=== PATIENT | female | born 1940 | race Hispanic/Latino ===

== ENCOUNTER 2020-03-30 23:54 | Emergency (ER) | payer MEDICARE, OTHER ==
[~2020-03-30] VITALS: Ht 152.4 cm; Wt 76.2 kg
--- NOTE | 2020-03-31 00:12 | Emergency Department Note ---
History of Present Illnes History of Present Illness Chief Complaint: Neurological History of Present Illness This is a 79 year old female arrives to the ED with complaints of tingling over her left upper extremity and left lower extremity. Patient states the tingling is present from her shoulder down to her fingers and tingling over her lower extremities from the knee down to her toes. Patient denies any true weakness, difficulty ambulating or slurred speech. Patient states symptoms present this morning is resolved and then returned again. Patient does admit to history of a electrolyte abnormalities in the past.. Historian: Patient Arrival Mode: Car Onset (how long ago): day(s) Radiation: Reports non-radiation Severity: mild Duration (how long): day(s) Timing of current episode: intermittent Progression: unchanged Chronicity: new Context: Denies recent illness Relieving factors: none Exacerbating factors: none Past Medical/Family History Physician Review I have reviewed the patient's past medical and family history. Any updates have been documented here. Past Medical History Recent Fever: No Clinical Suspicion of Infectio: No New/Unexplained Change in Ment: No Past Medical History: Hypertension, GERD, Hyperlipedemia Past Surgical History: Hysterectomy Social History Smoking Cessation: Never Smoker Alcohol Use: Social Review of Systems Review of Systems Constitutional: Reports no symptoms, Reports weakness EENTM: Reports no symptoms Cardiovascular: Reports no symptoms Respiratory: Reports no symptoms Gastrointestinal: Reports no symptoms Genitourinary: Reports no symptoms Musculoskeletal: Reports as per HPI Integumentary: Reports no symptoms Neurological: Reports no symptoms Psychological: Reports no symptoms Endocrine: Reports no symptoms Hematological/Lymphatic: Reports no symptoms Review of other systems: All other systems negative Physical Exam Related Data Allergies: Coded Allergies: Penicillins (Verified Allergy, Intermediate, 03/31/20) Triage Vital Signs Vital Signs Date Time Temp Pulse Resp B/P (MAP) Pulse Ox O2 Delivery O2 Flow Rate FiO2 03/30/20 23:56 98.6 84 18 131/48 98 Room Air Vital signs reviewed: Yes Physical Exam CONSTITUTIONAL Constitutional: Present well-developed, Present well-nourished HENT HENT: Present normocephalic, Present atraumatic, Present oropharynx clear/moist, Present nose normal HENT L/R: Present left ext ear normal, Present right ext ear normal EYES Eyes: Reports PERRL, Reports conjunctivae normal NECK Neck: Present ROM normal PULMONARY Pulmonary: Present effort normal, Present breath sounds normal CARDIOVASCULAR Cardiovascular: Present regular rhythm, Present heart sounds normal, Present capillary refill normal, Present normal rate GASTROINTESTINAL Abdominal: Present soft, Present nontender, Present bowel sounds normal GENITOURINARY Genitourinary: Present exam deferred SKIN Skin: Present warm, Present dry MUSCULOSKELETAL Musculoskeletal: Present ROM normal NEUROLOGICAL Neurological: Present alert, Present oriented x 3, Present no gross motor or sensory deficits; Absent cranial nerve deficit, Absent sensory deficit, Absent abnormal DTRs, Absent abnormal coordination, Absent abnormal gait, Absent weakness PSYCHOLOGICAL Psychological: Present mood/affect normal, Present judgement normal Results Laboratory Lab results reviewed: Yes Laboratory comments Laboratory Tests Test 03/31/20 00:02 White Blood Count 10.13 x10e3/uL (4.8-10.8) Red Blood Count 4.00 x10e6/uL (3.6-5.1) Hemoglobin 11.1 g/dL (12.0-16.0) Hematocrit 34.2 % (34.2-44.1) Mean Corpuscular Volume 85.5 fL (81-99) Mean Corpuscular Hemoglobin 27.8 pg (28-32) Mean Corpuscular Hemoglobin Concent 32.5 g/dL (31-35) Red Cell Distribution Width 13.3 % (11.7-14.4) Platelet Count 344 x10e3/uL (140-360) Neutrophils (%) (Auto) 61.0 % (38.7-80.0) Lymphocytes (%) (Auto) 24.5 % (18.0-39.1) Monocytes (%) (Auto) 5.7 % (4.4-11.3) Eosinophils (%) (Auto) 8.1 % (0.0-6.0) Basophils (%) (Auto) 0.4 % (0.0-1.0) Neutrophils # (Auto) 6.2 (2.1-6.9) Lymphocytes # (Auto) 2.5 (1.0-3.2) Monocytes # (Auto) 0.6 (0.2-0.8) Eosinophils # (Auto) 0.8 (0.0-0.4) Basophils # (Auto) 0.0 (0.0-0.1) Absolute Immature Granulocyte (auto 0.03 x10e3/uL (0-0.1) Sodium Level 137 mmol/L (136-145) Potassium Level 4.3 mmol/L (3.5-5.1) Chloride Level 100 mmol/L (98-107) Carbon Dioxide Level 25 mmol/L (22-29) Anion Gap 16.3 mmol/L (8-16) Blood Urea Nitrogen 15 mg/dL (7-26) Creatinine 0.80 mg/dL (0.57-1.11) Estimat Glomerular Filtration Rate > 60 ML/MIN (60-) BUN/Creatinine Ratio 19 (6-25) Glucose Level 110 mg/dL (74-118) Calcium Level 9.5 mg/dL (8.4-10.2) Total Bilirubin 0.2 mg/dL (0.2-1.2) Aspartate Amino Transf (AST/SGOT) 12 IU/L (5-34) Alanine Aminotransferase (ALT/SGPT) 15 IU/L (0-55) Alkaline Phosphatase 83 IU/L (40-150) Creatine Kinase 105 IU/L (29-168) Creatine Kinase MB 2.20 ng/mL (0-5.0) Troponin I < 0.001 ng/mL (0-0.300) Total Protein 7.5 g/dL (6.5-8.1) Albumin 3.8 g/dL (3.5-5.0) Globulin 3.7 g/dL (2.3-3.5) Albumin/Globulin Ratio 1.0 (0.8-2.0) Imaging Imaging results reviewed: Yes Impressions Impression: 1. No acute abnormalities. 2. Specifically, no acute vascular insults or acute hemorrhage. Chronic findings: * Mild generalized volume loss. * Mild parietal white matter microvascular ischemic changes. Procedures 12 Lead ECG Interpretation ECG Interpretation : ECG: ECG 1 Prior ECG tracings: reviewed Rhythm: sinus rhythm Rate: normal QRS axis: normal ST segments normal: Yes Clinical Impression: normal ECG Assessment & Plan Medical Decision Making MDM 79-year-old female arrives to the ED with atypical complaints of weakness and pins and needles. Patient harassing intact, her complaints do not fit a true cerebellar infarct. Spoke to family at length about concerning signs for a stroke. Patient and family expressed understanding. Patient and return steady gait and no neuro deficits. Assessment & Plan Final Impression: (1) Neuropathy Depart Disposition: HOME, SELF-CARE Last Vital Signs Date Time Temp Pulse Resp B/P (MAP) Pulse Ox O2 Delivery O2 Flow Rate FiO2 03/30/20 23:56 98.6 84 18 131/48 98 Room Air Medications in the ED Aspirin 81 mg PRN ONCE PO ; Start 03/31/20 at 00:15; Stop 03/31/20 at 00:16 ELBA HOOVER DO Mar 31, 2020 00:12
[2020-03-31] MEDS ORDERED: ASPIRIN 81 MG CHEW TAB PO ONE (00:15)
[2020-03-31 00:17] LABS: BASOPHILS % 0.4 % (0.0-1.0); EOSINOPHILS # (AUTO) 0.8 (0.0-0.4); EOSINOPHILS % 8.1 % (0.0-6.0); HEMATOCRIT 34.2 % (34.2-44.1); HEMOGLOBIN 11.1 g/dL (12.0-16.0); LYMPHOCYTES # (AUTO) 2.5 (1.0-3.2); LYMPHOCYTES % 24.5 % (18.0-39.1); MEAN CORPUSCULAR HEMOGLOBIN 27.8 pg (28-32); MEAN CORPUSCULAR HGB CONC 32.5 g/dL (31-35); MEAN CORPUSCULAR VOLUME 85.5 fL (81-99); MONOCYTES # (AUTO) 0.6 (0.2-0.8); MONOCYTES % 5.7 % (4.4-11.3); NEUTROPHILS # (AUTO) 6.2 (2.1-6.9); PLATELET COUNT 344 x10e3/uL (140-360); RED CELL DISTRIBUTION WIDTH 13.3 % (11.7-14.4)
[2020-03-31 00:33] LABS: ALANINE AMINOTRANSFERASE 15 IU/L (0-55); ALBUMIN 3.8 g/dL (3.5-5.0); ALKALINE PHOSPHATASE 83 IU/L (40-150); ANION GAP 16.3 mmol/L (8-16); BLOOD UREA NITROGEN 15 mg/dL (7-26); BUN/CREATININE RATIO 19 (6-25); CALCIUM 9.5 mg/dL (8.4-10.2); CARBON DIOXIDE 25 mmol/L (22-29); CHLORIDE 100 mmol/L (98-107); CREATINE KINASE 105 IU/L (29-168); EST GLOMERULAR FILTRATION RATE > 60 ML/MIN (60-); GLUCOSE 110 mg/dL (74-118); POTASSIUM 4.3 mmol/L (3.5-5.1); SODIUM 137 mmol/L (136-145)
--- NOTE | 2020-03-31 01:11 | Diagnostic Imaging Report ---
History:left weakness Comparison studies:None Technique: Axial images were obtained from the skull base to the vertex. Coronal and sagittal images reconstructed from the axial data. Intravenous contrast: None Findings: Scalp/skull: No abnormalities. Extra-axial spaces: No masses. No fluid collections. Brain sulci: Mildly prominent. Ventricles: Mild compensatory dilatation. No hydrocephalus. Parenchyma: Subtle bilateral supratentorial white matter hypodensities are small vessel microvascular changes. A 4mm dystrophic calcification in the left putamen is not associated with surrounding edema. No masses, hemorrhage, acute or chronic vascular insults. Sellar/suprasellar region: No abnormalities. Craniocervical junction: Patent foramen magnum. No Chiari one malformation. Incidental findings: Subtle atherosclerotic calcifications in the carotid siphons Non obstructing retention cyst in the left sphenoid sinus. Impression: 1. No acute abnormalities. 2. Specifically, no acute vascular insults or acute hemorrhage. Chronic findings: * Mild generalized volume loss. * Mild parietal white matter microvascular ischemic changes. Signed by: Dr. Yasir Hooper M.D. on 03/31/2020 1:08 AM
[2020-03-31 01:33] VITALS: BP 133/51
== END 2020-03-31 01:45 | disposition home or self-care (01) ==
LOC: ER 03-31 01:00
DX: G62.9 Polyneuropathy, unspecified (principal); I10 Essential (primary) hypertension; E78.5 Hyperlipidemia, unspecified; K21.9 Gastro-esophageal reflux disease without esophagitis
CPT/HCPCS: 36415; 70450; 80053; 82550; 82553; 84484; 85025; 93005; 99284

== ENCOUNTER 2020-04-25 21:29 | Emergency (ER) | payer MEDICARE, OTHER ==
[~2020-04-25] VITALS: Ht 152.4 cm; Wt 76.2 kg
[2020-04-25] MEDS ORDERED: PANTOPRAZOLE 40 MG 10ML VIAL IV STA (22:03)
[2020-04-25] MEDS ORDERED: MORPHINE SULFATE 2 MG/ML SYR 1ML IV STA (22:03)
[2020-04-25] MEDS ORDERED: ONDANSETRON HCL INJ 2MG/ML 2ML 2 MG/ML VIAL IV STA (22:03)
[2020-04-25 22:18] LABS: BASOPHILS # (AUTO) 0.1 (0.0-0.1); BASOPHILS % 0.9 % (0.0-1.0); EOSINOPHILS # (AUTO) 0.4 (0.0-0.4); EOSINOPHILS % 4.3 % (0.0-6.0); HEMATOCRIT 37.5 % (34.2-44.1); HEMOGLOBIN 12.3 g/dL (12.0-16.0); LYMPHOCYTES # (AUTO) 2.1 (1.0-3.2); LYMPHOCYTES % 23.6 % (18.0-39.1); MEAN CORPUSCULAR HEMOGLOBIN 27.8 pg (28-32); MEAN CORPUSCULAR HGB CONC 32.8 g/dL (31-35); MEAN CORPUSCULAR VOLUME 84.7 fL (81-99); MONOCYTES # (AUTO) 0.7 (0.2-0.8); MONOCYTES % 7.4 % (4.4-11.3); NEUTROPHILS # (AUTO) 5.7 (2.1-6.9); NEUTROPHILS % 63.6 % (38.7-80.0); PLATELET COUNT 364 x10e3/uL (140-360); RED BLOOD COUNT 4.43 x10e6/uL (3.6-5.1); RED CELL DISTRIBUTION WIDTH 13.3 % (11.7-14.4)
--- NOTE | 2020-04-25 22:27 | Emergency Department Note ---
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 Historian: Patient Arrival Mode: Car Onset (how long ago): day(s) (3) Location: UPPER ABDOMEN Quality: PAIN Radiation: Reports back Severity: moderate Onset quality: gradual Duration (how long): day(s) (3) Timing of current episode: constant Progression: worsening Context: Denies recent illness, Denies recent surgery, Denies trauma/injury Relieving factors: none Exacerbating factors: eating Associated symptoms: Reports denies other symptoms Past Medical/Family History Physician Review I have reviewed the patient's past medical and family history. Any updates have been documented here. Past Medical History Recent Fever: No Clinical Suspicion of Infectio: No New/Unexplained Change in Ment: No Past Medical History: Hypertension, GERD, Hyperlipedemia Past Surgical History: Hysterectomy Social History Smoking Cessation: Never Smoker Alcohol Use: None Any Illegal Drug Use: No Physically hurt or threatened: No Family History Family history of heart diseas: No Other family history HTN Review of Systems Review of Systems Constitutional: Reports no symptoms EENTM: Reports no symptoms Cardiovascular: Reports no symptoms Respiratory: Reports no symptoms Gastrointestinal: Reports as per HPI Genitourinary: Reports no symptoms Musculoskeletal: Reports no symptoms Integumentary: Reports no symptoms Neurological: Reports no symptoms Psychological: Reports no symptoms Endocrine: Reports no symptoms Hematological/Lymphatic: Reports no symptoms Physical Exam Related Data Allergies: Coded Allergies: Penicillins (Verified Allergy, Intermediate, 03/31/20) Triage Vital Signs Vital Signs Date Time Temp Pulse Resp B/P (MAP) Pulse Ox O2 Delivery O2 Flow Rate FiO2 04/25/20 21:35 99.2 84 18 162/66 97 Room Air Vital signs reviewed: Yes Physical Exam CONSTITUTIONAL Constitutional: Present well-developed, Present well-nourished HENT HENT: Present normocephalic, Present atraumatic, Present oropharynx clear/moist, Present nose normal HENT L/R: Present left ext ear normal, Present right ext ear normal EYES Eyes: Reports PERRL, Reports conjunctivae normal NECK Neck: Present ROM normal PULMONARY Pulmonary: Present effort normal, Present breath sounds normal CARDIOVASCULAR Cardiovascular: Present regular rhythm, Present heart sounds normal, Present capillary refill normal, Present normal rate GASTROINTESTINAL Abdominal: Present soft, Present bowel sounds normal, Present tender (EPIGASTRTIC, RUQ ) GENITOURINARY Genitourinary: Present exam deferred SKIN Skin: Present warm, Present dry MUSCULOSKELETAL Musculoskeletal: Present ROM normal NEUROLOGICAL Neurological: Present alert, Present oriented x 3, Present no gross motor or sensory deficits PSYCHOLOGICAL Psychological: Present mood/affect normal, Present judgement normal Results Laboratory Laboratory Laboratory Tests Test 04/25/20 22:05 04/25/20 21:49 White Blood Count 8.91 x10e3/uL (4.8-10.8) Red Blood Count 4.43 x10e6/uL (3.6-5.1) Hemoglobin 12.3 g/dL (12.0-16.0) Hematocrit 37.5 % (34.2-44.1) Mean Corpuscular Volume 84.7 fL (81-99) Mean Corpuscular Hemoglobin 27.8 pg (28-32) Mean Corpuscular Hemoglobin Concent 32.8 g/dL (31-35) Red Cell Distribution Width 13.3 % (11.7-14.4) Platelet Count 364 x10e3/uL (140-360) Neutrophils (%) (Auto) 63.6 % (38.7-80.0) Lymphocytes (%) (Auto) 23.6 % (18.0-39.1) Monocytes (%) (Auto) 7.4 % (4.4-11.3) Eosinophils (%) (Auto) 4.3 % (0.0-6.0) Basophils (%) (Auto) 0.9 % (0.0-1.0) Neutrophils # (Auto) 5.7 (2.1-6.9) Lymphocytes # (Auto) 2.1 (1.0-3.2) Monocytes # (Auto) 0.7 (0.2-0.8) Eosinophils # (Auto) 0.4 (0.0-0.4) Basophils # (Auto) 0.1 (0.0-0.1) Absolute Immature Granulocyte (auto 0.02 x10e3/uL (0-0.1) Sodium Level 133 mmol/L (136-145) Potassium Level 4.3 mmol/L (3.5-5.1) Chloride Level 98 mmol/L (98-107) Carbon Dioxide Level 24 mmol/L (22-29) Anion Gap 15.3 mmol/L (8-16) Blood Urea Nitrogen 12 mg/dL (7-26) Creatinine 1.04 mg/dL (0.57-1.11) Estimat Glomerular Filtration Rate 51 ML/MIN (60-) BUN/Creatinine Ratio 12 (6-25) Glucose Level 117 mg/dL (74-118) Calcium Level 9.6 mg/dL (8.4-10.2) Total Bilirubin 0.4 mg/dL (0.2-1.2) Aspartate Amino Transf (AST/SGOT) 17 IU/L (5-34) Alanine Aminotransferase (ALT/SGPT) 20 IU/L (0-55) Alkaline Phosphatase 97 IU/L (40-150) Creatine Kinase 223 IU/L (29-168) Creatine Kinase MB 5.50 ng/mL (0-5.0) Troponin I < 0.001 ng/mL (0-0.300) Total Protein 8.1 g/dL (6.5-8.1) Albumin 4.2 g/dL (3.5-5.0) Globulin 3.9 g/dL (2.3-3.5) Albumin/Globulin Ratio 1.1 (0.8-2.0) Amylase Level 133 U/L (25-125) Lipase 24 U/L (8-78) Urine Color Yellow (YELLOW) Urine Clarity Sl cloudy (CLEAR) Urine pH 5.5 (5 - 7) Urine Specific [place] 1.010 (1.010-1.025) Urine Protein Trace (NEGATIVE) Urine Glucose (UA) Negative (NEGATIVE) Urine Ketones Negative (NEGATIVE) Urine Blood Moderate (NEGATIVE) Urine Nitrite Negative (NEGATIVE) Urine Bilirubin Negative (NEGATIVE) Urine Urobilinogen 0.2 mg/dL (0.2 - 1) Urine Leukocyte Esterase Negative (NEGATIVE) Urine RBC 6-10 /HPF (0-5) Urine WBC 0-5 /HPF (0-5) Urine Epithelial Cells Few /LPF (NONE) Urine Bacteria Few /HPF (NONE) Urine Mucus Few (RARE) Laboratory Tests Test 04/25/20 22:05 04/25/20 21:49 Lab results reviewed: Yes Imaging Imaging results reviewed: Yes Impressions Procedure: [id number] US/US GALLBLADDER Exam Date: 04/25/20 Exam Time: 2227 REPORT STATUS: Signed EXAM: Right Upper Quadrant Ultrasound INDICATION: ^RUQ PAIN COMPARISON: None. TECHNIQUE: Transverse and longitudinal images of the right upper abdomen were obtained. FINDINGS: Liver: Size: 15.4 cm in the right midclavicular line, normal Appearance: Normal echogenicity, smooth contour Mass: No focal masses Gallbladder: Stones/Sludge: None Wall: 0.26 cm Appearance: No pericholecystic fluid or hydrops. Sonographic Guo's Sign: Negative Bile Ducts: Intrahepatic Ducts: No dilatation Extrahepatic Ducts: Common bile duct measures 0.4 cm, no dilatation Pancreas: Partially visualized due to overlying bowel gas. Right Kidney: Size: 9.5 cm Echogenicity: Normal Parenchymal thickness: Normal Collecting system: No hydronephrosis Stones: None Cyst/Mass: None Vessels: Aorta: Visualized portions are normal Inferior Vena Cava: Visualized portions are normal Main portal vein: Normal size and flow direction. Free Fluid: No ascites or pleural effusion IMPRESSION: 1. Normal exam. No cholelithiasis or evidence of acute cholecystitis. 2. Limited evaluation of the pancreas due to overlying bowel gas. Signed by: Skye Patel MD on 04/25/2020 10:57 PM Dictated By: SKYE PATEL MD 56 Transcribed By: LUISA on 04/25/202256 COPY TO: BAUTISTA MCLAUGHLIN MD~ Procedures 12 Lead ECG Interpretation ECG Interpretation : ECG: ECG 1 [employer]: Interpreted by ED physician Date: Apr 25, 2020 Time: 21:57 Rhythm: sinus rhythm Rate: normal BPM: 89 QRS axis: normal ST segments normal: Yes T waves normal: Yes Other findings: no other findings Clinical Impression: normal ECG Assessment & Plan Medical Decision Making MDM PT WITH UPPER ABD PAIN RADIATING TO BACK CBC, CMP, EKG, AMYLASE, LIPASE, UA, GALLBLADDER ULTRASOUND ORDERED TO EVAL FOR PANCREATITIS, ELEVATED LFT'S, UTI, GALLSTONES MORPHINE 2 MG IV ORDERED ZOFRAN 4 MG IV ORDERED PROTONIX 40 MG IV PT DISCHARGED WITH PRESCRIPTIONS FOR PROTONIX 40 MG PO QD ZOFRAN ODT 4 MG 1 SL Q 6 HOURS PRN NAUSEA INSTRUCTED ON BLAND DIET REFERRED TO DR Stephanie GOMEZ Assessment & Plan Final Impression: (1) Gastritis (2) Abdominal pain Depart Disposition: HOME, SELF-CARE Last Vital Signs Date Time Temp Pulse Resp B/P (MAP) Pulse Ox O2 Delivery O2 Flow Rate FiO2 04/25/20 21:35 99.2 84 18 162/66 97 Room Air Medications in the ED Morphine Sulfate 2 mg NOW STAT IV ; Start 04/25/20 at 22:03; Stop 04/25/20 at 22:04 Pantoprazole Sodium 40 mg NOW STAT IV ; Start 04/25/20 at 22:03; Stop 04/25/20 at 22:04 Ondansetron HCl 4 mg NOW STAT IV ; Start 04/25/20 at 22:03; Stop 04/25/20 at 22:04 BAUTISTA MCLAUGHLIN MD Apr 25, 2020 22:27
[2020-04-25 22:34] LABS: AMYLASE 133 U/L (25-125); LIPASE 24 U/L (8-78)
[2020-04-25 22:36] LABS: ALANINE AMINOTRANSFERASE 20 IU/L (0-55); ALBUMIN 4.2 g/dL (3.5-5.0); ALBUMIN/GLOBULIN RATIO 1.1 (0.8-2.0); ALKALINE PHOSPHATASE 97 IU/L (40-150); ANION GAP 15.3 mmol/L (8-16); BLOOD UREA NITROGEN 12 mg/dL (7-26); BUN/CREATININE RATIO 12 (6-25); CALCIUM 9.6 mg/dL (8.4-10.2); CARBON DIOXIDE 24 mmol/L (22-29); CHLORIDE 98 mmol/L (98-107); CREATINE KINASE 223 IU/L (29-168); CREATININE, SERUM 1.04 mg/dL (0.57-1.11); EST GLOMERULAR FILTRATION RATE 51 ML/MIN (60-); GLUCOSE 117 mg/dL (74-118); POTASSIUM 4.3 mmol/L (3.5-5.1); SODIUM 133 mmol/L (136-145)
[2020-04-25 22:37] LABS: CLARITY,URINE SL CLOUDY (CLEAR); COLOR,URINE YELLOW (YELLOW); LEUKOCYTE ESTERASE ,URINE NEGATIVE (NEGATIVE); NITRITE,URINE NEGATIVE (NEGATIVE)
[2020-04-25 22:38] LABS: BILIRUBIN,URINE NEGATIVE (NEGATIVE); KETONES,URINE NEGATIVE (NEGATIVE); PROTEIN,URINE DIPSTICK TRACE (NEGATIVE); URINE UROBILINOGEN 0.2 mg/dL (0.2 - 1)
[2020-04-25 22:44] LABS: BACTERIA,URINE FEW /HPF; WBC,URINE (MAN) 0-5 /HPF (0-5)
[2020-04-25 22:45] LABS: EPITHELIAL CELLS,URINE FEW /LPF; MUCUS,URINE FEW (RARE)
--- NOTE | 2020-04-25 23:01 | Diagnostic Imaging Report ---
EXAM: Right Upper Quadrant Ultrasound INDICATION: ^RUQ PAIN COMPARISON: None. TECHNIQUE: Transverse and longitudinal images of the right upper abdomen were obtained. FINDINGS: Liver: Size: 15.4 cm in the right midclavicular line, normal Appearance: Normal echogenicity, smooth contour Mass: No focal masses Gallbladder: Stones/Sludge: None Wall: 0.26 cm Appearance: No pericholecystic fluid or hydrops. Sonographic Guo's Sign: Negative Bile Ducts: Intrahepatic Ducts: No dilatation Extrahepatic Ducts: Common bile duct measures 0.4 cm, no dilatation Pancreas: Partially visualized due to overlying bowel gas. Right Kidney: Size: 9.5 cm Echogenicity: Normal Parenchymal thickness: Normal Collecting system: No hydronephrosis Stones: None Cyst/Mass: None Vessels: Aorta: Visualized portions are normal Inferior Vena Cava: Visualized portions are normal Main portal vein: Normal size and flow direction. Free Fluid: No ascites or pleural effusion IMPRESSION: 1. Normal exam. No cholelithiasis or evidence of acute cholecystitis. 2. Limited evaluation of the pancreas due to overlying bowel gas. Signed by: Kareem Palmer MD on 04/25/2020 10:57 PM
--- OUTSIDE RECORDS SUMMARY | 2020-04-26 00:54 | XMS REPORT | Continuity of Care Document ---
Author Author [facility] t Organization [facility] t Address [address] [place] [address] Phone Unavailable Care Team Providers Care Power Nut Runner Operator Name Role Phone NO, PCP PCP Unavailable Luciana MCLAUGHLIN Attphys Unavailable Viviane HOOVER Attphys Unavailable Payers Payer Name Policy Type Policy Number Effective Date Expiration Date Viviane Landers Medicare [id number] 2020 00:00:00 [facility] [employer] [id number] 2011 00:00:00 [facility] Problems Condition Name Condition Details Condition Category Status Onset Date Resolution Date Last Treatment Date Treating Clinician Comments Source Mass on back Mass on back Disease Active 2017-10-15 00:00:00 [facility] Neuropathy Problem Active [facility] Allergies, Adverse Reactions, Alerts Allergy Name Allergy Type Status Severity Reaction(s) Onset Date Inacti ve Date Treating Clinician Comments Source Penicillin Allergy to substance Active Moderate 2020-03-31 00:00:0 0 [facility] Penicillin Propensity to adverse reactions to drug Active Rash, Swelling 2016-07-22 00:00:00 Chidi oliveira Social History Social Habit Start Date Stop Date Quantity Comments Source Sex Assigned At [facility] Alcohol intake 2016-07-22 00:00:00 2016-07-22 00:00:00 Current non-drinker of alcohol (finding) [facility] Smoking Status Start Date Stop Date Source Never smoker [facility] Medications Ordered Medication Name Filled Medication Name Start Date Stop Da te Current Medication? Ordering Clinician Indication Dosage Frequency Signature (SIG) Comments Components Source ibuprofen (MOTRIN) 800 mg tablet 2016-07-22 00:00:00 Yes Pain, dental 800mg Take 1 tablet by mouth every 8 hours as needed for Pain (take with food). [facility] gabapentin (NEURONTIN) 300 mg capsule 2011-05-02 00:00:00 Yes Renal colic 300mg Take 1 Cap by mouth daily before a meal. [facility] Vital Signs Vital Name Observation Time Observation Value Comments Source Body Temperature 2020-03-31 01:33:00 98.4 [degF] [facility] Weight 2020-03-30 23:56:00 168 [lb_av] [facility] BMI (Body Mass Index) 2020-03-30 23:56:00 32.8 kg/m2 [facility] Procedures Procedure Date / Time Performed Performing Clinician Sourc e Computed tomography of brain without radiopaque contrast 2020-03 00:00:00 [facility] Plan of Care Planned Activity Planned Date Details Comments Source Future Scheduled Test 2020-06-18 00:00:00 IMM Influenza Seas onal Jun to November (>/= 19 yrs) [code = IMM Influenza Seasonal Jun to November (>/= 19 yrs)] [facility] Future Scheduled Test 2006 00:00:00 IMM Pneumococcal A ge 65 and Up [code = IMM Pneumococcal Age 65 and Up] [facility] Instructions Diabetic Neuropathy [facility] Encounters Start Date/Time End Date/Time Encounter Type Admission Type Attendi [facility] Care Department Encounter ID Source 2020-03-31 01:00:00 2020-03-31 01:45:00 Departed Emergency Room ELBA HOOVER [facility] [id number] [facility] 2019-07-16 10:36:00 2019-07-16 10:36:00 Emergency E [facility] [id number] [facility] 2018-09-07 20:09:00 2018-09-07 20:09:00 Emergency E [facility] [address] [facility] 2017-10-15 17:12:18 2017-10-15 17:12:18 Emergency [facility] MED [id number] [facility] Results Test Description Test Time Test Comments Results Result Comments Source US GALLBLADDER 2020-04-25 22:52:00 [place] [address] Patient Name: TRELL BURROWS MR #: [id number] : 1940 Age/Sex: 79/F Req #: [id number] Adm Physician: Ordered by: BAUTISTA MCLAUGHLIN MD Report #: [id number] Location: ER Room/Bed: Procedure: [id number] US/US GALLBLADDER Exam Date: 04/25/20 Exam Time: 2227 REPORT STATUS: Signed EXAM: Right Upper Quadrant Ultrasound INDICATION: RUQ PAIN COMPARISON: None. TECHNIQUE: Transverse and longitudinal images of the right upper abdomen were obtained. FINDINGS: Liver: Size: 15.4 cm in the right midclavicular line, normal Appearance: Normal echogenicity, smooth contour Mass: No focal masses Gallbladder: Stones/Sludge: None Wall: 0.26 cm Appearance: No pericholecystic fluid or hydrops. Sonographic Guo's Sign: Negative Bile Ducts: Intrahepatic Ducts: No dilatation Extrahepatic Ducts: Common bile duct measures 0.4 cm, no dilatation Pancreas: Partially visualized due to overlying bowel gas. Right Kidney: Size: 9.5 cm Echogenicity: Normal Parenchymal thickness: Normal Collecting system: No hydronephrosis Stones: None Cyst/Mass: None Vessels: Aorta: Visualized portions are normal Inferior Vena Cava: Visualized portions are normal Main portal vein: Normal size and flow direction. Free Fluid: No ascites or pleural effusion IMPRESSION: 1. Normal exam. No cholelithiasis or evidence of acute cholecystitis. 2. Limited evaluation of the pancreas due to overlying bowel gas. Signed by: Skye Patel MD on 04/25/2020 10:57 PM Dictated By: SKYE PATEL MD 56 Transcribed By: LUISA on 04/25/202256 COPY TO: BAUTISTA MCLAUGHLIN MD CT BRAIN WO 2020-03-31 00:53:00 [place] [address] Patient Name: TRELL BURROWS MR #: [id number] : 1940 Age/Sex: 79/F Req #: [id number] Adm Physician: Ordered by: ELBA HOOVER DO Report #: [id number] Location: ER Room/Bed: Procedure: [id number] CT/CT BRAIN WO Exam Date: 03/31/20 Exam Time: 0030 REPORT STATUS: Signed History:left weakness Comparison studies:None Technique: Axial images were obtained from the skull base to the vertex. Coronal and sagittal images reconstructed from the axial data. Intravenous contrast: None Findings: Scalp/skull: No abnormalities. Extra- axial spaces: No masses. No fluid collections. Brain sulci: Mildly prominent. Ventricles: Mild compensatory dilatation. No hydrocephalus. Parenchyma: Subtle bilateral supratentorial white matter hypodensities are small vessel microvascular changes. A 4mm dystrophic calcification in the left putamen is not associated with surrounding edema. No masses, hemorrhage, acute or chronic vascular insults. Sellar/suprasellar region: No abnormalities. Craniocervical junction: Patent foramen magnum. No Chiari one malformation. Incidental findings: Subtle atherosclerotic calcifications in the carotid siphons Non obstructing retention cyst in the left sphenoid sinus. Impression: 1. No acute abnormalities. 2. Specifically, no acute vascular insults or acute hemorrhage. Chronic findings: * Mild generalized volume loss. * Mild parietal white matter microvascular ischemic changes. Signed by: Dr. Yasir Hooper M.D. on 03/31/2020 1:08 AM Dictated By: YASIR HOOPER MD 7 Transcribed By: LUISA on 03/31/20107 COPY TO: ELBA HOOVER DO Blood leukocytes automated count (number/volume) 2020-03-31 00:02:00 Test Item White Blood Count (test code = 6690-2) 10.13 4.8-10.8 [facility] count (number/volume)2020-03-31 00:02:00* Test Item Value Reference Range Interpretation Comments Red Blood Count (test code = 789-8) 4.00 3.6-5.1 [facility] measurement (moles/volume)2020-03-31 00:02:00* Test Item Value Reference Range Interpretation Comments Hemoglobin (test code = 33209-8) 11.1 12.0-16.0 [facility] blood hematocrit (volume fraction)2020-03-31 00:02:00* Test Item Value Reference Range Interpretation Comments Hematocrit (test code = 4544-3) 34.2 34.2-44.1 [facility] erythrocyte mean corpuscular [id number] 00:02:00* Test Item Value Reference Range Interpretation Comments Mean Corpuscular Volume (test code = 787-2) 85.5 81-99 [facility] eryth[facility] mean corpuscular hemoglobin (mass per erythrocyte)2020-03-31 00:02:00* Test Item Value Reference Range Interpretation Comments Mean Corpuscular Hemoglobin (test code = 785-6) 27.8 28-32 [facility] Center[facility] erythrocyte mean corpuscular hemoglobin concentration measurement (mass/volume)2020-03-31 00:02:00* Test Item Value Reference Range Interpretation Comments Mean Corpuscular Hemoglobin Concent (test code = 786-4) 32.5 31-35 [facility] CenterRDW VhyGt-[id number] 00:02:00* Test Item Value Reference Range Interpretation Comments Red Cell Distribution Width (test code = 80435-5) 13.3 11.7 -14.4 [facility] blood platelet count (count/volume)2020-03-31 00:02:00* Test Item Value Reference Range Interpretation Comments Platelet Count (test code = 777-3) 344 140-360 [facility] Center[facility] blood segmented neutrophil count as percentage of total pntkuwakgh5354-61-93 00:02:00* Test Item Value Reference Range Interpretation Comments Neutrophils (%) (Auto) (test code = 35339-2) 61.0 38.7-80.0 [facility] blood lymphocyte count as percentage ot total btmauttckw1577-10-20 00:02:00* Test Item Value Reference Range Interpretation Comments Lymphocytes (%) (Auto) (test code = 736-9) 24.5 18.0-39.1 [facility] blood monocyte count as percentage of total qpvwyyzyhg5629-15-95 00:02:00* Test Item Value Reference Range Interpretation Comments Monocytes (%) (Auto) (test code = 5905-5) 5.7 4.4-11.3 [facility] CenterAut[facility] centered blood eosinophil count as percentage of total zulbgzaylr6453-66-34 00:02:00* Test Item Value Reference Range Interpretation Comments Eosinophils (%) (Auto) (test code = 713-8) 8.1 0.0-6.0 [facility] Center[facility] blood basophil count as percentage of total zdetkdklds2444-18-07 00:02:00* Test Item Value Reference Range Interpretation Comments Basophils (%) (Auto) (test code = 706-2) 0.4 0.0-1.0 [facility] CenterFluoroscopic procedure less than one hour vhruvszu5373-96-98 00:02:00* Test Item Value Reference Range Interpretation Comments IM GRANULOCYTES % (test code = IM GRANULOCYTES %) 0.3 0.0- 1.0 [facility] Center[facility] blood neutrophil count 2020-03-31 00:02:00* Test Item Value Reference Range Interpretation Comments Neutrophils # (Auto) (test code = 751-8) 6.2 2.1-6.9 [facility] CenterBlood lymphocytes count (number/volume) 2020-03-31 00:02:00* Test Item Value Reference Range Interpretation Comments Lymphocytes # (Auto) (test code = 01429-5) 2.5 1.0-3.2 [facility] CenterBlood monocytes automated count (number/volume)2020-03-31 00:02:00* Test Item Value Reference Range Interpretation Comments Monocytes # (Auto) (test code = 742-7) 0.6 0.2-0.8 [facility] CenterAutom[facility] blood eosinophil count 2020-03-31 00:02:00* Test Item Value Reference Range Interpretation Comments Eosinophils # (Auto) (test code = 711-2) 0.8 0.0-0.4 [facility] CenterAutom[facility] blood basophil count (count/volume)2020-03-31 00:02:00* Test Item Value Reference Range Interpretation Comments Basophils # (Auto) (test code = 704-7) 0.0 0.0-0.1 [facility] CenterFluoroscopic procedure less than one hour ifxtjksb0231-48-69 00:02:00* Test Item Value Reference Range Interpretation Comments Absolute Immature Granulocyte (auto (cherrie t code = Absolute Immature Granulocyte (auto) 0.03 0-0.1 [facility] sodium measurement (moles/volume)2020-03-31 00:02:00* Test Item Value Reference Range Interpretation Comments Sodium Level (test code = 2951-2) 137 136-145 [facility] or plasma potassium measurement (moles/volume)2020-03-31 00:02:00* Test Item Value Reference Range Interpretation Comments Potassium Level (test code = 2823-3) 4.3 3.5-5.1 [facility] Hospital[facility] or plasma chloride measurement (moles/volume)2020-03-31 00:02:00* Test Item Value Reference Range Interpretation Comments Chloride Level (test code = 2075-0) 100 98-107 [facility]erum or plasma carbon dioxide, total measurement (moles/volume)2020-03-31 00:02:00* Test Item Value Reference Range Interpretation Comments Carbon Dioxide Level (test code = 2028-9) 25 22-29 [facility]um or plasma anion erj4222-37-56 00:02:00* Test Item Value Reference Range Interpretation Comments Anion Gap (test code = 10361-0) 16.3 8-16 [facility] or plasma urea nitrogen measurement (mass/volume)2020-03-31 00:02:00* Test Item Value Reference Range Interpretation Comments Blood Urea Nitrogen (test code = 3094-0) 15 7-26 [facility] or plasma creatinine measurement (mass/volume)2020-03-31 00:02:00* Test Item Value Reference Range Interpretation Comments Creatinine (test code = 2160-0) 0.80 0.57-1.11 [facility] or plasma urea nitrogen/creatinine mass ncekq5667-54-00 00:02:00* Test Item Value Reference Range Interpretation Comments BUN/Creatinine Ratio (test code = 3097-3) 19 6-25 [facility] CenterEstimated glomerular filtration rate (GFR) whgjmoljygxla8560-62-12 00:02:00* Test Item Value Reference Range Interpretation Comments Estimat Glomerular Filtration Rate (test code = 574801810) > 60 >60 Ranges were taken from the National Kidney Disease Education Program and the [facility] Foundation literature.Reference ranges:60 or greater: Fkxvgg23-22 ( for 3 consecutive months): Chronic kidney disease 15 or less: Kidney failureWhite Rock Medical CenterGlucose rbfmpbsfqoe4013-20-86 00:02:00* Test Item Value Reference Range Interpretation Comments Glucose Level (test code = JWJ1116) 110 74-118 [facility]er[facility] or plasma calcium measurement (mass/volume)2020-03-31 00:02:00* Test Item Value Reference Range Interpretation Comments Calcium Level (test code = 42028-7) 9.5 8.4-10.2 [facility] Hospitalerum or plasma total bilirubin measurement (mass/volume)2020-03-31 00:02:00* Test Item Value Reference Range Interpretation Comments Total Bilirubin (test code = 1975-2) 0.2 0.2-1.2 [facility] CenterFluoroscopic procedure less than one hour kkodnfmv7849-68-66 00:02:00* Test Item Value Reference Range Interpretation Comments Aspartate Amino Transf (AST/SGOT) (test code = Aspartate Amino Transf (AST/SGOT)) 12 5-34 [facility] Hospitalerum or plasma alanine aminotransferase measurement (enzymatic activity/volume)2020-03-31 00:02:00* Test Item Value Reference Range Interpretation Comments Alanine Aminotransferase (ALT/SGPT) (test code = 1742-6) 15 0-55 [facility] Hospitalerum or plasma protein measurement (mass/volume)2020-03-31 00:02:00* Test Item Value Reference Range Interpretation Comments Total Protein (test code = 2885-2) 7.5 6.5-8.1 [facility] Hospitalerum or plasma albumin measurement (mass/volume)2020-03-31 00:02:00* Test Item Value Reference Range Interpretation Comments Albumin (test code = 1751-7) 3.8 3.5-5.0 [facility] CenterPlasma globulin measurement (mass/volume) 2020-03-31 00:02:00* Test Item Value Reference Range Interpretation Comments Globulin (test code = 22556-0) 3.7 2.3-3.5 [facility] Hospitalerum or plasma albumin/globulin mass nvrid4852-13-05 00:02:00* Test Item Value Reference Range Interpretation Comments Albumin/Globulin Ratio (test code = 1759-0) 1.0 0.8-2.0 [facility] Hospitalerum or plasma alkaline phosphatase measurement (enzymatic activity/volume)2020-03-31 00:02:00* Test Item Value Reference Range Interpretation Comments Alkaline Phosphatase (test code = 6768-6) 83 40-150 [facility] Hospitalerum or plasma creatine kinase measurement (enzymatic activity/volume)2020-03-31 00:02:00* Test Item Value Reference Range Interpretation Comments Creatine Kinase (test code = 2157-6) 105 29-168 [facility] Hospitalerum or plasma creatine kinase MB measurement (mass/volume)2020-03-31 00:02:00* Test Item Value Reference Range Interpretation Comments Creatine Kinase MB (test code = 72389-6) 2.20 0-5.0 [facility] CenterTroponin I measurement by highly sensitive enzyme phiqmsyalcr0186-10-34 00:02:00* Test Item Value Reference Range Interpretation Comments Troponin I (test code = 96847-6) < 0.001 0-0.300 [facility]
--- OUTSIDE RECORDS SUMMARY | 2020-04-26 00:54 | XMS REPORT | Clinical Summary ---
Author Author [facility] Organization [facility] Address Unknown Phone Unavailable Care Team Providers Care Account Services Manager Name Role Phone PCP Unavailable Allergies Comments Active Allergy Reactions Severity Noted Date Penicillin Rash, 07/22/2016 Swelling Medications End Date Status Medication Sig Dispensed Refills Start Date Active gabapentin (NEURONTIN) Take 1 Cap by 30 Cap 0 0 300 mg mouth daily 1 capsuleIndications: before a Neuropathic pain, Renal meal. colic Active ibuprofen (MOTRIN) 800 mg Take 1 tablet 30 tablet 0 tabletIndications: Pain, by mouth 6 dental every 8 hours as needed for Pain (take with food). Active Problems Problem Noted Date Mass on back 10/15/2017 Immunizations Name Administration Dates Next Due Influenza Vaccine 07/22/2016 (Deferred: Other ) Pneumococcal 13-valent 07/22/2016 (Deferred: Other ) conj 0.5 mL injection Social History Date Tobacco Use Types Packs/Day Years Used Never Smoker Drinks/Week oz/Week Comments Alcohol Use No Sex Assigned at Date Recorded Not on file Industry Job Start Date Occupation Not on file Not on file Not on file Travel End Travel History Travel Start No recent travel history available. Last Filed Vital Signs Not on file Plan of Treatment Health Maintenance Due Date Last Done Comments IMM Pneumococcal Age 65 2006 and Up IMM Influenza Seasonal 06/18/2020Jun to November (>/= 19 yrs) Results Not on fileafter 2019 Insurance Type Payer Benefit Subscriber ID Effective Phone Address Plan / Dates Group MEDICARE MEDICARE xxxxxxxxxxx 2011-P [id number] [place] [address] CALLES MEDICARE OPTIONS CALLES xxxxxxxxxxxx 2015-P [employer] HMO DUAL resent [id number] OPTION MMP [address] [address] [place] [address] (Work)
== END 2020-04-25 23:58 | disposition home or self-care (01) ==
LOC: ER 21:49
DX: R10.13 Epigastric pain (principal); K29.70 Gastritis, unspecified, without bleeding; I10 Essential (primary) hypertension; E78.5 Hyperlipidemia, unspecified; K21.9 Gastro-esophageal reflux disease without esophagitis
CPT/HCPCS: 36415; 76705; 80053; 81001; 82150; 82550; 82553; 83690; 84484; 85025; 93005; 99284; C9113; J2270; J2405

== ENCOUNTER 2020-04-30 10:07 | Inpatient (IN) | payer MEDICARE, OTHER ==
[~2020-04-30] VITALS: Ht 152.4 cm; Wt 72.7 kg
[2020-04-30 10:43] LABS: BASOPHILS % 0.5 % (0.0-1.0); EOSINOPHILS # (AUTO) 0.1 (0.0-0.4); EOSINOPHILS % 1.5 % (0.0-6.0); HEMATOCRIT 35.9 % (34.2-44.1); HEMOGLOBIN 12.2 g/dL (12.0-16.0); LYMPHOCYTES # (AUTO) 1.2 (1.0-3.2); LYMPHOCYTES % 18.6 % (18.0-39.1); MEAN CORPUSCULAR HEMOGLOBIN 27.8 pg (28-32); MEAN CORPUSCULAR VOLUME 81.8 fL (81-99); MONOCYTES # (AUTO) 0.5 (0.2-0.8); MONOCYTES % 7.4 % (4.4-11.3); NEUTROPHILS # (AUTO) 4.4 (2.1-6.9); NEUTROPHILS % 71.7 % (38.7-80.0); PLATELET COUNT 366 x10e3/uL (140-360); RED BLOOD COUNT 4.39 x10e6/uL (3.6-5.1); RED CELL DISTRIBUTION WIDTH 12.5 % (11.7-14.4)
[2020-04-30 11:01] LABS: ALANINE AMINOTRANSFERASE 16 IU/L (0-55); ALBUMIN 4.1 g/dL (3.5-5.0); ALBUMIN/GLOBULIN RATIO 1.1 (0.8-2.0); ALKALINE PHOSPHATASE 91 IU/L (40-150); ANION GAP 17.7 mmol/L (8-16); BLOOD UREA NITROGEN 6 mg/dL (7-26); BUN/CREATININE RATIO 8 (6-25); CALCIUM 9.4 mg/dL (8.4-10.2); CARBON DIOXIDE 23 mmol/L (22-29); CHLORIDE 88 mmol/L (98-107); CREATINE KINASE 317 IU/L (29-168); EST GLOMERULAR FILTRATION RATE > 60 ML/MIN (60-); GLUCOSE 116 mg/dL (74-118); POTASSIUM 3.7 mmol/L (3.5-5.1); SODIUM 125 mmol/L (136-145)
[2020-04-30] MEDS ORDERED: IOPAMIDOL 370 MG/ML 200 ML INFUS..BTL INJ ONE (11:21)
[2020-04-30] MEDS ORDERED: SODIUM CHLORIDE 0.9% 50ML 50 ML ONE (11:21)
--- NOTE | 2020-04-30 11:24 | Emergency Department Note ---
History of Present Illnes History of Present Illness Chief Complaint: Abdominal Complaints History of Present Illness This is a 80 year old female arrives to the ED with continued complaints of diarrhea. Also complains of generalized weakness and malaise with constant abdominal pain. Daughter states patient is on Bactrim but has not provided any relief. Historian: Patient, Family Member Arrival Mode: Car Onset (how long ago): week(s) Duration (how long): week(s) Timing of current episode: constant Progression: worsening Chronicity: new Relieving factors: none Exacerbating factors: none Past Medical/Family History Physician Review I have reviewed the patient's past medical and family history. Any updates have been documented here. Past Medical History Recent Fever: No Clinical Suspicion of Infectio: No New/Unexplained Change in Ment: No Past Medical History: Hypertension, Diabetes, GERD, Hyperlipedemia Past Surgical History: Hysterectomy Social History Smoking Cessation: Never Smoker Counseling Performed: No Alcohol Use: None Any Illegal Drug Use: No Physically hurt or threatened: No Other Any Pre-Existing Lines (PICC,: No Review of Systems Review of Systems Constitutional: Reports as per HPI, Reports malaise, Reports weakness EENTM: Reports no symptoms Cardiovascular: Reports no symptoms Respiratory: Reports no symptoms Gastrointestinal: Reports as per HPI, Reports diarrhea Genitourinary: Reports no symptoms Musculoskeletal: Reports no symptoms Integumentary: Reports no symptoms Neurological: Reports no symptoms Psychological: Reports no symptoms Endocrine: Reports no symptoms Hematological/Lymphatic: Reports no symptoms Physical Exam Related Data Allergies: Coded Allergies: Penicillins (Verified Allergy, Intermediate, 03/31/20) Triage Vital Signs Vital Signs Date Time Temp Pulse Resp B/P (MAP) Pulse Ox O2 Delivery O2 Flow Rate FiO2 04/30/20 10:17 98.5 78 18 156/71 97 Room Air Vital signs reviewed: Yes Physical Exam CONSTITUTIONAL Constitutional: Present well-developed, Present well-nourished HENT HENT: Present normocephalic, Present atraumatic, Present oropharynx clear/moist, Present nose normal HENT L/R: Present left ext ear normal, Present right ext ear normal EYES Eyes: Reports PERRL, Reports conjunctivae normal NECK Neck: Present ROM normal PULMONARY Pulmonary: Present effort normal, Present breath sounds normal CARDIOVASCULAR Cardiovascular: Present regular rhythm, Present heart sounds normal, Present capillary refill normal, Present normal rate GASTROINTESTINAL Abdominal: Present soft, Present nontender, Present bowel sounds normal GENITOURINARY Genitourinary: Present exam deferred SKIN Skin: Present warm, Present dry MUSCULOSKELETAL Musculoskeletal: Present ROM normal NEUROLOGICAL Neurological: Present alert, Present oriented x 3, Present no gross motor or sensory deficits PSYCHOLOGICAL Psychological: Present mood/affect normal, Present judgement normal Results Laboratory Result Diagram: 04/30/20 1024 04/30/20 1024 Laboratory Laboratory Tests Test 04/30/20 10:24 White Blood Count 6.18 x10e3/uL (4.8-10.8) Red Blood Count 4.39 x10e6/uL (3.6-5.1) Hemoglobin 12.2 g/dL (12.0-16.0) Hematocrit 35.9 % (34.2-44.1) Mean Corpuscular Volume 81.8 fL (81-99) Mean Corpuscular Hemoglobin 27.8 pg (28-32) Mean Corpuscular Hemoglobin Concent 34.0 g/dL (31-35) Red Cell Distribution Width 12.5 % (11.7-14.4) Platelet Count 366 x10e3/uL (140-360) Neutrophils (%) (Auto) 71.7 % (38.7-80.0) Lymphocytes (%) (Auto) 18.6 % (18.0-39.1) Monocytes (%) (Auto) 7.4 % (4.4-11.3) Eosinophils (%) (Auto) 1.5 % (0.0-6.0) Basophils (%) (Auto) 0.5 % (0.0-1.0) Neutrophils # (Auto) 4.4 (2.1-6.9) Lymphocytes # (Auto) 1.2 (1.0-3.2) Monocytes # (Auto) 0.5 (0.2-0.8) Eosinophils # (Auto) 0.1 (0.0-0.4) Basophils # (Auto) 0.0 (0.0-0.1) Absolute Immature Granulocyte (auto 0.02 x10e3/uL (0-0.1) Sodium Level 125 mmol/L (136-145) Potassium Level 3.7 mmol/L (3.5-5.1) Chloride Level 88 mmol/L (98-107) Carbon Dioxide Level 23 mmol/L (22-29) Anion Gap 17.7 mmol/L (8-16) Blood Urea Nitrogen 6 mg/dL (7-26) Creatinine 0.80 mg/dL (0.57-1.11) Estimat Glomerular Filtration Rate > 60 ML/MIN (60-) BUN/Creatinine Ratio 8 (6-25) Glucose Level 116 mg/dL (74-118) Calcium Level 9.4 mg/dL (8.4-10.2) Total Bilirubin 0.5 mg/dL (0.2-1.2) Aspartate Amino Transf (AST/SGOT) 20 IU/L (5-34) Alanine Aminotransferase (ALT/SGPT) 16 IU/L (0-55) Alkaline Phosphatase 91 IU/L (40-150) Creatine Kinase 317 IU/L (29-168) Creatine Kinase MB 6.90 ng/mL (0-5.0) Troponin I < 0.001 ng/mL (0-0.300) Total Protein 7.9 g/dL (6.5-8.1) Albumin 4.1 g/dL (3.5-5.0) Globulin 3.8 g/dL (2.3-3.5) Albumin/Globulin Ratio 1.1 (0.8-2.0) Lab results reviewed: Yes Imaging Imaging results reviewed: Yes Impressions IMPRESSION: No acute findings in the abdomen or pelvis. Diffuse hepatic steatosis. Diverticulosis without CT evidence of diverticulitis. Signed by: Ca Coppola MD on 04/30/2020 11:53 AM Assessment & Plan Medical Decision Making MDM 80-year-old female arrives to the ED with continued complaints of diarrhea for several weeks. Patient noted mild hyponatremia. Patient admitted for GI evaluation and fluid resuscitation. Dr. Lozano consultative at Dr. Denton's request. Assessment & Plan Final Impression: (1) Hyponatremia (2) Diarrhea (3) Abdominal pain Depart Disposition: ADMITTED Last Vital Signs Date Time Temp Pulse Resp B/P (MAP) Pulse Ox O2 Delivery O2 Flow Rate FiO2 04/30/20 10:17 98.5 78 18 156/71 97 Room Air Medications in the ED Sodium Chloride 50 ml @ ud STK-MED ONCE .ROUTE ; Start 04/30/20 at 11:21; Stop 04/30/20 at 11:15; Status DC Iopamidol 74,000 mg STK-MED ONCE INJ ; Start 04/30/20 at 11:21; Stop 04/30/20 at 11:15; Status DC ELBA HOOVER DO Apr 30, 2020 11:24
--- NOTE | 2020-04-30 11:31 | Diagnostic Imaging Report ---
EXAMINATION: CHEST SINGLE (PORTABLE) INDICATION: Diarrhea COMPARISON: None FINDINGS: LINES/TUBES:None LUNGS:The lungs are well-inflated. No focal consolidation or pulmonary edema. PLEURA:No pleural effusion or pneumothorax. MEDIASTINUM:The cardiomediastinal silhouette appears normal in size and shape. Atherosclerotic calcifications of the thoracic aorta. BONES/SOFT TISSUES:No acute osseous injury. ABDOMEN:No free air under the diaphragm. IMPRESSION: No focal pneumonia or pulmonary edema. Signed by: Ca Coppola MD on 04/30/2020 11:28 AM
--- NOTE | 2020-04-30 11:57 | Diagnostic Imaging Report ---
EXAM: CT Abdomen and Pelvis WITH intravenous contrast INDICATION: Diarrhea COMPARISON: None. TECHNIQUE: Abdomen and pelvis were scanned utilizing a multidetector helical scanner from the lung base to the pubic symphysis after administration of IV contrast. Coronal and sagittal reformations were obtained. Routine protocol was performed. Scan was performed during portal venous phase. IV CONTRAST: 100mL of Isovue 370 ORAL CONTRAST: Water RADIATION DOSE: Total DLP: 699 mGy*cm Dose modulation, iterative reconstruction, and/or weight based adjustment of the mA/kV was utilized to reduce the radiation dose to as low as reasonably achievable. FINDINGS: LOWER THORAX: Normal. HEPATOBILIARY: Diffuse hepatic steatosis. No focal liver lesion. No biliary ductal dilation. Unremarkable gallbladder. SPLEEN: No splenomegaly. PANCREAS: No focal masses or ductal dilatation. ADRENALS: No adrenal nodules. KIDNEYS/URETERS: No hydronephrosis, stones, or solid mass lesions. PELVIC ORGANS/BLADDER: Hysterectomy. PERITONEUM / RETROPERITONEUM: No free air or free fluid. LYMPH NODES: No lymphadenopathy. VESSELS: Moderate atherosclerotic calcifications of the nonaneurysmal abdominal aorta and major branches. GI TRACT: Diverticulosis without CT evidence of diverticulitis. No abnormal bowel thickening. No bowel obstruction. Normal appendix. BONES AND SOFT TISSUES: No acute osseous injury. No suspicious lytic or blastic lesions. Mild degenerative changes of the visualized spine. IMPRESSION: No acute findings in the abdomen or pelvis. Diffuse hepatic steatosis. Diverticulosis without CT evidence of diverticulitis. Signed by: Ca Coppola MD on 04/30/2020 11:53 AM
[2020-04-30] MEDS ORDERED: ONDANSETRON HCL INJ 2MG/ML 2ML 2 MG/ML VIAL IV PRN (12:00)
[2020-04-30] MEDS ORDERED: SODIUM CHLORIDE 0.9% 1000ML 1,000 ML IV SCH (12:00)
[2020-04-30] MEDS ORDERED: ACETAMINOPHEN 325 MG TAB PO PRN (12:00)
[2020-04-30 12:06] LABS: CLARITY,URINE CLEAR (CLEAR); COLOR,URINE COLORLESS (YELLOW); LEUKOCYTE ESTERASE ,URINE NEGATIVE (NEGATIVE); NITRITE,URINE NEGATIVE (NEGATIVE)
[2020-04-30 12:07] LABS: BILIRUBIN,URINE NEGATIVE (NEGATIVE); KETONES,URINE NEGATIVE (NEGATIVE); PROTEIN,URINE DIPSTICK NEGATIVE (NEGATIVE); URINE UROBILINOGEN 0.2 mg/dL (0.2 - 1)
[2020-04-30 12:10] LABS: BACTERIA,URINE RARE /HPF; EPITHELIAL CELLS,URINE RARE /LPF; RBC,URINE 0-5 /HPF (0-5)
--- OUTSIDE RECORDS SUMMARY | 2020-04-30 12:13 | XMS REPORT | Clinical Summary ---
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 resent [id number] [place] [address] CALLES MEDICARE OPTIONS CALLES xxxxxxxxxxxx 2015-P [employer] HMO DUAL resent [id number] [employer] [address] [address] [place] [address] (Work)
--- OUTSIDE RECORDS SUMMARY | 2020-04-30 12:14 | XMS REPORT | Continuity of Care Document ---
Author Author [facility] t Organization [facility] Address [address] [place] [address] Phone Unavailable Care Team Providers Care Associate Curator Name Role Phone NO, PCP PCP Unavailable Viviane HOOVER Attphys Unavailable Luciana MCLAUGHLIN Attphys Unavailable Payers Payer Name Policy Type Policy Number Effective Date Expiration Date Viviane Landers Medicare [id number] 2015 00:00:00 [facility] [employer] [id number] 2015 00:00:00 [facility] Problems Condition Name Condition Details Condition Category Status Onset Date Resolution Date Last Treatment Date Treating Clinician Comments Source Mass on back Mass on back Disease Active 2017-10-15 00:00:00 [facility] Neuropathy Problem Active [facility] Gastritis Problem Active [facility] Abdominal pain Problem Active [facility] Allergies, Adverse Reactions, Alerts Allergy Name Allergy Type Status Severity Reaction(s) Onset Date Inacti ve Date Treating Clinician Comments Source Penicillin Allergy to substance Active Moderate 2020-03-31 00:00:0 0 [facility] Penicillin Propensity to adverse reactions to drug Active Rash, Swelling 2016-07-22 00:00:00 Chidi oliveira Social History Social Habit Start Date Stop Date Quantity Comments Source Sex Assigned At [facility] Alcohol intake 2016-07-22 00:00:00 2016-07-22 00:00:00 Current non-drinker of alcohol (finding) [facility] Smoking Status Start Date Stop Date Source Never smoker [facility] Medications Ordered Medication Name Filled Medication Name Start Date Stop Da te Current Medication? Ordering Clinician Indication Dosage Frequency Signature (SIG) Comments Components Source ibuprofen (MOTRIN) 800 mg tablet 2016-07-22 00:00:00 Yes Pain, dental 800mg Take 1 tablet by mouth every 8 hours as needed for Pain (take with food). [facility] gabapentin (NEURONTIN) 300 mg capsule 2011-05-02 00:00:00 Yes Renal colic 300mg Take 1 Cap by mouth daily before a meal. [facility] Vital Signs Vital Name Observation Time Observation Value Comments Source Weight 2020-04-25 21:35:00 168 [lb_av] [facility] BMI (Body Mass Index) 2020-04-25 21:35:00 32.8 kg/m2 [facility] Body Temperature 2020-03-31 01:33:00 98.4 [degF] [facility] Weight 2020-03-30 23:56:00 168 [lb_av] [facility] BMI (Body Mass Index) 2020-03-30 23:56:00 32.8 kg/m2 [facility] Procedures Procedure Date / Time Performed Performing Clinician Bhavin chan US Gallbladder 2020-04-25 00:00:00 [facility] Computed tomography of brain without radiopaque contrast 2020-03 00:00:00 [facility] Plan of Care Planned Activity Planned Date Details Comments Source Future Scheduled Test 2020-06-18 00:00:00 IMM Influenza Seas onal Jun to November (>/= 19 yrs) [code = IMM Influenza Seasonal Jun to November (>/= 19 yrs)] [facility] Future Scheduled Test 2006 00:00:00 IMM Pneumococcal A ge 65 and Up [code = IMM Pneumococcal Age 65 and Up] [facility] Instructions Abdominal Pain - Adult [facility] Instructions [place] Diet - Adult [facility] Instructions Heartburn [facility] Encounters Start Date/Time End Date/Time Encounter Type Admission Type [facility] Care Department Encounter ID Source 2020-04-25 21:49:00 2020-04-25 23:58:00 Departed Emergency Room BAUTISTA MCLAUGHLIN [facility] [id number] [facility] 2020-03-31 01:00:00 2020-03-31 01:45:00 Departed Emergency Room ELBA HOOVER [facility] [id number] [facility] 2019-07-16 10:36:00 2019-07-16 10:36:00 Emergency E [id number] 2018-09-07 20:09:00 2018-09-07 20:09:00 Emergency E [facility] 2017-10-15 17:12:18 2017-10-15 17:12:18 [facility] [id number] [facility] Results Test Description Test Time Test Comments Results Result Comments Source CT ABDOMEN/PELVIS W 2020-04-30 11:51:00 [facility] [address] [address] Patient Name: TRELL BURROWS MR #: [id number] : 1940 Age/Sex: 80/F Req #: [id number] Adm Physician: Ordered by: ELBA HOOVER DO Report #: [id number] Location: ER Room/Bed: Procedure: [id number] CT/CT ABDOMEN/PELVIS W Exam Date: 04/30/20 Exam Time: 1120 REPORT STATUS: Signed EXAM: CT Abdomen and Pelvis WITH intravenous contrast INDICATION: Diarrhea COMPARISON: None. TECHNIQUE: Abdomen and pelvis were scanned utilizing a multidetector helical scanner from the lung base to the pubic symphysis after administration of IV contrast. Coronal and sagittal reformations were obtained. Routine protocol was performed. Scan was performed during portal venous phase. IV CONTRAST: 100mL of Isovue 370 ORAL CONTRAST: Water RADIATION DOSE: Total DLP: 699 mGy*cm Dose modulation, iterative reconstruction, and/or weight based adjustment of the mA/kV was utilized to reduce the radiation dose to as low as reasonably achievable. FINDINGS: LOWER THORAX: Normal. HEPATOBILIARY: Diffuse hepatic steatosis. No focal liver lesion. No biliary ductal dilation. Unremarkable gallbladder. SPLEEN: No splenomegaly. PANCREAS: No focal masses or ductal dilatation. ADRENALS: No adrenal nodules. KIDNEYS/URETERS: No hydronephrosis, stones, or solid mass lesions. PELVIC ORGANS/BLADDER: Hysterectomy. PERITONEUM / RETROPERITONEUM: No free air or free fluid. LYMPH NODES: No lymphadenopathy. VESSELS: Moderate atherosclerotic calcifications of the nonaneurysmal abdominal aorta and major branches. GI TRACT: Diverticulosis without CT evidence of diverticulitis. No abnormal bowel thickening. No bowel obstruction. Normal appendix. BONES AND SOFT TISSUES: No acute osseous injury. No suspicious lytic or blastic lesions. Mild degenerative changes of the visualized spine. IMPRESSION: No acute findings in the abdomen or pelvis. Diffuse hepatic steatosis. Diverticulosis without CT evidence of diverticulitis. Signed by: Joe Weaver MD on 04/30/2020 11:53 AM Dictated By: JOE WEAVER MD 1153 Transcribed By: LUISA on 04/30/20 1153 COPY TO: ELBA HOOVER DO CHEST SINGLE (PORTABLE) 2020-04-30 11:27:[address] [address] Patient Name: TRELL BURROWS MR #: [id number] : 1940 Age/Sex: 80/F Req #: [id number] Adm Physician: Ordered by: ELBA HOOVER DO Report #: [id number] Location: ER Room/Bed: Procedure: [id number] DX/CHEST SINGLE (PORTABLE) Exam Date: 04/30/20 Exam Time: 1041 REPORT STATUS: Signed EXAMINATION: CHEST SINGLE (PORTABLE) INDICATION: Diarrhea COMPARISON: None FINDINGS: LINES/TUBES:None LUNGS:The lungs are well-inflated. No focal consolidation or pulmonary edema. PLEURA:No pleural effusion or pneumothorax. MEDIASTINUM:The cardiomediastinal silhouette appears normal in size and shape. Atherosclerotic calcifications of the thoracic aorta. BONES/SOFT TISSUES:No acute osseous injury. ABDOMEN:No free air under the diaphragm. IMPRESSION: No focal pneumonia or pulmonary edema. Signed by: Joe Weaver MD on 04/30/2020 11:28 AM Dictated By: JOE WEAVER MD 27 Transcribed By: LUISA on 04/30/201127 COPY TO: ELAB HOOVER DO GALLBLADDER 2020-04-25 22:52:[address] [address] Patient Name: TRELL BURROWS MR #: [id number] : 1940 Age/Sex: 79/F Req #: [id number] Adm Physician: Ordered by: BAUTISTA MCLAUGHLIN MD Report #: [id number] Location: ER Room/Bed: Procedure: US/US GALLBLADDER Exam Date: 04/25/20 Exam Time: 8 REPORT STATUS: Signed EXAM: Right Upper Quadrant [...] to overlying bowel gas. Signed by: Skye Palmer MD on 04/25/2020 10:57 PM Dictated By: SKYE PALMER MD 56 Transcribed By: LUISA on 04/25/202256 COPY TO: BAUTISTA MCLAUGHLIN MD Blood leukocytes automated count (number/volume) 2020-04-25 22:05:00 Test Item White Blood Count (test code = 6690-2) 8.91 4.8-10.8 [facility] count (number/volume)2020-04-25 22:05:00* Test Item Value Reference Range Interpretation Comments Red Blood Count (test code = 789-8) 4.43 3.6-5.1 [facility] hemoglobin measurement (moles/volume)2020-04-25 22:05:00* Test Item Value Reference Range Interpretation Comments Hemoglobin (test code = 76596-9) 12.3 12.0-16.0 [facility] HospitalAutomated blood hematocrit (volume fraction)2020-04-25 22:05:00* Test Item Value Reference Range Interpretation Comments Hematocrit (test code = 4544-3) 37.5 34.2-44.1 [facility] HospitalAutomated erythrocyte mean corpuscular sucwmn4774-36-58 22:05:00* Test Item Value Reference Range Interpretation Comments Mean Corpuscular Volume (test code = 787-2) 84.7 81-99 [facility] HospitalAutomated erythrocyte mean corpuscular hemoglobin (mass per erythrocyte)2020-04-25 22:05:00* Test Item Value Reference Range Interpretation Comments Mean Corpuscular Hemoglobin (test code = 785-6) 27.8 28-32 [facility] HospitalAutomated erythrocyte mean corpuscular hemoglobin concentration measurement (mass/volume)2020-04-25 22:05:00* Test Item Value Reference Range Interpretation Comments Mean Corpuscular Hemoglobin Concent (test code = 786-4) 32.8 31-35 [facility] HospitalRDW EqoFz-Noh3877-34-08 22:05:00* Test Item Value Reference Range Interpretation Comments Red Cell Distribution Width (test code = 64665-8) 13.3 11.7 -14.4 [facility] HospitalAutomated blood platelet count (count/volume)2020-04-25 22:05:00* Test Item Value Reference Range Interpretation Comments Platelet Count (test code = 777-3) 364 140-360 [facility] HospitalAutcarolinas continuecare hospital [facility] pinevilleed blood segmented neutrophil count as percentage of total ymidfkjsyo5221-76-91 22:05:00* Test Item Value Reference Range Interpretation Comments Neutrophils (%) (Auto) (test code = 55124-5) 63.6 38.7-80.0 [facility] HospitalAutomated blood lymphocyte count as percentage ot total fogmbyrzyq3132-99-22 22:05:00* Test Item Value Reference Range Interpretation Comments Lymphocytes (%) (Auto) (test code = 736-9) 23.6 18.0-39.1 [facility] HospitalAutomated blood monocyte count as percentage of total xyrcwrmsjo9511-01-53 22:05:00* Test Item Value Reference Range Interpretation Comments Monocytes (%) (Auto) (test code = 5905-5) 7.4 4.4-11.3 [facility] HospitalAutomated blood eosinophil count as percentage of total cyotszoyzp2522-76-25 22:05:00* Test Item Value Reference Range Interpretation Comments Eosinophils (%) (Auto) (test code = 713-8) 4.3 0.0-6.0 [facility] HospitalAutomated blood basophil count as percentage of total xlsrkmwohj9262-60-63 22:05:00* Test Item Value Reference Range Interpretation Comments Basophils (%) (Auto) (test code = 706-2) 0.9 0.0-1.0 [facility] HospitalFluoroscopic procedure less than one hour wzjfjctx0832-65-71 22:05:00* Test Item Value Reference Range Interpretation Comments IM GRANULOCYTES % (test code = IM GRANULOCYTES %) 0.2 0.0- 1.0 [facility] HospitalAutomated blood neutrophil count 2020-04-25 22:05:00* Test Item Value Reference Range Interpretation Comments Neutrophils # (Auto) (test code = 751-8) 5.7 2.1-6.9 [facility] HospitalBlood lymphocytes count (number/volume) 2020-04-25 22:05:00* Test Item Value Reference Range Interpretation Comments Lymphocytes # (Auto) (test code = 57450-9) 2.1 1.0-3.2 [facility] HospitalBlood monocytes automated count (number/volume)2020-04-25 22:05:00* Test Item Value Reference Range Interpretation Comments Monocytes # (Auto) (test code = 742-7) 0.7 0.2-0.8 [facility] HospitalAutomated blood eosinophil count 2020-04-25 22:05:00* Test Item Value Reference Range Interpretation Comments Eosinophils # (Auto) (test code = 711-2) 0.4 0.0-0.4 [facility] HospitalAutomated blood basophil count (count/volume)2020-04-25 22:05:00* Test Item Value Reference Range Interpretation Comments Basophils # (Auto) (test code = 704-7) 0.1 0.0-0.1 [facility] HospitalFluoroscopic procedure less than one hour szjfbnma5291-68-62 22:05:00* Test Item Value Reference Range Interpretation Comments Absolute Immature Granulocyte (auto (cherrie t code = Absolute Immature Granulocyte (auto) 0.02 0-0.1 [facility] sodium measurement (moles/volume)2020-04-25 22:05:00* Test Item Value Reference Range Interpretation Comments Sodium Level (test code = 2951-2) 133 136-145 [facility] plasma potassium measurement (moles/volume)2020-04-25 22:05:00* Test Item Value Reference Range Interpretation Comments Potassium Level (test code = 2823-3) 4.3 3.5-5.1 [facility] or plasma chloride measurement (moles/volume)2020-04-25 22:05:00* Test Item Value Reference Range Interpretation Comments Chloride Level (test code = 2075-0) 98 98-107 [facility] or plasma carbon dioxide, total measurement (moles/volume)2020-04-25 22:05:00* Test Item Value Reference Range Interpretation Comments Carbon Dioxide Level (test code = 2028-9) 24 - [facility] or plasma anion ngw2196-88-09 22:05:00* Test Item Value Reference Range Interpretation Comments Anion Gap (test code = 01555-1) 15.3 8-16 [facility] or plasma urea nitrogen measurement (mass/volume)2020-04-25 22:05:00* Test Item Value Reference Range Interpretation Comments Blood Urea Nitrogen (test code = 3094-0) 12 7-26 [facility] plasma creatinine measurement (mass/volume)2020-04-25 22:05:00* Test Item Value Reference Range Interpretation Comments Creatinine (test code = 2160-0) 1.04 0.57-1.11 [facility] or plasma urea nitrogen/creatinine mass vuemk8092-05-55 22:05:00* Test Item Value Reference Range Interpretation Comments BUN/Creatinine Ratio (test code = 3097-3) 12 6-25 [facility] HospitalEstimated glomerular filtration rate (GFR) zhzcunuxjboka9730-48-04 22:05:00* Test Item Value Reference Range Interpretation Comments Estimat Glomerular Filtration Rate (test code = 981172443) 51 >60 Ranges were taken from the National Kidney Disease Education Program and the [facility] [employer] literature.Reference ranges:60 or greater: Imzuaz26-33 ( for 3 consecutive months): Chronic kidney disease 15 or less: Kidney failureParkland Memorial HospitalGlucose ubzkbxloibm0289-09-27 22:05:00* Test Item Value Reference Range Interpretation Comments Glucose Level (test code = SEW7996) 117 74-118 [facility] or plasma calcium measurement (mass/volume)2020-04-25 22:05:00* Test Item Value Reference Range Interpretation Comments Calcium Level (test code = 41760-2) 9.6 8.4-10.2 [facility] or plasma total bilirubin measurement (mass/volume)2020-04-25 22:05:00* Test Item Value Reference Range Interpretation Comments Total Bilirubin (test code = 1975-2) 0.4 0.2-1.2 [facility] HospitalFluoroscopic procedure less than one hour iphodxxx5937-33-91 22:05:00* Test Item Value Reference Range Interpretation Comments Aspartate Amino Transf (AST/SGOT) (test code = Aspartate Amino Transf (AST/SGOT)) 17 5-34 [facility] or plasma alanine aminotransferase measurement (enzymatic activity/volume)2020-04-25 22:05:00* Test Item Value Reference Range Interpretation Comments Alanine Aminotransferase (ALT/SGPT) (test code = 1742-6) 20 0-55 [facility] or plasma protein measurement (mass/volume)2020-04-25 22:05:00* Test Item Value Reference Range Interpretation Comments Total Protein (test code = 2885-2) 8.1 6.5-8.1 [facility] or plasma albumin measurement (mass/volume)2020-04-25 22:05:00* Test Item Value Reference Range Interpretation Comments Albumin (test code = 1751-7) 4.2 3.5-5.0 [facility] HospitalPlasma globulin measurement (mass/volume) 2020-04-25 22:05:00* Test Item Value Reference Range Interpretation Comments Globulin (test code = 08933-3) 3.9 2.3-3.5 [facility] or plasma albumin/globulin mass totse3312-73-96 22:05:00* Test Item Value Reference Range Interpretation Comments Albumin/Globulin Ratio (test code = 1759-0) 1.1 0.8-2.0 [facility] or plasma alkaline phosphatase measurement (enzymatic activity/volume)2020-04-25 22:05:00* Test Item Value Reference Range Interpretation Comments Alkaline Phosphatase (test code = 6768-6) 97 40-150 [facility] or plasma creatine kinase measurement (enzymatic activity/volume)2020-04-25 22:05:00* Test Item Value Reference Range Interpretation Comments Creatine Kinase (test code = 2157-6) 223 29-168 [facility] or plasma creatine kinase MB measurement (mass/volume)2020-04-25 22:05:00* Test Item Value Reference Range Interpretation Comments Creatine Kinase MB (test code = 32973-5) 5.50 0-5.0 [facility] HospitalTroponin I measurement by highly sensitive enzyme uziwbhdsyjm9486-66-34 22:05:00* Test Item Value Reference Range Interpretation Comments Troponin I (test code = 91062-3) < 0.001 0-0.300 [facility] or plasma amylase measurement (enzymatic activity/volume)2020-04-25 22:05:00* Test Item Value Reference Range Interpretation Comments Amylase Level (test code = 1798-8) 133 25-125 [facility] or plasma lipase measurement (enzymatic activity/volume)2020-04-25 22:05:00* Test Item Value Reference Range Interpretation Comments Lipase (test code = 3040-3) 24 8-78 [facility] HospitalUrine color woefujalpsjtp0988-97-67 21:49:00* Test Item Value Reference Range Interpretation Comments Urine Color (test code = 5778-6) YELLOW YELLOW [facility] HospitalUrine rblnnqb6674-13-12 21:49:00* Test Item Value Reference Range Interpretation Comments Urine Clarity (test code = 91255-8) SL CLOUDY CLEAR [facility]manpecific gravity of Urine by Test strip 2020-04-25 21:49:00* Test Item Value Reference Range Interpretation Comments Urine Specific [place] (test code = 5811-5) 1.010 1.010-1.02 5 [facility] HospitalUrine pH measurement by automated test ilqfl9357-98-67 21:49:00* Test Item Value Reference Range Interpretation Comments Urine pH (test code = 80056-6) 5.5 5-7 [facility] HospitalUrine leukocyte esterase detection by avondeff0374-94-13 21:49:00* Test Item Value Reference Range Interpretation Comments Urine Leukocyte Esterase (test code = 5799-2) NEGATIVE NEGATIVE [facility] HospitalUrine nitrite mcgpcgkpa3627-97-22 21:49:00* Test Item Value Reference Range Interpretation Comments Urine Nitrite (test code = 49844-3) NEGATIVE NEGATIVE [facility] HospitalUrine protein measurement by test strip (mass/volume)2020-04-25 21:49:00* Test Item Value Reference Range Interpretation Comments Urine Protein (test code = 5804-0) TRACE NEGATIVE [facility] HospitalUrine glucose ecblrtnit3968-80-86 21:49:00* Test Item Value Reference Range Interpretation Comments Urine Glucose (UA) (test code = 2349-9) NEGATIVE NEGATIVE [facility] HospitalUrine ketones detection by automated test lwaef1177-68-31 21:49:00* Test Item Value Reference Range Interpretation Comments Urine Ketones (test code = 13593-9) NEGATIVE NEGATIVE [facility] HospitalUrine urobilinogen measurement by test strip (mass/volume)2020-04-25 21:49:00* Test Item Value Reference Range Interpretation Comments Urine Urobilinogen (test code = 35014-0) 0.2 0.2-1 [facility] HospitalUrine total bilirubin measurement (mass/volume)2020-04-25 21:49:00* Test Item Value Reference Range Interpretation Comments Urine Bilirubin (test code = 1978-6) NEGATIVE NEGATIVE [facility] HospitalUrine erythrocytes sakjssicc4317-54-06 21:49:00* Test Item Value Reference Range Interpretation Comments Urine Blood (test code = 70485-3) MODERATE NEGATIVE [facility] HospitalAutomated urine sediment leukocyte count by microscopy (number/high power field)2020-04-25 21:49:00* Test Item Value Reference Range Interpretation Comments Urine WBC (test code = 5821-4) 0-5 0-5 [facility] HospitalErythrocytes detection in urine sediment by light iizghxrust9897-66-03 21:49:00* Test Item Value Reference Range Interpretation Comments Urine RBC (test code = 19325-2) 6-10 0-5 [facility] HospitalBacteria detection in urine sediment by light onuhgqvrlf1048-27-39 21:49:00* Test Item Value Reference Range Interpretation Comments Urine Bacteria (test code = 06775-6) FEW NONE [facility] HospitalEpithelial cells detection in urine sediment by light kiwivcluaz0290-65-14 21:49:00* Test Item Value Reference Range Interpretation Comments Urine Epithelial Cells (test code = 70744-6) FEW NONE [facility] HospitalMucus detection in urine sediment by light wlatqnviyv0487-26-94 21:49:00* Test Item Value Reference Range Interpretation Comments Urine Mucus (test code = 8247-9) FEW RARE [facility] HospitalCT BRAIN BI3646-30-09 00:53:00 [facility] [address] [place] [address] Patient Name: TRELL BURROWS MR #: [id number] : 1940 Age/Sex: 79/F Req #: [id number] Adm Physician: Ordered by: ELBA HOOVER DO Report #: [id number] Location: ER Room/Bed: Procedure: [id number] CT/CT BRAIN W O Exam Date: 03/31/20 Exam Time: 0030 REPORT STATUS: Signed History:left weakness Comparison studies:None Technique: Axial images were obtained from the sk ull base to the vertex. Coronal and sagittal images reconstructed from the axi al data. Intravenous contrast: None Findings: Scalp/skull: No abnorm alities. Extra-axial spaces: No masses. No fluid collections. Brain s ulci: Mildly prominent. Ventricles: Mild compensatory dilatation. No hydroceph alus. Parenchyma: Subtle bilateral supratentorial white matter hypodensi ties are small vessel microvascular changes. A 4mm dystrophic calcification in the left putamen is not associated with surrounding edema. No masses, hem orrhage, acute or chronic vascular insults. Sellar/suprasellar region: No a bnormalities. Craniocervical junction: Patent foramen magnum. No Chiari one m alformation. Incidental findings: Subtle atherosclerotic calcifications i n the carotid siphons Non obstructing retention cyst in the left sphenoid sin us. Impression: 1. No acute abnormalities. 2. Specifically, no ac augustine vascular insults or acute hemorrhage. Chronic findings: * Mild gener alized volume loss. * Mild parietal white matter microvascular ischemic newman es. Signed by: Dr. Yasir Harrell M.D. on 03/31/2020 1:08 AM Dict ated By: YASIR HARRELL MD 7 COPY TO: LUCITA HOOVER ICA, DO Blood leukocytes automated count (number/volume)2020-03-31 00:02:00* Test Item Value Reference Range Interpretation Comments White Blood Count (test code = 6690-2) 10.13 4.8-10.8 [facility] HospitalBlood erythrocytes automated count (number/volume)2020-03-31 00:02:00* Test Item Value Reference Range Interpretation Comments Red Blood Count (test code = 789-8) 4.00 3.6-5.1 [facility] HospitalBlood hemoglobin measurement (moles/volume)2020-03-31 00:02:00* Test Item Value Reference Range Interpretation Comments Hemoglobin (test code = 66234-1) 11.1 12.0-16.0 [facility] HospitalAutomated blood hematocrit (volume fraction)2020-03-31 00:02:00* Test Item Value Reference Range Interpretation Comments Hematocrit (test code = 4544-3) 34.2 34.2-44.1 [facility] HospitalAutomated erythrocyte mean corpuscular eshhxc0985-86-62 00:02:00* Test Item Value Reference Range Interpretation Comments Mean Corpuscular Volume (test code = 787-2) 85.5 81-99 [facility] HospitalAutomated erythrocyte mean corpuscular hemoglobin (mass per erythrocyte)2020-03-31 00:02:00* Test Item Value Reference Range Interpretation Comments Mean Corpuscular Hemoglobin (test code = 785-6) 27.8 28-32 [facility] HospitalAutcarolinas continuecare hospital at pinevilleed erythrocyte mean corpuscular hemoglobin concentration measurement (mass/volume)2020-03-31 00:02:00* Test Item Value Reference Range Interpretation Comments Mean Corpuscular Hemoglobin Concent (test code = 786-4) 32.5 31-35 [facility]RDW IpfGw-Nwp8751-84-14 00:02:00* Test Item Value Reference Range Interpretation Comments Red Cell Distribution Width (test code = 69086-5) 13.3 11.7 -14.4 [facility] HospitalAutcarolin[facility]ed blood platelet count (count/volume)2020-03-31 00:02:00* Test Item Value Reference Range Interpretation Comments Platelet Count (test code = 777-3) 344 140-360 [facility] HospitalAutomated blood segmented neutrophil count as percentage of total duhjookrdp3991-64-29 00:02:00* Test Item Value Reference Range Interpretation Comments Neutrophils (%) (Auto) (test code = 82833-9) 61.0 38.7-80.0 [facility] HospitalAutomated blood lymphocyte count as percentage ot total prfdzpjlcv9158-17-13 00:02:00* Test Item Value Reference Range Interpretation Comments Lymphocytes (%) (Auto) (test code = 736-9) 24.5 18.0-39.1 [facility] HospitalAutomated blood monocyte count as percentage of total mqkazydnfi6812-53-33 00:02:00* Test Item Value Reference Range Interpretation Comments Monocytes (%) (Auto) (test code = 5905-5) 5.7 4.4-11.3 [facility] HospitalAutomated blood eosinophil count as percentage of total ouchqvgeyt5992-13-28 00:02:00* Test Item Value Reference Range Interpretation Comments Eosinophils (%) (Auto) (test code = 713-8) 8.1 0.0-6.0 [facility] HospitalAutomated blood basophil count as percentage of total pejwdqlhmc8349-35-75 00:02:00* Test Item Value Reference Range Interpretation Comments Basophils (%) (Auto) (test code = 706-2) 0.4 0.0-1.0 [facility] HospitalFluoroscopic procedure less than one hour knndgcjp0055-77-29 00:02:00* Test Item Value Reference Range Interpretation Comments IM GRANULOCYTES % (test code = IM GRANULOCYTES %) 0.3 0.0- 1.0 [facility] HospitalAutomated blood neutrophil count 2020-03-31 00:02:00* Test Item Value Reference Range Interpretation Comments Neutrophils # (Auto) (test code = 751-8) 6.2 2.1-6.9 [facility] HospitalBlood lymphocytes count (number/volume) 2020-03-31 00:02:00* Test Item Value Reference Range Interpretation Comments Lymphocytes # (Auto) (test code = 29528-0) 2.5 1.0-3.2 [facility] HospitalBlood monocytes automated count (number/volume)2020-03-31 00:02:00* Test Item Value Reference Range Interpretation Comments Monocytes # (Auto) (test code = 742-7) 0.6 0.2-0.8 [facility] HospitalAutomated blood eosinophil count 2020-03-31 00:02:00* Test Item Value Reference Range Interpretation Comments Eosinophils # (Auto) (test code = 711-2) 0.8 0.0-0.4 [facility] HospitalAutomated blood basophil count (count/volume)2020-03-31 00:02:00* Test Item Value Reference Range Interpretation Comments Basophils # (Auto) (test code = 704-7) 0.0 0.0-0.1 [facility] HospitalFluoroscopic procedure less than one hour ylzmlxyt5666-64-77 00:02:00* Test Item Value Reference Range Interpretation Comments Absolute Immature Granulocyte (auto (cherrie t code = Absolute Immature Granulocyte (auto) 0.03 0-0.1 [facility] sodium [facility] (moles/volume)2020-03-31 00:02:00* Test Item Value Reference Range Interpretation Comments Sodium Level (test code = 2951-2) 137 136-145 [facility] plasma potassium measurement (moles/volume)2020-03-31 00:02:00* Test Item Value Reference Range Interpretation Comments Potassium Level (test code = 2823-3) 4.3 3.5-5.1 [facility] plasma chloride measurement (moles/volume)2020-03-31 00:02:00* Test Item Value Reference Range Interpretation Comments Chloride Level (test code = 2075-0) 100 98-107 [facility] plasma carbon dioxide, total measurement (moles/volume)2020-03-31 00:02:00* Test Item Value Reference Range Interpretation Comments Carbon Dioxide Level (test code = 2028-9) 25 22-29 [facility] plasma anion tqz4273-67-08 00:02:00* Test Item Value Reference Range Interpretation Comments Anion Gap (test code = 55088-4) 16.3 8-16 [facility] urea nitrogen measurement (mass/volume)2020-03-31 00:02:00* Test Item Value Reference Range Interpretation Comments Blood Urea Nitrogen (test code = 3094-0) 15 7-26 [facility] creatinine measurement (mass/volume)2020-03-31 00:02:00* Test Item Value Reference Range Interpretation Comments Creatinine (test code = 2160-0) 0.80 0.57-1.11 [facility] urea nitrogen/creatinine mass qzgqp8397-33-67 00:02:00* Test Item Value Reference Range Interpretation Comments BUN/Creatinine Ratio (test code = 3097-3) 19 6-25 [facility] HospitalEstimated glomerular filtration rate (GFR) bsbxmajoiagzw8201-72-21 00:02:00* Test Item Value Reference Range Interpretation Comments Estimat Glomerular Filtration Rate (test code = 565558366) > 60 >60 Ranges were taken from the National Kidney Disease Education Program and the [facility] Foundation literature.Reference ranges:60 or greater: Okklgv30-35 ( for 3 consecutive months): Chronic kidney disease 15 or less: Kidney failureParkland Memorial HospitalGlucose imbzmwopuih2093-66-97 00:02:00* Test Item Value Reference Range Interpretation Comments Glucose Level (test code = PSF6847) 110 74-118 [facility] calcium measurement (mass/volume)2020-03-31 00:02:00* Test Item Value Reference Range Interpretation Comments Calcium Level (test code = 17700-2) 9.5 8.4-10.2 [facility] total bilirubin measurement (mass/volume)2020-03-31 00:02:00* Test Item Value Reference Range Interpretation Comments Total Bilirubin (test code = 1975-2) 0.2 0.2-1.2 [facility] HospitalFluoroscopic procedure less than one hour scfmfhad6826-21-15 00:02:00* Test Item Value Reference Range Interpretation Comments Aspartate Amino Transf (AST/SGOT) (test code = Aspartate Amino Transf (AST/SGOT)) 12 5-34 [facility] alanine aminotransferase measurement (enzymatic activity/volume)2020-03-31 00:02:00* Test Item Value Reference Range Interpretation Comments Alanine Aminotransferase (ALT/SGPT) (test code = 1742-6) 15 0-55 [facility] plasma protein measurement (mass/volume)2020-03-31 00:02:00* Test Item Value Reference Range Interpretation Comments Total Protein (test code = 2885-2) 7.5 6.5-8.1 [facility] plasma albumin measurement (mass/volume)2020-03-31 00:02:00* Test Item Value Reference Range Interpretation Comments Albumin (test code = 1751-7) 3.8 3.5-5.0 [facility] HospitalPlasma globulin measurement (mass/volume) 2020-03-31 00:02:00* Test Item Value Reference Range Interpretation Comments Globulin (test code = 71276-6) 3.7 2.3-3.5 [facility] albumin/globulin mass xswfk1032-83-59 00:02:00* Test Item Value Reference Range Interpretation Comments Albumin/Globulin Ratio (test code = 1759-0) 1.0 0.8-2.0 [facility] or plasma alkaline phosphatase measurement (enzymatic activity/volume)2020-03-31 00:02:00* Test Item Value Reference Range Interpretation Comments Alkaline Phosphatase (test code = 6768-6) 83 40-150 [facility] plasma creatine kinase measurement (enzymatic activity/volume)2020-03-31 00:02:00* Test Item Value Reference Range Interpretation Comments Creatine Kinase (test code = 2157-6) 105 29-168 [facility] plasma creatine kinase MB measurement (mass/volume)2020-03-31 00:02:00* Test Item Value Reference Range Interpretation Comments Creatine Kinase MB (test code = 02670-7) 2.20 0-5.0 [facility] HospitalTroponin I measurement by highly sensitive enzyme fyfsawuwseo6964-53-32 00:02:00* Test Item Value Reference Range Interpretation Comments Troponin I (test code = 16772-7) < 0.001 0-0.300 [facility]
--- OUTSIDE RECORDS SUMMARY | 2020-04-30 13:17 | XMS REPORT | Clinical Summary ---
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 PART A & B resent [id number] [place] [address] CALLES MEDICARE OPTIONS CALLES xxxxxxxxxxxx 2015-P [employer] HMO DUAL resent [id number] OPTION MMP [address] [address] [place] [address] (Work)
--- OUTSIDE RECORDS SUMMARY | 2020-04-30 13:18 | XMS REPORT | Continuity of Care Document ---
Author Author [facility] t Organization [facility] Address [address] [place] [address] Phone Unavailable Care Team Providers Care Fire Protection Inspector Name Role Phone NO, PCP PCP Unavailable Viviane HOOVER Attphys Unavailable Luciana MCLAUGHLIN Attphys Unavailable Payers Payer Name Policy Type Policy Number Effective Date Expiration Date Viviane Landers Medicare [id number] 2015 00:00:00 [facility] [employer] [id number] 2015 00:00:00 [facility] Problems Condition Name Condition Details Condition Category Status Onset Date Resolution Date Last Treatment Date Treating Clinician Comments Source Mass on back Mass on back Disease Active 2017-10-15 00:00:00 [facility] Neuropathy Problem Active [facility] Gastritis Problem Active [facility] Abdominal pain Problem Active [facility] Allergies, Adverse Reactions, Alerts Allergy Name Allergy Type Status Severity Reaction(s) Onset Date Inacti ve Date Treating Clinician Comments Source Penicillin Allergy to substance Active Moderate 2020-03-31 00:00:0 0 [facility] Penicillin Propensity to adverse reactions to drug Active Rash, Swelling 2016-07-22 00:00:00 Chidi oliveira Social History Social Habit Start Date Stop Date Quantity Comments Source Sex Assigned At [facility] Alcohol intake 2016-07-22 00:00:00 2016-07-22 00:00:00 Current non-drinker of alcohol (finding) [facility] Smoking Status Start Date Stop Date Source Never smoker [facility] Medications Ordered Medication Name Filled Medication Name Start Date Stop Da te Current Medication? Ordering Clinician Indication Dosage Frequency Signature (SIG) Comments Components Source ibuprofen (MOTRIN) 800 mg tablet 2016-07-22 00:00:00 Yes Pain, dental 800mg Take 1 tablet by mouth every 8 hours as needed for Pain (take with food). [facility] gabapentin (NEURONTIN) 300 mg capsule 2011-05-02 00:00:00 Yes Renal colic 300mg Take 1 Cap by mouth daily before a meal. [facility] Vital Signs Vital Name Observation Time Observation Value Comments Source Weight 2020-04-25 21:35:00 168 [lb_av] [facility] BMI (Body Mass Index) 2020-04-25 21:35:00 32.8 kg/m2 [facility] Body Temperature 2020-03-31 01:33:00 98.4 [degF] [facility] Weight 2020-03-30 23:56:00 168 [lb_av] [facility] BMI (Body Mass Index) 2020-03-30 23:56:00 32.8 kg/m2 [facility] Procedures Procedure Date / Time Performed Performing Clinician Bhavin chan US Gallbladder 2020-04-25 00:00:00 [facility] Computed tomography of brain without radiopaque contrast 2020-03 00:00:00 [facility] Plan of Care Planned Activity Planned Date Details Comments Source Future Scheduled Test 2020-06-18 00:00:00 IMM Influenza Seas onal Jun to November (>/= 19 yrs) [code = IMM Influenza Seasonal Jun to November (>/= 19 yrs)] [facility] Future Scheduled Test 2006 00:00:00 IMM Pneumococcal A ge 65 and Up [code = IMM Pneumococcal Age 65 and Up] [facility] Instructions Abdominal Pain - Adult [facility] Instructions [place] Diet - Adult [facility] Instructions Heartburn [facility] Encounters Start Date/Time End Date/Time Encounter Type Admission Type Attendi [facility] Facility Care Department Encounter ID Source 2020-04-25 21:49:00 2020-04-25 23:58:00 Departed Emergency Room BAUTISTA MCLAUGHLIN [facility] [id number] [facility] 2020-03-31 01:00:00 2020-03-31 01:45:00 Departed Emergency Room ELBA HOOVER [facility] [id number] [facility] 2019-07-16 10:36:00 2019-07-16 10:36:00 Emergency E [facility] [address] [facility] 2018-09-07 20:09:00 2018-09-07 20:09:00 Emergency E [facility] [address] [facility] 2017-10-15 17:12:18 2017-10-15 17:12:18 [facility] [id number] [facility] Results Test Description Test Time Test Comments Results Result Comments Source CT ABDOMEN/PELVIS W 2020-04-30 11:51:00 [facility] [address] [address] Patient Name: TRELL BURROWS MR #: [id number] : 1940 Age/Sex: 80/F Req #: [id number] Adm Physician: Ordered by: ELBA HOOVER DO Report #: [id number] Location: ER Room/Bed: Procedure: [id number] CT/CT ABDOMEN/PELVIS W Exam Date: 04/30/20 Exam [...] HOOVER DO CHEST SINGLE (PORTABLE) 2020-04-30 11:27:[address] [address] Patient Name: TRELL BURROWS MR #: [id number] : 1940 Age/Sex: 80/F Req #: [id number] Adm Physician: Ordered by: ELBA HOOVER DO Report #: [id number] Location: ER Room/Bed: Procedure: [id number] DX/CHEST SINGLE (PORTABLE) Exam Date: 04/30/20 Exam [...] Transcribed By: LUISA on 04/30/201127 COPY TO: ELBA HOOVER DO GALLBLADDER 2020-04-25 22:52:[address] [address] Patient Name: TRELL BURROWS MR #: [id number] : 1940 Age/Sex: 79/F Req #: [id number] Adm Physician: Ordered by: BAUTISTA MCLAUGHLIN MD Report #: [id number] Location: ER Room/Bed: Procedure: US/US GALLBLADDER Exam [...] Count (test code = 6690-2) 8.91 4.8-10.8 [facility] automated count (number/volume)2020-04-25 22:05:00* Test Item Value Reference Range Interpretation Comments Red Blood Count (test code = 789-8) 4.43 3.6-5.1 [facility] hemoglobin measurement (moles/volume)2020-04-25 22:05:00* Test Item Value Reference Range Interpretation Comments Hemoglobin (test code = 65029-8) 12.3 12.0-16.0 [facility] CenterAutomated blood hematocrit (volume fraction)2020-04-25 22:05:00* Test Item Value Reference Range Interpretation Comments Hematocrit (test code = 4544-3) 37.5 34.2-44.1 [facility] CenterAutomated erythrocyte mean corpuscular tbeyav2985-53-95 22:05:00* Test Item Value Reference Range Interpretation Comments Mean Corpuscular Volume (test code = 787-2) 84.7 81-99 [facility] CenterAutomated erythrocyte mean corpuscular hemoglobin (mass per erythrocyte)2020-04-25 22:05:00* Test Item Value Reference Range Interpretation Comments Mean Corpuscular Hemoglobin (test code = 785-6) 27.8 28-32 [facility] CenterAutomated erythrocyte mean corpuscular hemoglobin concentration measurement (mass/volume)2020-04-25 22:05:00* Test Item Value Reference Range Interpretation Comments Mean Corpuscular Hemoglobin Concent (test code = 786-4) 32.8 31-35 [facility] CenterRDW XutXz-Vwh2365-18-08 22:05:00* Test Item Value Reference Range Interpretation Comments Red Cell Distribution Width (test code = 96869-0) 13.3 11.7 -14.4 [facility] CenterAutomated blood platelet count (count/volume)2020-04-25 22:05:00* Test Item Value Reference Range Interpretation Comments Platelet Count (test code = 777-3) 364 140-360 [facility] CenterAutcritical access hospitaled blood segmented neutrophil count as percentage of total poakaannjh1921-99-19 22:05:00* Test Item Value Reference Range Interpretation Comments Neutrophils (%) (Auto) (test code = 76817-3) 63.6 38.7-80.0 [facility] CenterAutomated blood lymphocyte count as percentage ot total wjdvdklvpz5089-10-12 22:05:00* Test Item Value Reference Range Interpretation Comments Lymphocytes (%) (Auto) (test code = 736-9) 23.6 18.0-39.1 [facility] CenterAutomated blood monocyte count as percentage of total sbwdkrrvbx6578-94-92 22:05:00* Test Item Value Reference Range Interpretation Comments Monocytes (%) (Auto) (test code = 5905-5) 7.4 4.4-11.3 [facility] CenterAutomated blood eosinophil count as percentage of total tnaxbpxepv9232-88-55 22:05:00* Test Item Value Reference Range Interpretation Comments Eosinophils (%) (Auto) (test code = 713-8) 4.3 0.0-6.0 [facility] CenterAutomated blood basophil count as percentage of total cxkxvxvxfm1222-19-74 22:05:00* Test Item Value Reference Range Interpretation Comments Basophils (%) (Auto) (test code = 706-2) 0.9 0.0-1.0 [facility] CenterFluoroscopic procedure less than one hour ddzxmkod1848-49-55 22:05:00* Test Item Value Reference Range Interpretation Comments IM GRANULOCYTES % (test code = IM GRANULOCYTES %) 0.2 0.0- 1.0 [facility] CenterAutomated blood neutrophil count 2020-04-25 22:05:00* Test Item Value Reference Range Interpretation Comments Neutrophils # (Auto) (test code = 751-8) 5.7 2.1-6.9 [facility] CenterBlood lymphocytes count (number/volume) 2020-04-25 22:05:00* Test Item Value Reference Range Interpretation Comments Lymphocytes # (Auto) (test code = 63308-7) 2.1 1.0-3.2 [facility] CenterBlood monocytes automated count (number/volume)2020-04-25 22:05:00* Test Item Value Reference Range Interpretation Comments Monocytes # (Auto) (test code = 742-7) 0.7 0.2-0.8 [facility] CenterAutomated blood eosinophil count 2020-04-25 22:05:00* Test Item Value Reference Range Interpretation Comments Eosinophils # (Auto) (test code = 711-2) 0.4 0.0-0.4 [facility] CenterAutomated blood basophil count (count/volume)2020-04-25 22:05:00* Test Item Value Reference Range Interpretation Comments Basophils # (Auto) (test code = 704-7) 0.1 0.0-0.1 [facility] CenterFluoroscopic procedure less than one hour ubqjqqdw6464-92-30 22:05:00* Test Item Value Reference Range Interpretation Comments Absolute Immature Granulocyte (auto (cherrie t code = Absolute Immature Granulocyte (auto) 0.02 0-0.1 [facility] sodium [facility] (moles/volume)2020-04-25 22:05:00* Test Item Value Reference Range Interpretation Comments Sodium Level (test code = 2951-2) 133 136-145 [facility] potassium measurement (moles/volume)2020-04-25 22:05:00* Test Item Value Reference Range Interpretation Comments Potassium Level (test code = 2823-3) 4.3 3.5-5.1 [facility] chloride measurement (moles/volume)2020-04-25 22:05:00* Test Item Value Reference Range Interpretation Comments Chloride Level (test code = 2075-0) 98 98-107 [facility] carbon dioxide, total measurement (moles/volume)2020-04-25 22:05:00* Test Item Value Reference Range Interpretation Comments Carbon Dioxide Level (test code = 2028-9) 24 - [facility] anion mjw9117-07-05 22:05:00* Test Item Value Reference Range Interpretation Comments Anion Gap (test code = 36405-6) 15.3 8-16 [facility] urea nitrogen measurement (mass/volume)2020-04-25 22:05:00* Test Item Value Reference Range Interpretation Comments Blood Urea Nitrogen (test code = 3094-0) 12 7-26 [facility] creatinine measurement (mass/volume)2020-04-25 22:05:00* Test Item Value Reference Range Interpretation Comments Creatinine (test code = 2160-0) 1.04 0.57-1.11 [facility] urea nitrogen/creatinine mass ctvye3063-31-72 22:05:00* Test Item Value Reference Range Interpretation Comments BUN/Creatinine Ratio (test code = 3097-3) 12 6-25 [facility] CenterEstimated glomerular filtration rate (GFR) llilkrwukhaox6223-34-54 22:05:00* Test Item Value Reference Range Interpretation Comments Estimat Glomerular Filtration Rate (test code = 487208747) 51 >60 Ranges were taken from the National Kidney Disease Education Program and the [facility] literature.Reference ranges:60 or greater: Spdroq15-31 ( for 3 consecutive months): Chronic kidney disease 15 or less: Kidney failureMethodist Mansfield Medical CenterGlucose zqohpzbqfdx0913-21-74 22:05:00* Test Item Value Reference Range Interpretation Comments Glucose Level (test code = BQZ5236) 117 74-118 [facility] calcium measurement (mass/volume)2020-04-25 22:05:00* Test Item Value Reference Range Interpretation Comments Calcium Level (test code = 83067-9) 9.6 8.4-10.2 [facility] total bilirubin measurement (mass/volume)2020-04-25 22:05:00* Test Item Value Reference Range Interpretation Comments Total Bilirubin (test code = 1975-2) 0.4 0.2-1.2 [facility] CenterFluoroscopic procedure less than one hour zvrvcjed5863-57-42 22:05:00* Test Item Value Reference Range Interpretation Comments Aspartate Amino Transf (AST/SGOT) (test code = Aspartate Amino Transf (AST/SGOT)) 17 5-34 [facility]er[facility] alanine aminotransferase measurement (enzymatic activity/volume)2020-04-25 22:05:00* Test Item Value Reference Range Interpretation Comments Alanine Aminotransferase (ALT/SGPT) (test code = 1742-6) 20 0-55 [facility] protein measurement (mass/volume)2020-04-25 22:05:00* Test Item Value Reference Range Interpretation Comments Total Protein (test code = 2885-2) 8.1 6.5-8.1 [facility] albumin measurement (mass/volume)2020-04-25 22:05:00* Test Item Value Reference Range Interpretation Comments Albumin (test code = 1751-7) 4.2 3.5-5.0 [facility] CenterPlasma globulin measurement (mass/volume) 2020-04-25 22:05:00* Test Item Value Reference Range Interpretation Comments Globulin (test code = 75252-3) 3.9 2.3-3.5 [facility] albumin/globulin mass gwaau7167-23-35 22:05:00* Test Item Value Reference Range Interpretation Comments Albumin/Globulin Ratio (test code = 1759-0) 1.1 0.8-2.0 [facility] plasma alkaline phosphatase measurement (enzymatic activity/volume)2020-04-25 22:05:00* Test Item Value Reference Range Interpretation Comments Alkaline Phosphatase (test code = 6768-6) 97 40-150 [facility]er[facility] or plasma creatine kinase measurement (enzymatic activity/volume)2020-04-25 22:05:00* Test Item Value Reference Range Interpretation Comments Creatine Kinase (test code = 2157-6) 223 29-168 [facility]er[facility] plasma creatine kinase MB measurement (mass/volume)2020-04-25 22:05:00* Test Item Value Reference Range Interpretation Comments Creatine Kinase MB (test code = 27562-9) 5.50 0-5.0 [facility] CenterTroponin I measurement by highly sensitive enzyme xokclqbbfyf4643-12-96 22:05:00* Test Item Value Reference Range Interpretation Comments Troponin I (test code = 57341-7) < 0.001 0-0.300 [facility] or plasma amylase measurement (enzymatic activity/volume)2020-04-25 22:05:00* Test Item Value Reference Range Interpretation Comments Amylase Level (test code = 1798-8) 133 25-125 [facility] lipase measurement (enzymatic activity/volume)2020-04-25 22:05:00* Test Item Value Reference Range Interpretation Comments Lipase (test code = 3040-3) 24 8-78 [facility] CenterUrine color ehnkwykgmblrh2785-33-71 21:49:00* Test Item Value Reference Range Interpretation Comments Urine Color (test code = 5778-6) YELLOW YELLOW [facility] CenterUrine ntcnmko1039-65-15 21:49:00* Test Item Value Reference Range Interpretation Comments Urine Clarity (test code = 43586-1) SL CLOUDY CLEAR [facility] Hospitalpecific gravity of Urine by Test strip 2020-04-25 21:49:00* Test Item Value Reference Range Interpretation Comments Urine Specific Index (test code = 5811-5) 1.010 1.010-1.02 5 [facility] CenterUrine pH measurement by automated test ehbix5431-36-13 21:49:00* Test Item Value Reference Range Interpretation Comments Urine pH (test code = 75284-1) 5.5 5-7 [facility] CenterUrine leukocyte esterase detection by mgesjzgt7505-35-30 21:49:00* Test Item Value Reference Range Interpretation Comments Urine Leukocyte Esterase (test code = 5799-2) NEGATIVE NEGATIVE [facility] CenterUrine nitrite irxkhsbkr6830-92-48 21:49:00* Test Item Value Reference Range Interpretation Comments Urine Nitrite (test code = 89077-3) NEGATIVE NEGATIVE [facility] CenterUrine protein measurement by test strip (mass/volume)2020-04-25 21:49:00* Test Item Value Reference Range Interpretation Comments Urine Protein (test code = 5804-0) TRACE NEGATIVE [facility] CenterUrine glucose ivgxnnsww2041-08-86 21:49:00* Test Item Value Reference Range Interpretation Comments Urine Glucose (UA) (test code = 2349-9) NEGATIVE NEGATIVE [facility] CenterUrine ketones detection by automated test jxiqa3834-88-76 21:49:00* Test Item Value Reference Range Interpretation Comments Urine Ketones (test code = 94858-7) NEGATIVE NEGATIVE [facility] CenterUrine urobilinogen measurement by test strip (mass/volume)2020-04-25 21:49:00* Test Item Value Reference Range Interpretation Comments Urine Urobilinogen (test code = 08189-2) 0.2 0.2-1 [facility] CenterUrine total bilirubin measurement (mass/volume)2020-04-25 21:49:00* Test Item Value Reference Range Interpretation Comments Urine Bilirubin (test code = 1978-6) NEGATIVE NEGATIVE [facility] CenterUrine erythrocytes mpvopmlag0229-02-68 21:49:00* Test Item Value Reference Range Interpretation Comments Urine Blood (test code = 23636-4) MODERATE NEGATIVE [facility] CenterAutomated urine sediment leukocyte count by microscopy (number/high power field)2020-04-25 21:49:00* Test Item Value Reference Range Interpretation Comments Urine WBC (test code = 5821-4) 0-5 0-5 [facility] CenterErythrocytes detection in urine sediment by light dnmkxixwke9191-85-00 21:49:00* Test Item Value Reference Range Interpretation Comments Urine RBC (test code = 36027-1) 6-10 0-5 [facility] CenterBacteria detection in urine sediment by light uychtvcbel8044-93-55 21:49:00* Test Item Value Reference Range Interpretation Comments Urine Bacteria (test code = 49345-7) FEW NONE [facility] CenterEpithelial cells detection in urine sediment by light lvsrbabxmm2886-45-90 21:49:00* Test Item Value Reference Range Interpretation Comments Urine Epithelial Cells (test code = 15113-5) FEW NONE [facility] CenterMucus detection in urine sediment by light irfqxcbvay4911-88-26 21:49:00* Test Item Value Reference Range Interpretation Comments Urine Mucus (test code = 8247-9) FEW RARE [facility] CenterCT BRAIN WV0684-60-12 00:53:00 [facility] [address] [place] [address] Patient Name: TRELL BURROWS MR #: [id number] : 1940 Age/Sex: 79/F Req #: [id number] Adm Physician: Ordered by: ELBA HOOVER DO Report #: [id number] Location: ER Room/Bed: Procedure: [id number] CT/CT BRAIN W O Exam Date: 03/31/20 [...] No acute abnormalities. 2. Specifically, no ac [place] vascular insults or acute hemorrhage. Chronic findings: [...] Count (test code = 6690-2) 10.13 4.8-10.8 [facility] CenterBlood erythrocytes automated count (number/volume)2020-03-31 00:02:00* Test Item Value Reference Range Interpretation Comments Red Blood Count (test code = 789-8) 4.00 3.6-5.1 [facility] CenterBlood hemoglobin measurement (moles/volume)2020-03-31 00:02:00* Test Item Value Reference Range Interpretation Comments Hemoglobin (test code = 84378-3) 11.1 12.0-16.0 [facility] CenterAutomated blood hematocrit (volume fraction)2020-03-31 00:02:00* Test Item Value Reference Range Interpretation Comments Hematocrit (test code = 4544-3) 34.2 34.2-44.1 [facility] CenterAutomated erythrocyte mean corpuscular kyncqh0796-03-64 00:02:00* Test Item Value Reference Range Interpretation Comments Mean Corpuscular Volume (test code = 787-2) 85.5 81-99 [facility] CenterAutomated erythrocyte mean corpuscular hemoglobin (mass per erythrocyte)2020-03-31 00:02:00* Test Item Value Reference Range Interpretation Comments Mean Corpuscular Hemoglobin (test code = 785-6) 27.8 28-32 [facility] CenterAutcritical access hospitaled erythrocyte mean corpuscular hemoglobin concentration measurement (mass/volume)2020-03-31 00:02:00* Test Item Value Reference Range Interpretation Comments Mean Corpuscular Hemoglobin Concent (test code = 786-4) 32.5 31-35 [facility] CenterRDW ImoSu-Ion9367-54-14 00:02:00* Test Item Value Reference Range Interpretation Comments Red Cell Distribution Width (test code = 72675-1) 13.3 11.7 -14.4 [facility] CenterAutcritical access hospitaled blood platelet count (count/volume)2020-03-31 00:02:00* Test Item Value Reference Range Interpretation Comments Platelet Count (test code = 777-3) 344 140-360 [facility] CenterAutomated blood segmented neutrophil count as percentage of total yeelhssjrv1603-28-67 00:02:00* Test Item Value Reference Range Interpretation Comments Neutrophils (%) (Auto) (test code = 01667-0) 61.0 38.7-80.0 [facility] CenterAutomated blood lymphocyte count as percentage ot total sgfknoliub2953-21-78 00:02:00* Test Item Value Reference Range Interpretation Comments Lymphocytes (%) (Auto) (test code = 736-9) 24.5 18.0-39.1 [facility] CenterAutomated blood monocyte count as percentage of total wpduvikjwh3430-26-75 00:02:00* Test Item Value Reference Range Interpretation Comments Monocytes (%) (Auto) (test code = 5905-5) 5.7 4.4-11.3 [facility] CenterAutomated blood eosinophil count as percentage of total fvqrqzvuka9381-12-38 00:02:00* Test Item Value Reference Range Interpretation Comments Eosinophils (%) (Auto) (test code = 713-8) 8.1 0.0-6.0 [facility] CenterAutomated blood basophil count as percentage of total pzvjwiazgz9170-62-48 00:02:00* Test Item Value Reference Range Interpretation Comments Basophils (%) (Auto) (test code = 706-2) 0.4 0.0-1.0 [facility] CenterFluoroscopic procedure less than one hour ywrujyyk0530-57-84 00:02:00* Test Item Value Reference Range Interpretation Comments IM GRANULOCYTES % (test code = IM GRANULOCYTES %) 0.3 0.0- 1.0 [facility] CenterAutomated blood neutrophil count 2020-03-31 00:02:00* Test Item Value Reference Range Interpretation Comments Neutrophils # (Auto) (test code = 751-8) 6.2 2.1-6.9 [facility] CenterBlood lymphocytes count (number/volume) 2020-03-31 00:02:00* Test Item Value Reference Range Interpretation Comments Lymphocytes # (Auto) (test code = 56426-0) 2.5 1.0-3.2 [facility] CenterBlood monocytes automated count (number/volume)2020-03-31 00:02:00* Test Item Value Reference Range Interpretation Comments Monocytes # (Auto) (test code = 742-7) 0.6 0.2-0.8 [facility] CenterAutomated blood eosinophil count 2020-03-31 00:02:00* Test Item Value Reference Range Interpretation Comments Eosinophils # (Auto) (test code = 711-2) 0.8 0.0-0.4 [facility] CenterAutomated blood basophil count (count/volume)2020-03-31 00:02:00* Test Item Value Reference Range Interpretation Comments Basophils # (Auto) (test code = 704-7) 0.0 0.0-0.1 [facility] CenterFluoroscopic procedure less than one hour najfihva5008-74-17 00:02:00* Test Item Value Reference Range Interpretation Comments Absolute Immature Granulocyte (auto (cherrie t code = Absolute Immature Granulocyte (auto) 0.03 0-0.1 [facility] sodium [facility] (moles/volume)2020-03-31 00:02:00* Test Item Value Reference Range Interpretation Comments Sodium Level (test code = 2951-2) 137 136-145 [facility] potassium measurement (moles/volume)2020-03-31 00:02:00* Test Item Value Reference Range Interpretation Comments Potassium Level (test code = 2823-3) 4.3 3.5-5.1 [facility] (moles/volume)2020-03-31 00:02:00* Test Item Value Reference Range Interpretation Comments Chloride Level (test code = 2075-0) 100 98-107 [facility] carbon dioxide, total measurement (moles/volume)2020-03-31 00:02:00* Test Item Value Reference Range Interpretation Comments Carbon Dioxide Level (test code = 2028-9) 25 22-29 [facility] anion [id number] 00:02:00* Test Item Value Reference Range Interpretation Comments Anion Gap (test code = 05274-7) 16.3 8-16 [facility] urea nitrogen measurement (mass/volume)2020-03-31 00:02:00* Test Item Value Reference Range Interpretation Comments Blood Urea Nitrogen (test code = 3094-0) 15 7-26 [facility] creatinine measurement (mass/volume)2020-03-31 00:02:00* Test Item Value Reference Range Interpretation Comments Creatinine (test code = 2160-0) 0.80 0.57-1.11 [facility] urea nitrogen/creatinine mass [id number] 00:02:00* Test Item Value Reference Range Interpretation Comments BUN/Creatinine Ratio (test code = 3097-3) 19 6-25 [facility]Estim[facility] rate (GFR) pyylstektadhi3167-31-95 00:02:00* Test Item Value Reference Range Interpretation Comments Estimat Glomerular Filtration Rate (test code = 992551891) > 60 >60 Ranges were taken from the National Kidney Disease Education Program and the [facility] literature.Reference ranges:60 or greater: Jptqik21-37 ( for 3 consecutive months): Chronic kidney disease 15 or less: Kidney failureMethod[facility] CenterGlucose [id number] 00:02:00* Test Item Value Reference Range Interpretation Comments Glucose Level (test code = JWI5400) 110 74-118 [facility] calcium measurement (mass/volume)2020-03-31 00:02:00* Test Item Value Reference Range Interpretation Comments Calcium Level (test code = 84096-7) 9.5 8.4-10.2 [facility] total bilirubin measurement (mass/volume)2020-03-31 00:02:00* Test Item Value Reference Range Interpretation Comments Total Bilirubin (test code = 1975-2) 0.2 0.2-1.2 [facility] CenterFluoroscopic procedure less than one hour [id number] 00:02:00* Test Item Value Reference Range Interpretation Comments Aspartate Amino Transf (AST/SGOT) (test code = Aspartate Amino Transf (AST/SGOT)) 12 5-34 [facility] alanine aminotransferase measurement (enzymatic activity/volume)2020-03-31 00:02:00* Test Item Value Reference Range Interpretation Comments Alanine Aminotransferase (ALT/SGPT) (test code = 1742-6) 15 0-55 [facility] protein measurement (mass/volume)2020-03-31 00:02:00* Test Item Value Reference Range Interpretation Comments Total Protein (test code = 2885-2) 7.5 6.5-8.1 [facility] albumin measurement (mass/volume)2020-03-31 00:02:00* Test Item Value Reference Range Interpretation Comments Albumin (test code = 1751-7) 3.8 3.5-5.0 [facility] CenterPlasma globulin measurement (mass/volume) 2020-03-31 00:02:00* Test Item Value Reference Range Interpretation Comments Globulin (test code = 80124-4) 3.7 2.3-3.5 [facility] albumin/globulin mass [id number] 00:02:00* Test Item Value Reference Range Interpretation Comments Albumin/Globulin Ratio (test code = 1759-0) 1.0 0.8-2.0 [facility] alkaline phosphatase measurement (enzymatic activity/volume)2020-03-31 00:02:00* Test Item Value Reference Range Interpretation Comments Alkaline Phosphatase (test code = 6768-6) 83 40-150 [facility] creatine kinase measurement (enzymatic activity/volume)2020-03-31 00:02:00* Test Item Value Reference Range Interpretation Comments Creatine Kinase (test code = 2157-6) 105 29-168 [facility] creatine kinase MB measurement (mass/volume)2020-03-31 00:02:00* Test Item Value Reference Range Interpretation Comments Creatine Kinase MB (test code = 81335-7) 2.20 0-5.0 [facility] CenterTroponin I measurement by highly sensitive enzyme ksdzialhimo2527-23-70 00:02:00* Test Item Value Reference Range Interpretation Comments Troponin I (test code = 44285-8) < 0.001 0-0.300 [facility]
[2020-04-30] MEDS ORDERED: DOCUSATE SODIUM 100 MG CAP PO PRN (13:45)
[2020-04-30 15:08] VITALS: BP 142/66
[2020-04-30 15:12] VITALS: BP 142/66
[2020-04-30 16:34] VITALS: BP 142/66
[2020-04-30 17:14] LABS: CREATINE KINASE MB 6.3 ng/mL (0-5.0)
--- NOTE | 2020-04-30 19:24 | NUR ---
SPOKE TO MD SHANE. NEW ORDERS RECEIVED.
[2020-04-30 19:49] VITALS: BP 144/67
[2020-04-30 20:00] VITALS: BP 144/67
[2020-04-30] MEDS ORDERED: MELATONIN 5 MG TABLET PO PRN (21:00)
--- NOTE | 2020-04-30 23:27 | NUR ---
SPOKE TO MD SHANE REGARDING SODIUM 30. NEW ORDERS RECEIVED.
[2020-04-30 23:35] LABS: CREATINE KINASE MB 5.4 ng/mL (0-5.0)
[2020-05-01] VITALS (8 sets, daily range): BP systolic 137–154; BP diastolic 52–61
--- NOTE | 2020-05-01 01:42 | History and Physical ---
CHIEF COMPLAINT: Diarrhea. HISTORY OF PRESENT ILLNESS: A 80-year-old female, who presented to the ED with complaints of ongoing diarrhea for the last 2 weeks. The patient reports going to a [place] restaurant here in [place]. After eating some soup, she had significant amount of retching, vomiting, and severe diarrhea. Denies any blood per rectum. No hematemesis. No other sick contacts at home that went to the restaurant with her. Due to the worsening diarrhea, she came to the ED for further evaluation and management. The patient was found to have a low sodium level. REVIEW OF SYSTEMS: Significant loose watery diarrhea, lightheadedness, dizziness, decreased oral intake. The rest of 14-point review of systems have been reviewed with the patient and are negative. ALLERGIES: PENICILLINS. HOME MEDICATIONS: None. PAST MEDICAL HISTORY: None. PAST SURGICAL HISTORY: None. FAMILY HISTORY: Hypertension, diabetes. SOCIAL HISTORY: No drugs. No alcohol. Does not smoke. Good social support. PHYSICAL EXAMINATION: VITAL SIGNS: Temperature 97.8, pulse 69, respiratory rate 21, blood pressure 144/67, pulse ox 100% on room air. GENERAL: No acute distress. Alert and oriented x3. She was cooperative on examination. HEENT: Head is normocephalic and atraumatic. Eyes; pupils are equal, round, and reactive to light bilaterally. Extraocular movements are intact bilaterally. Throat, no evidence of any erythema or exudates in the posterior pharynx. Has poor dentition. NECK: Supple. Good range of motion. PULMONARY: Clear to auscultation bilaterally. No wheezing, rales, or rhonchi. No crackles appreciated. CARDIOVASCULAR: Positive S1, S2. No murmurs, rubs, or gallops appreciated. ABDOMEN: Soft, nondistended, nontender to palpation. Bowel sounds present. MUSCULOSKELETAL: Strength is 5/5 throughout. No evidence of any muscle deficits on examination. SKIN: Intact. Warm to touch. Good cap refill. PSYCHIATRIC: Normal affect and mood. EXTREMITIES: No edema. Good range of motion throughout. LABORATORY FINDINGS: White count 6.1, hemoglobin 12, hematocrit 35, platelets of 366. Chemistry; on admission, sodium 125, now 130, potassium 3.7, chloride 88, bicarb is 23, anion gap of 17, BUN 6, creatinine is 0.8, glucose 116, calcium is 9.4, total bilirubin is 0.5. LFTs within normal range. CK was 317. Troponins were negative. Lipase was 7. Urinalysis negative. Stool lactoferrin pending. Serology; coronavirus PCR pending. Clostridium difficile pending. Microbiology; stool ova, parasite and Giardia are pending. IMAGING STUDIES: CT abdomen and pelvis, no acute findings in the abdomen and pelvis. Diffuse hepatic steatosis. Diverticulosis without CT evidence of diverticulitis. Chest x-ray, no focal pneumonia or pulmonary edema. IMPRESSION: 1. Diarrhea, could be secondary to food poisoning. 2. Nausea/vomiting/decreased oral intake. 3. The patient was hyponatremic. PLAN: The patient does not take any home medications. GI has been consulted. Clostridium difficile toxin and stool cultures have been collected. She was recently on Bactrim from her PCP. No improvement, she came to the ED for further evaluation. Imaging studies seemed to be negative for any colitis. GI was consulted for the serologies and workup per GI. Initiate home medications. Lovenox for DVT prophylaxis. Sodium level is gradually improving. We will go ahead and stop the IV fluids for now and monitor closely. MD ILEANA Bonds/SARAH /[id number]
[2020-05-01] MEDS ORDERED: BENADRYL25 M1 PO (04:47)
[2020-05-01] MEDS ORDERED: LOSARTAN POTASS25 MG PO (04:47)
[2020-05-01] MEDS ORDERED: SIMVASTATIN20 MG PO (04:47)
[2020-05-01] MEDS ORDERED: LOPRESSOR25 MG PO (04:47)
[2020-05-01] MEDS ORDERED: ELIQUIS2.5 MG (04:47)
[2020-05-01] MEDS ORDERED: METFORMIN HCL500 MG PO (05:50)
[2020-05-01 06:40] LABS: BASOPHILS # (AUTO) 0.1 (0.0-0.1); EOSINOPHILS # (AUTO) 0.2 (0.0-0.4); HEMOGLOBIN 11.7 g/dL (12.0-16.0); LYMPHOCYTES # (AUTO) 2.1 (1.0-3.2); LYMPHOCYTES % 31.9 % (18.0-39.1); MEAN CORPUSCULAR HEMOGLOBIN 27.6 pg (28-32); MEAN CORPUSCULAR HGB CONC 33.4 g/dL (31-35); MEAN CORPUSCULAR VOLUME 82.5 fL (81-99); MONOCYTES # (AUTO) 0.6 (0.2-0.8); MONOCYTES % 9.4 % (4.4-11.3); NEUTROPHILS # (AUTO) 3.6 (2.1-6.9); NEUTROPHILS % 54.6 % (38.7-80.0); PLATELET COUNT 356 x10e3/uL (140-360); RED BLOOD COUNT 4.24 x10e6/uL (3.6-5.1); RED CELL DISTRIBUTION WIDTH 12.9 % (11.7-14.4)
[2020-05-01 06:58] LABS: ALANINE AMINOTRANSFERASE 14 IU/L (0-55); ALBUMIN 3.5 g/dL (3.5-5.0); ALBUMIN/GLOBULIN RATIO 1.1 (0.8-2.0); ALKALINE PHOSPHATASE 80 IU/L (40-150); ANION GAP 12.5 mmol/L (8-16); BLOOD UREA NITROGEN 5 mg/dL (7-26); BUN/CREATININE RATIO 7 (6-25); CALCIUM 8.9 mg/dL (8.4-10.2); CARBON DIOXIDE 25 mmol/L (22-29); CHLORIDE 99 mmol/L (98-107); CREATININE, SERUM 0.69 mg/dL (0.57-1.11); EST GLOMERULAR FILTRATION RATE > 60 ML/MIN (60-); GLUCOSE 95 mg/dL (74-118); POTASSIUM 3.5 mmol/L (3.5-5.1); SODIUM 133 mmol/L (136-145)
--- NOTE | 2020-05-01 07:00 | NUR ---
RECEIVED BEDSIDE REPORT FROM OFF GOING NIGHT NURSE. PATIENT IN STABLE CONDITION, NO S/S OF DISTRESS NOTED. NO PAIN VOICED. TELEMETRY APPLIED. IV SITE ASYMPTOMATIC AND PATENT, TRANSPARENT DRESSING C/D/I. BED IN LOWEST POSITION AND LOCKED, SIDE RAILS X 2. CALL LIGHT WITHIN REACH.
--- NOTE | 2020-05-01 07:15 | NUR ---
REPORT GIVEN TO DAYSHIFT NURSE. ALERT AND RESTING IN BED. NO SIGNS IV INFILTRATION. BED LOCKED AND IN LOW POSITION. CALL LIGHT WITHIN REACH.
[2020-05-01] MEDS ORDERED: OMEPRAZOLE20 MG PO (09:47)
[2020-05-01] MEDS ORDERED: NORVASC10 MG PO (09:48)
[2020-05-01] MEDS ORDERED: LEVOFLOXACIN500 MG PO (09:51)
[2020-05-01] MEDS ORDERED: LORATADINE10 MG PO (10:13)
[2020-05-01] MEDS ORDERED: CLONIDINE HCL0.1 MG PO (10:14)
[2020-05-01] MEDS: SODIUM CHLORIDE 0.9% 1000ML 1,000 ML IV SCH (11:08)
--- NOTE | 2020-05-01 12:20 | NUR ---
ROUNDED ON THE PATIENT AND ORDERED TO ADVANCED THE DIET TOLERATED.
--- NOTE | 2020-05-01 19:15 | NUR ---
Received report from day nurse. patient is resting comfortably in the bed. bed is in lowest position and call light is within reach.
--- NOTE | 2020-05-01 19:32 | NUR ---
COMPLETED BEDSIDE REPORT AND ROUNDING WITH ONCOMING NIGHT NURSE. PATIENT IN STABLE CONDITION, NO S/S OF DISTRESS NOTED. NO PAIN VOICED. TELEMETRY APPLIED. IV FLUIDS INFUSING, SITE ASYMPTOMATIC AND PATENT, TRANSPARENT DRESSING C/D/I. BED IN LOWEST POSITION AND LOCKED, SIDE RAILS X 2. CALL LIGHT WITHIN REACH.
--- NOTE | 2020-05-01 22:58 | Progress Note ---
DATE: 05/01/2020 Medicine Progress Note SUBJECTIVE: The patient is doing well today. In fact, had no diarrhea when I evaluated her. PHYSICAL EXAMINATION: VITAL SIGNS: Temperature is 97.4, pulse 72, respiratory rate is 18, blood pressure 147/58, and pulse ox 98% on room air. GENERAL: Not in acute distress. Alert and oriented x3. Cooperative on examination. HEENT: Head; normocephalic, atraumatic. Eyes; pupils are equal, round, and reactive to light bilaterally. Extraocular movements intact bilaterally. Throat; no evidence of erythema or exudates in the posterior pharynx. Has poor dentition. NECK: Supple. Good range of motion. PULMONARY: Clear to auscultation bilaterally. No wheezing, no rales, no rhonchi, no crackles appreciated. CARDIOVASCULAR: Positive S1 and S2. No murmurs, rubs, or gallops appreciated. ABDOMEN: Soft, nondistended, and nontender to palpation. Bowel sounds present. MUSCULOSKELETAL: Strength is 5/5 throughout. No evidence of any muscle deficits on examination. SKIN: Intact. Warm to touch. Good cap refill. EXTREMITIES: No edema. Good range of motion throughout. LABORATORY FINDINGS: Show white count 6.6, hemoglobin 11, hematocrit is 35, and platelets of 356. Chemistry; sodium was 133, potassium 3.5, chloride 99, bicarb 25, anion gap of 12, BUN is 5, creatinine is 0.69, and glucose 95. LFTs within normal range. CK was 234. Lipase level was 7. Urinalysis negative. Coronavirus was not detected. C. difficile toxin is not detected. MICROBIOLOGY: Stool occult for Giardia and ova and parasites are pending. IMAGING STUDIES: CT abdomen and pelvis shows no acute findings in the abdomen or pelvis. Diffuse hepatic steatosis. No CT evidence of diverticulitis. Chest x-ray shows no focal pneumonia or pulmonary edema. IMPRESSION: 1. Diarrhea secondary presumably from food poisoning, now improving. 2. Nausea, vomiting, and decreased oral intake, now resolving. 3. Hyponatremia-resolved. PLAN: At this time, GI is following. C. difficile toxin was found to be negative. Stool cultures are still pending. Her diarrhea is now better when I evaluated her this morning. Get morning labs. I will go ahead and continue with low-dose IV fluids. Advance diet. If stable, discharge home tomorrow. MD ILEANA Bonds/SARAH /[id number]
[2020-05-02] VITALS (7 sets, daily range): BP systolic 144–171; BP diastolic 56–76
[2020-05-02 06:50] LABS: BASOPHILS # (AUTO) 0.1 (0.0-0.1); EOSINOPHILS # (AUTO) 0.3 (0.0-0.4); HEMATOCRIT 38.2 % (34.2-44.1); HEMOGLOBIN 12.7 g/dL (12.0-16.0); LYMPHOCYTES # (AUTO) 1.9 (1.0-3.2); LYMPHOCYTES % 26.3 % (18.0-39.1); MEAN CORPUSCULAR HEMOGLOBIN 27.9 pg (28-32); MEAN CORPUSCULAR HGB CONC 33.2 g/dL (31-35); MEAN CORPUSCULAR VOLUME 83.8 fL (81-99); MONOCYTES # (AUTO) 0.6 (0.2-0.8); MONOCYTES % 7.8 % (4.4-11.3); NEUTROPHILS # (AUTO) 4.4 (2.1-6.9); NEUTROPHILS % 60.6 % (38.7-80.0); PLATELET COUNT 400 x10e3/uL (140-360); RED BLOOD COUNT 4.56 x10e6/uL (3.6-5.1); RED CELL DISTRIBUTION WIDTH 13.2 % (11.7-14.4)
--- NOTE | 2020-05-02 07:01 | NUR ---
patient is resting comfortably in the bed. bed is in lowest position
[2020-05-02 07:07] LABS: ANION GAP 15.5 mmol/L (8-16); BLOOD UREA NITROGEN 5 mg/dL (7-26); BUN/CREATININE RATIO 7 (6-25); CALCIUM 9.2 mg/dL (8.4-10.2); CARBON DIOXIDE 21 mmol/L (22-29); CHLORIDE 103 mmol/L (98-107); CREATININE, SERUM 0.73 mg/dL (0.57-1.11); EST GLOMERULAR FILTRATION RATE > 60 ML/MIN (60-); GLUCOSE 110 mg/dL (74-118); POTASSIUM 3.5 mmol/L (3.5-5.1); SODIUM 136 mmol/L (136-145)
[2020-05-02] MEDS: PANTOPRAZOLE SOD 40 MG TABEC PO SCH (09:01)
[2020-05-02] MEDS: AMLODIPINE BESYLATE 10 MG TAB PO SCH (09:01)
[2020-05-02] MEDS: LOSARTAN POTASSIUM 25 MG TAB PO SCH (09:01)
[2020-05-02] MEDS: SODIUM CHLORIDE 0.9% 1000ML 1,000 ML IV SCH ×2 (15:20)
[2020-05-02] MEDS ORDERED: LOPERAMIDE HCL 2 MG CAP PO PRN (18:30)
--- NOTE | 2020-05-02 18:51 | Progress Note ---
DATE: 05/02/2020 Medicine Progress Note SUBJECTIVE: The patient reportedly is doing okay, but still feels very sick. She had some diarrhea last night, but today this morning and this afternoon, no diarrhea. She is tolerating her diet well. LABORATORY FINDINGS: Show white count 7.2, hemoglobin 12, hematocrit 38, platelets of 400. Chemistry, sodium 136, potassium 3.5, chloride 103, bicarb 21, anion gap of 15. BUN is 5, creatinine 0.73, glucose 110, calcium is 9.2. PHYSICAL EXAMINATION: VITAL SIGNS: Temperature is 98.4, pulse 73, respiratory rate is 18, blood pressure 144/59, pulse ox 99% on room air. GENERAL: Not in acute distress. Alert and oriented x3. Cooperative on examination. HEENT: Head; normocephalic, atraumatic. Eyes; pupils are equal, round, and reactive to light bilaterally. Extraocular movements intact bilaterally. Throat; no evidence of erythema or exudates in the posterior pharynx. Has poor dentition. NECK: Supple. Good range of motion. PULMONARY: Clear to auscultation bilaterally. No wheezing, no rales, no rhonchi, no crackles appreciated. CARDIOVASCULAR: Positive S1 and S2. No murmurs, rubs, or gallops appreciated. GI: Abdomen is soft, nondistended, and nontender to palpation. Bowel sounds present. MUSCULOSKELETAL: Strength is 5/5 throughout. No evidence of any muscle deficits on examination. No weakness appreciated. NEUROLOGIC: Cranial nerves 2 through 12 grossly intact. No evidence of any neurological deficits on exam. SKIN: Intact. Warm to touch. Good cap refill. PSYCHIATRIC: Normal affect and mood. EXTREMITIES: No edema. Good range of motion throughout. IMPRESSION: 1. Diarrhea, secondary from underlying food poisoning, presumably improving. 2. Nausea, vomiting, decreased oral intake, resolving. 3. Hyponatremia. PLAN: At this time, sodium level is improved. She is still having some diarrhea. We will add some loperamide p.r.n. She is eating well with no issues. Continue with IV fluids for now before avoidance of any dehydration. If she does well, discharge tomorrow with outpatient followup with GI. Discussed plan of care with the patient and nursing staff. Jiries S Dahu, MD JSD/JOELLEL /[id number]
--- NOTE | 2020-05-02 20:20 | NUR ---
PATIENT RESTING IN BED AT THIS TIME. NS INFUSING AT 75ML/HR TO R AC 20G, ASYMPTOMATIC. NO PAIN REPORTED. NO NAUSEA OR VOMITTING TODAY. ONE BM THIS MORNING. NO S&S OF DISTRESS NOTED. BED LOCKED IN LOWEST POSITION, SIDE RAILS UXP2, CALL LIGHT IN REACH.
[2020-05-02] MEDS ORDERED: SIMVASTATIN 20 MG TAB PO SCH (21:00)
[2020-05-03] VITALS: BP 163/64
[2020-05-03 04:00] VITALS: BP 154/64
[2020-05-03] MEDS: SODIUM CHLORIDE 0.9% 1000ML 1,000 ML IV SCH (04:30)
[2020-05-03 07:05] LABS: BLOOD UREA NITROGEN < 5 mg/dL (7-26); CALCIUM 8.6 mg/dL (8.4-10.2); CARBON DIOXIDE 23 mmol/L (22-29); CHLORIDE 106 mmol/L (98-107); CREATININE, SERUM 0.67 mg/dL (0.57-1.11); EST GLOMERULAR FILTRATION RATE > 60 ML/MIN (60-); GLUCOSE 108 mg/dL (74-118); SODIUM 138 mmol/L (136-145)
[2020-05-03 07:06] LABS: BUN/CREATININE RATIO 7 (6-25)
--- NOTE | 2020-05-03 07:23 | NUR ---
PATIENT SITTING AT BED SIDE WATCHING TV. IV FLUID INFUSING ORDERED. BED IN LOWER POSITION, CALL LIGHT AT REACH.
[2020-05-03 07:45] VITALS: BP 187/78
[2020-05-03 07:56] VITALS: BP 187/72
[2020-05-03] MEDS: LOSARTAN POTASSIUM 25 MG TAB PO SCH (09:04)
[2020-05-03] MEDS: PANTOPRAZOLE SOD 40 MG TABEC PO SCH (09:04)
[2020-05-03] MEDS: AMLODIPINE BESYLATE 10 MG TAB PO SCH (09:04)
--- NOTE | 2020-05-03 11:20 | NUR ---
SPOKE WITH MD REGARDING ABNORMAL LAB RESULT. NEW ORDER RECEIVED.
[2020-05-03] MEDS ORDERED: POTASSIUM CHLORIDE 10MEQ EA PO ONE ×2 (11:30→18:00)
[2020-05-03 11:54] VITALS: BP 155/70
--- NOTE | 2020-05-03 15:16 | NUR ---
PATIENT IN BED RESTING WITH NO S/S OF DISCOMFORT. CALL LIGHT AT REACH.
[2020-05-03 15:57] VITALS: BP 146/57
[2020-05-03] MEDS ORDERED: NYSTATIN 15 GM POWDER UD BTL TOP SCH (17:30)
[2020-05-03] MEDS ORDERED: LOPERAMIDE2 MG PO (18:06)
--- NOTE | 2020-05-03 18:25 | NUR ---
PATIENT DISCHARGED HOME. DISCHARGE INSTRUCTIONS, PRESCRIPTION, AND FOLLOW UP GIVEN TO PATIENT, SHE VERBALIZED UNDERSTANDING. IV TO RIGHT AC REMOVED WITH TIP INTACT. ALL PERSONAL ITEMS TAKEN WITH PATIENT. LEFT UNIT PER WHEEL CHAIR TO FRONT LOBBY IN STABLE CONDITION.
--- NOTE | 2020-05-03 21:50 | Discharge Summary ---
FINAL DISCHARGE DIAGNOSES: 1. Viral gastroenteritis-improved. 2. Nausea, vomiting, decreased oral intake-resolved. 3. Mild hyponatremia-resolved. CONSULTANTS: GI. PHYSICAL EXAMINATION: VITAL SIGNS: Temperature is 98.1, pulse 71, respiratory rate is 18, blood pressure 146/57, pulse ox 99% on room air. LABORATORY FINDINGS: Show white count 7.2, hemoglobin 12.7, hematocrit is 38, platelets of 400. Chemistry; sodium 138, potassium 3, replaced with 60 mEq of p.o. potassium before discharge, chloride 106, bicarb 23, anion gap of 12, BUN is 5, creatinine is 0.67, glucose is 108, calcium is 8.6. LFTs within normal range. Troponins were negative. Lipase level was 7. Urinalysis negative. SEROLOGY: Coronavirus not detected. C difficile toxin not detected. MICROBIOLOGY: Giardia, ova and parasite, and stool cultures were still pending on discharge and will follow up this week with GI as an outpatient. DIAGNOSTIC STUDIES: CT abdomen and pelvis shows no acute findings in the abdomen or pelvis. Diffuse hepatic steatosis. Diverticulosis without any evidence of diverticulitis. Chest x-ray shows no focal pneumonia or pulmonary edema. HOSPITAL COURSE: A 80-year-old female, who came into the ED with several-day history of nausea, vomiting, and diarrhea. The patient was admitted and GI was consulted. CT imaging shows no acute findings. The patient was treated for underlying viral gastroenteritis. She was hyponatremic, mildly and was treated accordingly with IV fluids. The patient's electrolytes were replaced accordingly. She did receive potassium on the day of discharge. The patient improved throughout the hospital course. Nausea has improved. No more vomiting and she was tolerating regular diet prior to being discharged to home. In fact, the patient was eager in going home. She was discharged on oral loperamide as well and was advised to follow up with GI in the next 1 week time. The patient verbalized understanding. At this time, since the patient is doing well with no issues, her diarrhea improved and she is tolerating diet well, she has been cleared for discharge by GI. On the day of discharge, vital signs were stable, labs reviewed and stable. The patient is seen and evaluated, and examined thoroughly on the day of discharge. No other complaints. The patient verbalized understanding and agrees to plan of care to follow up accordingly as an outpatient with primary care physician in 1 week and GI specialist in 1 week time. MEDICATIONS: See med reconciliation form. DISPOSITION: Home. CONDITION: Stable. DIET: Heart healthy. In the event of any worsening symptoms, the patient was advised to come back to the ED for further evaluation. Discharge summary took greater than 35 minutes. MD ILEANA Bonds/MODL /[id number]
== END 2020-05-03 18:20 | disposition home or self-care (01) | DRG 392 ==
LOC: ER 10:15 → ERHOLD 12:00 → MED/SURG3 13:56
PROVIDERS: ADMIT Internal Medicine; ATTEND Internal Medicine
DX: A09 Infectious gastroenteritis and colitis, unspecified (principal); E87.1 Hypo-osmolality and hyponatremia; Z11.59 Encounter for screening for other viral diseases; I10 Essential (primary) hypertension; K21.9 Gastro-esophageal reflux disease without esophagitis; E78.5 Hyperlipidemia, unspecified
CPT/HCPCS: 36415; 71045; 74177; 80048; 80053; 81001; 82550; 82553; 82948; 83630; 83690; 84295; 84484; 85025; 87045; 87177; 87328; 87493; 99284; J7030; Q9967; U0002

== ENCOUNTER 2020-05-09 17:06 | Emergency (ER) | payer MEDICARE, OTHER ==
[~2020-05-09] VITALS: Ht 165.1 cm; Wt 72.6 kg
[~2020-05-09 17:06] MED LIST: BENADRYL25 M1 PO; CLONIDINE HCL0.1 MG PO; ELIQUIS2.5 MG; LEVOFLOXACIN500 MG PO; LOPERAMIDE2 MG PO; LOPRESSOR25 MG PO; LORATADINE10 MG PO; LOSARTAN POTASS25 MG PO; METFORMIN HCL500 MG PO; NORVASC10 MG PO; OMEPRAZOLE20 MG PO; SIMVASTATIN20 MG PO
--- OUTSIDE RECORDS SUMMARY | 2020-05-09 17:17 | XMS REPORT | Continuity of Care Document ---
Author Author [facility] t Organization [facility] Address [address] [place] [address] Phone Unavailable Care Team Providers Care Director Of Student Life Name Role Phone NO, PCP PCP Unavailable Viviane HOOVER Attphys Unavailable Luciana MCLAUGHLIN Attphys Unavailable Payers Payer Name Policy Type Policy Number Effective Date Expiration Date Viviane Landers Medicare [id number] 2015 00:00:00 [facility] [employer] [id number] 2015 00:00:00 [facility] Problems Condition Name Condition Details Condition Category Status Onset Date Resolution Date Last Treatment Date Treating Clinician Comments Source Mass on back Mass on back Disease Active 2017-10-15 00:00:00 [facility] Neuropathy Problem Active [facility] Gastritis Problem Active [facility] Abdominal pain Problem Active [facility] Allergies, Adverse Reactions, Alerts Allergy Name Allergy Type Status Severity Reaction(s) Onset Date Inacti ve Date Treating Clinician Comments Source Penicillin Allergy to substance Active Moderate 2020-03-31 00:00:0 0 [facility] Penicillin Propensity to adverse reactions to drug Active Rash, Swelling 2016-07-22 00:00:00 Chidi oliveira Social History Social Habit Start Date Stop Date Quantity Comments Source Sex Assigned At [facility] Alcohol intake 2016-07-22 00:00:00 2016-07-22 00:00:00 Current non-drinker of alcohol (finding) [facility] Smoking Status Start Date Stop Date Source Never smoker [facility] Medications Ordered Medication Name Filled Medication Name Start Date Stop Da te Current Medication? Ordering Clinician Indication Dosage Frequency Signature (SIG) Comments Components Source ibuprofen (MOTRIN) 800 mg tablet 2016-07-22 00:00:00 Yes Pain, dental 800mg Take 1 tablet by mouth every 8 hours as needed for Pain (take with food). [facility] gabapentin (NEURONTIN) 300 mg capsule 2011-05-02 00:00:00 Yes Renal colic 300mg Take 1 Cap by mouth daily before a meal. [facility] Vital Signs Vital Name Observation Time Observation Value Comments Source Weight 2020-04-25 21:35:00 168 [lb_av] [facility] BMI (Body Mass Index) 2020-04-25 21:35:00 32.8 kg/m2 [facility] Body Temperature 2020-03-31 01:33:00 98.4 [degF] [facility] Weight 2020-03-30 23:56:00 168 [lb_av] [facility] BMI (Body Mass Index) 2020-03-30 23:56:00 32.8 kg/m2 [facility] Procedures Procedure Date / Time Performed Performing Clinician Bhavin chan US Gallbladder 2020-04-25 00:00:00 [facility] Computed tomography of brain without radiopaque contrast 2020-03 00:00:00 [facility] Plan of Care Planned Activity Planned Date Details Comments Source Future Scheduled Test 2020-06-18 00:00:00 IMM Influenza Seas onal Jun to November (>/= 19 yrs) [code = IMM Influenza Seasonal Jun to November (>/= 19 yrs)] [facility] Future Scheduled Test 2006 00:00:00 IMM Pneumococcal A ge 65 and Up [code = IMM Pneumococcal Age 65 and Up] [facility] Instructions Abdominal Pain - Adult [facility] Instructions [place] Diet - Adult [facility] Instructions Heartburn [facility] Encounters Start Date/Time End Date/Time Encounter Type Admission Type Attendi [facility] Facility Care Department Encounter ID Source 2020-04-25 21:49:00 2020-04-25 23:58:00 Departed Emergency Room BAUTISTA MCLAUGHLIN [facility] [id number] [facility] 2020-03-31 01:00:00 2020-03-31 01:45:00 Departed Emergency Room ELBA HOOVER [facility] [id number] [facility] 2019-07-16 10:36:00 2019-07-16 10:36:00 Emergency E [facility] [address] [facility] [place] [place] 2018-09-07 20:09:00 2018-09-07 20:09:00 Emergency E [facility] [address] [facility] [place] 2017-10-15 17:12:18 2017-10-15 17:12:18 [facility] [id number] [facility] Results Test Description Test Time Test Comments Results Result Comments Source CT ABDOMEN/PELVIS W 2020-04-30 11:51:00 [facility] [address] [address] Patient Name: TRELL BURROWS MR #: [id number] : 1940 Age/Sex: 80/F Req #: [id number] Adm Physician: Ordered by: ELBA HOOVER DO Report #: [id number] Location: ER Room/Bed: Procedure: [id number] CT/CT ABDOMEN/PELVIS W Exam Date: 04/30/20 Exam [...] HOOVER DO CHEST SINGLE (PORTABLE) 2020-04-30 11:27:[address] [address] Patient Name: TRELL BURROWS MR #: [id number] : 1940 Age/Sex: 80/F Req #: [id number] Adm Physician: Ordered by: ELBA HOOVER DO Report #: [id number] Location: ER Room/Bed: Procedure: [id number] DX/CHEST SINGLE (PORTABLE) Exam Date: 04/30/20 Exam [...] TO: ELBA HOOVER DO GALLBLADDER 2020-04-25 22:52:00 [address] [address] Patient Name: TRELL BURROWS MR #: [id number] : 1940 Age/Sex: 79/F Req #: [id number] Adm Physician: Ordered by: BAUTISTA MCLAUGHLIN MD Report #: [id number] Location: ER Room/Bed: Procedure: US/US GALLBLADDER Exam [...] Count (test code = 6690-2) 8.91 4.8-10.8 [facility] count (number/volume)2020-04-25 22:05:00* Test Item Value Reference Range Interpretation Comments Red Blood Count (test code = 789-8) 4.43 3.6-5.1 [facility] measurement (moles/volume)2020-04-25 22:05:00* Test Item Value Reference Range Interpretation Comments Hemoglobin (test code = 53629-3) 12.3 12.0-16.0 [facility] CenterAutomated blood hematocrit (volume fraction)2020-04-25 22:05:00* Test Item Value Reference Range Interpretation Comments Hematocrit (test code = 4544-3) 37.5 34.2-44.1 [facility] CenterAutomated erythrocyte mean corpuscular ysqqfv5016-85-00 22:05:00* Test Item Value Reference Range Interpretation Comments Mean Corpuscular Volume (test code = 787-2) 84.7 81-99 [facility] CenterAutomated erythrocyte mean corpuscular hemoglobin (mass per erythrocyte)2020-04-25 22:05:00* Test Item Value Reference Range Interpretation Comments Mean Corpuscular Hemoglobin (test code = 785-6) 27.8 28-32 [facility] CenterAutomated erythrocyte mean corpuscular hemoglobin concentration measurement (mass/volume)2020-04-25 22:05:00* Test Item Value Reference Range Interpretation Comments Mean Corpuscular Hemoglobin Concent (test code = 786-4) 32.8 31-35 [facility] CenterRDW GvoUx-Nil1694-21-08 22:05:00* Test Item Value Reference Range Interpretation Comments Red Cell Distribution Width (test code = 98092-7) 13.3 11.7 -14.4 [facility] CenterAutomated blood platelet count (count/volume)2020-04-25 22:05:00* Test Item Value Reference Range Interpretation Comments Platelet Count (test code = 777-3) 364 140-360 [facility] CenterAutscionhealthed blood segmented neutrophil count as percentage of total rpdasiavfd8156-62-42 22:05:00* Test Item Value Reference Range Interpretation Comments Neutrophils (%) (Auto) (test code = 00384-4) 63.6 38.7-80.0 [facility] CenterAutomated blood lymphocyte count as percentage ot total oqrgswxacm6181-01-89 22:05:00* Test Item Value Reference Range Interpretation Comments Lymphocytes (%) (Auto) (test code = 736-9) 23.6 18.0-39.1 [facility] CenterAutomated blood monocyte count as percentage of total ycrzamoyoe1930-02-05 22:05:00* Test Item Value Reference Range Interpretation Comments Monocytes (%) (Auto) (test code = 5905-5) 7.4 4.4-11.3 [facility] CenterAutomated blood eosinophil count as percentage of total jsgioqcotm3257-76-49 22:05:00* Test Item Value Reference Range Interpretation Comments Eosinophils (%) (Auto) (test code = 713-8) 4.3 0.0-6.0 [facility] CenterAutomated blood basophil count as percentage of total gxrkfvlqge2569-80-68 22:05:00* Test Item Value Reference Range Interpretation Comments Basophils (%) (Auto) (test code = 706-2) 0.9 0.0-1.0 [facility] CenterFluoroscopic procedure less than one hour lorkbfyl5581-57-41 22:05:00* Test Item Value Reference Range Interpretation Comments IM GRANULOCYTES % (test code = IM GRANULOCYTES %) 0.2 0.0- 1.0 [facility] CenterAutomated blood neutrophil count 2020-04-25 22:05:00* Test Item Value Reference Range Interpretation Comments Neutrophils # (Auto) (test code = 751-8) 5.7 2.1-6.9 [facility] CenterBlood lymphocytes count (number/volume) 2020-04-25 22:05:00* Test Item Value Reference Range Interpretation Comments Lymphocytes # (Auto) (test code = 96419-4) 2.1 1.0-3.2 [facility] CenterBlood monocytes automated count (number/volume)2020-04-25 22:05:00* Test Item Value Reference Range Interpretation Comments Monocytes # (Auto) (test code = 742-7) 0.7 0.2-0.8 [facility] CenterAutomated blood eosinophil count 2020-04-25 22:05:00* Test Item Value Reference Range Interpretation Comments Eosinophils # (Auto) (test code = 711-2) 0.4 0.0-0.4 [facility] CenterAutomated blood basophil count (count/volume)2020-04-25 22:05:00* Test Item Value Reference Range Interpretation Comments Basophils # (Auto) (test code = 704-7) 0.1 0.0-0.1 [facility] CenterFluoroscopic procedure less than one hour nitdjbqi9163-04-96 22:05:00* Test Item Value Reference Range Interpretation Comments Absolute Immature Granulocyte (auto (cherrie t code = Absolute Immature Granulocyte (auto) 0.02 0-0.1 [facility] sodium measurement (moles/volume)2020-04-25 22:05:00* Test Item Value Reference Range Interpretation Comments Sodium Level (test code = 2951-2) 133 136-145 [facility] Hospitalerum or plasma potassium measurement (moles/volume)2020-04-25 22:05:00* Test Item Value Reference Range Interpretation Comments Potassium Level (test code = 2823-3) 4.3 3.5-5.1 [facility] Hospitaler[facility] or plasma chloride measurement (moles/volume)2020-04-25 22:05:00* Test Item Value Reference Range Interpretation Comments Chloride Level (test code = 2075-0) 98 98-107 [facility] Hospitalerum or plasma carbon dioxide, total measurement (moles/volume)2020-04-25 22:05:00* Test Item Value Reference Range Interpretation Comments Carbon Dioxide Level (test code = 2028-9) 24 - [facility] Hospitalerum or plasma anion sfx0955-72-31 22:05:00* Test Item Value Reference Range Interpretation Comments Anion Gap (test code = 54222-6) 15.3 8-16 [facility] Hospitalerum or plasma urea nitrogen measurement (mass/volume)2020-04-25 22:05:00* Test Item Value Reference Range Interpretation Comments Blood Urea Nitrogen (test code = 3094-0) 12 7-26 [facility] Hospitalerum or plasma creatinine measurement (mass/volume)2020-04-25 22:05:00* Test Item Value Reference Range Interpretation Comments Creatinine (test code = 2160-0) 1.04 0.57-1.11 [facility] Hospitalerum or plasma urea nitrogen/creatinine mass rttjq2853-91-65 22:05:00* Test Item Value Reference Range Interpretation Comments BUN/Creatinine Ratio (test code = 3097-3) 12 6-25 [facility] CenterEstimated glomerular filtration rate (GFR) cseyaqdjjeuun1860-12-14 22:05:00* Test Item Value Reference Range Interpretation Comments Estimat Glomerular Filtration Rate (test code = 470311200) 51 >60 Ranges were taken from the National Kidney Disease Education Program and the [facility] Foundation literature.Reference ranges:60 or greater: Wboxej79-74 ( for 3 consecutive months): Chronic kidney disease 15 or less: Kidney failureEnnis Regional Medical CenterGlucose vlqvfxqzear1334-95-27 22:05:00* Test Item Value Reference Range Interpretation Comments Glucose Level (test code = KOE8417) 117 74-118 [facility] Hospitalerum or plasma calcium measurement (mass/volume)2020-04-25 22:05:00* Test Item Value Reference Range Interpretation Comments Calcium Level (test code = 62409-3) 9.6 8.4-10.2 [facility] Hospitalerum or plasma total bilirubin measurement (mass/volume)2020-04-25 22:05:00* Test Item Value Reference Range Interpretation Comments Total Bilirubin (test code = 1975-2) 0.4 0.2-1.2 [facility] CenterFluoroscopic procedure less than one hour tuxujgat0763-27-05 22:05:00* Test Item Value Reference Range Interpretation Comments Aspartate Amino Transf (AST/SGOT) (test code = Aspartate Amino Transf (AST/SGOT)) 17 5-34 [facility] Hospitalerum or plasma alanine aminotransferase measurement (enzymatic activity/volume)2020-04-25 22:05:00* Test Item Value Reference Range Interpretation Comments Alanine Aminotransferase (ALT/SGPT) (test code = 1742-6) 20 0-55 [facility] Hospitalerum or plasma protein measurement (mass/volume)2020-04-25 22:05:00* Test Item Value Reference Range Interpretation Comments Total Protein (test code = 2885-2) 8.1 6.5-8.1 [facility] Hospitalerum or plasma albumin measurement (mass/volume)2020-04-25 22:05:00* Test Item Value Reference Range Interpretation Comments Albumin (test code = 1751-7) 4.2 3.5-5.0 [facility] CenterPlasma globulin measurement (mass/volume) 2020-04-25 22:05:00* Test Item Value Reference Range Interpretation Comments Globulin (test code = 13510-6) 3.9 2.3-3.5 [facility] Hospitalerum or plasma albumin/globulin mass hujmm6467-07-80 22:05:00* Test Item Value Reference Range Interpretation Comments Albumin/Globulin Ratio (test code = 1759-0) 1.1 0.8-2.0 [facility] Hospitalerum or plasma alkaline phosphatase measurement (enzymatic activity/volume)2020-04-25 22:05:00* Test Item Value Reference Range Interpretation Comments Alkaline Phosphatase (test code = 6768-6) 97 40-150 [facility] Hospitalerum or plasma creatine kinase measurement (enzymatic activity/volume)2020-04-25 22:05:00* Test Item Value Reference Range Interpretation Comments Creatine Kinase (test code = 2157-6) 223 29-168 [facility] Hospitalerum or plasma creatine kinase MB measurement (mass/volume)2020-04-25 22:05:00* Test Item Value Reference Range Interpretation Comments Creatine Kinase MB (test code = 65028-8) 5.50 0-5.0 [facility] CenterTroponin I measurement by highly sensitive enzyme cdawwbcrxpj0820-03-71 22:05:00* Test Item Value Reference Range Interpretation Comments Troponin I (test code = 29234-8) < 0.001 0-0.300 [facility] Hospitalerum or plasma amylase measurement (enzymatic activity/volume)2020-04-25 22:05:00* Test Item Value Reference Range Interpretation Comments Amylase Level (test code = 1798-8) 133 25-125 [facility] Hospitalerum or plasma lipase measurement (enzymatic activity/volume)2020-04-25 22:05:00* Test Item Value Reference Range Interpretation Comments Lipase (test code = 3040-3) 24 8-78 [facility] CenterUrine color qdnigghmtysub0136-96-85 21:49:00* Test Item Value Reference Range Interpretation Comments Urine Color (test code = 5778-6) YELLOW YELLOW [facility] CenterUrine pepqcjd8157-95-90 21:49:00* Test Item Value Reference Range Interpretation Comments Urine Clarity (test code = 68201-8) SL CLOUDY CLEAR [facility] Hospitalpecific gravity of Urine by Test strip 2020-04-25 21:49:00* Test Item Value Reference Range Interpretation Comments Urine Specific [place] (test code = 5811-5) 1.010 1.010-1.02 5 [facility] CenterUrine pH measurement by automated test nwbzt1741-75-87 21:49:00* Test Item Value Reference Range Interpretation Comments Urine pH (test code = 28409-3) 5.5 5-7 [facility] CenterUrine leukocyte esterase detection by bcsesivl8543-44-78 21:49:00* Test Item Value Reference Range Interpretation Comments Urine Leukocyte Esterase (test code = 5799-2) NEGATIVE NEGATIVE [facility] CenterUrine nitrite gpsfscbta2544-82-23 21:49:00* Test Item Value Reference Range Interpretation Comments Urine Nitrite (test code = 61585-9) NEGATIVE NEGATIVE [facility] CenterUrine protein measurement by test strip (mass/volume)2020-04-25 21:49:00* Test Item Value Reference Range Interpretation Comments Urine Protein (test code = 5804-0) TRACE NEGATIVE [facility] CenterUrine glucose fxipinsdp7311-10-16 21:49:00* Test Item Value Reference Range Interpretation Comments Urine Glucose (UA) (test code = 2349-9) NEGATIVE NEGATIVE [facility] CenterUrine ketones detection by automated test magci2757-52-71 21:49:00* Test Item Value Reference Range Interpretation Comments Urine Ketones (test code = 18507-2) NEGATIVE NEGATIVE [facility] CenterUrine urobilinogen measurement by test strip (mass/volume)2020-04-25 21:49:00* Test Item Value Reference Range Interpretation Comments Urine Urobilinogen (test code = 69541-2) 0.2 0.2-1 [facility] CenterUrine total bilirubin measurement (mass/volume)2020-04-25 21:49:00* Test Item Value Reference Range Interpretation Comments Urine Bilirubin (test code = 1978-6) NEGATIVE NEGATIVE [facility] CenterUrine erythrocytes ypdzdlbkj7996-76-21 21:49:00* Test Item Value Reference Range Interpretation Comments Urine Blood (test code = 42406-3) MODERATE NEGATIVE [facility] CenterAutomated urine sediment leukocyte count by microscopy (number/high power field)2020-04-25 21:49:00* Test Item Value Reference Range Interpretation Comments Urine WBC (test code = 5821-4) 0-5 0-5 [facility] CenterErythrocytes detection in urine sediment by light gkayfbacok9575-51-84 21:49:00* Test Item Value Reference Range Interpretation Comments Urine RBC (test code = 49369-0) 6-10 0-5 [facility] CenterBacteria detection in urine sediment by light cuvlsqcvsk7156-19-48 21:49:00* Test Item Value Reference Range Interpretation Comments Urine Bacteria (test code = 37757-0) FEW NONE [facility] CenterEpithelial cells detection in urine sediment by light gkquszvelm9833-35-44 21:49:00* Test Item Value Reference Range Interpretation Comments Urine Epithelial Cells (test code = 56473-4) FEW NONE [facility] CenterMucus detection in urine sediment by light qaysjnaevd1145-16-11 21:49:00* Test Item Value Reference Range Interpretation Comments Urine Mucus (test code = 8247-9) FEW RARE [facility] CenterCT BRAIN [place]3400-23-14 00:53:00 [facility] [address] [place] [address] Patient Name: TRELL BURROWS MR #: [id number] : 1940 Age/Sex: 79/F Req #: [id number] Adm Physician: Ordered by: ELBA HOOVER DO Report #: [id number] Location: ER Room/Bed: Procedure: [id number] CT/CT BRAIN W O Exam Date: 03/31/20 [...] No acute abnormalities. 2. Specifically, no ac ewiiaapaayp vascular insults or acute hemorrhage. Chronic findings: [...] Count (test code = 6690-2) 10.13 4.8-10.8 [facility] CenterBlood erythrocytes automated count (number/volume)2020-03-31 00:02:00* Test Item Value Reference Range Interpretation Comments Red Blood Count (test code = 789-8) 4.00 3.6-5.1 [facility] CenterBlood hemoglobin measurement (moles/volume)2020-03-31 00:02:00* Test Item Value Reference Range Interpretation Comments Hemoglobin (test code = 95201-0) 11.1 12.0-16.0 [facility] CenterAutomated blood hematocrit (volume fraction)2020-03-31 00:02:00* Test Item Value Reference Range Interpretation Comments Hematocrit (test code = 4544-3) 34.2 34.2-44.1 [facility] CenterAutomated erythrocyte mean corpuscular ctuchy7809-66-75 00:02:00* Test Item Value Reference Range Interpretation Comments Mean Corpuscular Volume (test code = 787-2) 85.5 81-99 [facility] CenterAutomated erythrocyte mean corpuscular hemoglobin (mass per erythrocyte)2020-03-31 00:02:00* Test Item Value Reference Range Interpretation Comments Mean Corpuscular Hemoglobin (test code = 785-6) 27.8 28-32 [facility] CenterAutscionhealthed erythrocyte mean corpuscular hemoglobin concentration measurement (mass/volume)2020-03-31 00:02:00* Test Item Value Reference Range Interpretation Comments Mean Corpuscular Hemoglobin Concent (test code = 786-4) 32.5 31-35 [facility] CenterRDW OjwXk-Hmk2562-56-14 00:02:00* Test Item Value Reference Range Interpretation Comments Red Cell Distribution Width (test code = 07200-7) 13.3 11.7 -14.4 [facility] CenterAutscionhealthed blood platelet count (count/volume)2020-03-31 00:02:00* Test Item Value Reference Range Interpretation Comments Platelet Count (test code = 777-3) 344 140-360 [facility] CenterAutomated blood segmented neutrophil count as percentage of total lserprqyao5895-91-15 00:02:00* Test Item Value Reference Range Interpretation Comments Neutrophils (%) (Auto) (test code = 05636-3) 61.0 38.7-80.0 [facility] CenterAutomated blood lymphocyte count as percentage ot total svopxfmjet3347-87-68 00:02:00* Test Item Value Reference Range Interpretation Comments Lymphocytes (%) (Auto) (test code = 736-9) 24.5 18.0-39.1 [facility] CenterAutomated blood monocyte count as percentage of total wnzrrmgoiu0597-34-28 00:02:00* Test Item Value Reference Range Interpretation Comments Monocytes (%) (Auto) (test code = 5905-5) 5.7 4.4-11.3 [facility] CenterAutomated blood eosinophil count as percentage of total nwhkwytavl6696-58-85 00:02:00* Test Item Value Reference Range Interpretation Comments Eosinophils (%) (Auto) (test code = 713-8) 8.1 0.0-6.0 [facility] CenterAutomated blood basophil count as percentage of total bwgjsomdxs6887-92-41 00:02:00* Test Item Value Reference Range Interpretation Comments Basophils (%) (Auto) (test code = 706-2) 0.4 0.0-1.0 [facility] CenterFluoroscopic procedure less than one hour nbnsvftq2186-37-94 00:02:00* Test Item Value Reference Range Interpretation Comments IM GRANULOCYTES % (test code = IM GRANULOCYTES %) 0.3 0.0- 1.0 [facility] CenterAutomated blood neutrophil count 2020-03-31 00:02:00* Test Item Value Reference Range Interpretation Comments Neutrophils # (Auto) (test code = 751-8) 6.2 2.1-6.9 [facility] CenterBlood lymphocytes count (number/volume) 2020-03-31 00:02:00* Test Item Value Reference Range Interpretation Comments Lymphocytes # (Auto) (test code = 12088-8) 2.5 1.0-3.2 [facility] CenterBlood monocytes automated count (number/volume)2020-03-31 00:02:00* Test Item Value Reference Range Interpretation Comments Monocytes # (Auto) (test code = 742-7) 0.6 0.2-0.8 [facility] CenterAutomated blood eosinophil count 2020-03-31 00:02:00* Test Item Value Reference Range Interpretation Comments Eosinophils # (Auto) (test code = 711-2) 0.8 0.0-0.4 [facility] CenterAutomated blood basophil count (count/volume)2020-03-31 00:02:00* Test Item Value Reference Range Interpretation Comments Basophils # (Auto) (test code = 704-7) 0.0 0.0-0.1 [facility] CenterFluoroscopic procedure less than one hour dgfjvxrt1891-21-18 00:02:00* Test Item Value Reference Range Interpretation Comments Absolute Immature Granulocyte (auto (cherrie t code = Absolute Immature Granulocyte (auto) 0.03 0-0.1 [facility] Hospitalerum or plasma sodium measurement (moles/volume)2020-03-31 00:02:00* Test Item Value Reference Range Interpretation Comments Sodium Level (test code = 2951-2) 137 136-145 [facility] Hospitalerum or plasma potassium measurement (moles/volume)2020-03-31 00:02:00* Test Item Value Reference Range Interpretation Comments Potassium Level (test code = 2823-3) 4.3 3.5-5.1 [facility] Hospitalerum or plasma chloride measurement (moles/volume)2020-03-31 00:02:00* Test Item Value Reference Range Interpretation Comments Chloride Level (test code = 2075-0) 100 98-107 [facility] carbon dioxide, total measurement (moles/volume)2020-03-31 00:02:00* Test Item Value Reference Range Interpretation Comments Carbon Dioxide Level (test code = 2028-9) 25 22-29 [facility] anion [id number] 00:02:00* Test Item Value Reference Range Interpretation Comments Anion Gap (test code = 19582-6) 16.3 8-16 [facility] urea nitrogen measurement (mass/volume)2020-03-31 00:02:00* Test Item Value Reference Range Interpretation Comments Blood Urea Nitrogen (test code = 3094-0) 15 7-26 [facility] creatinine measurement (mass/volume)2020-03-31 00:02:00* Test Item Value Reference Range Interpretation Comments Creatinine (test code = 2160-0) 0.80 0.57-1.11 [facility] urea nitrogen/creatinine mass [id number] 00:02:00* Test Item Value Reference Range Interpretation Comments BUN/Creatinine Ratio (test code = 3097-3) 19 6-25 [facility] rate (GFR) [id number] 00:02:00* Test Item Value Reference Range Interpretation Comments Estimat Glomerular Filtration Rate (test code = 034955102) > 60 >60 Ranges were taken from the National Kidney Disease Education Program and the Counts include 234 beds at the [facility] Kidney Foundation literature.Reference ranges:60 or greater: Muqgam05-08 ( for 3 consecutive months): Chronic kidney disease 15 or less: Kidney failureEn[facility] CenterGlucose [id number] 00:02:00* Test Item Value Reference Range Interpretation Comments Glucose Level (test code = CTN7345) 110 74-118 [facility] calcium measurement (mass/volume)2020-03-31 00:02:00* Test Item Value Reference Range Interpretation Comments Calcium Level (test code = 85849-8) 9.5 8.4-10.2 [facility] total bilirubin measurement (mass/volume)2020-03-31 00:02:00* Test Item Value Reference Range Interpretation Comments Total Bilirubin (test code = 1975-2) 0.2 0.2-1.2 [facility] CenterFluoroscopic procedure less than one hour [id number] 00:02:00* Test Item Value Reference Range Interpretation Comments Aspartate Amino Transf (AST/SGOT) (test code = Aspartate Amino Transf (AST/SGOT)) 12 5-34 [facility] alanine aminotransferase measurement (enzymatic activity/volume)2020-03-31 00:02:00* Test Item Value Reference Range Interpretation Comments Alanine Aminotransferase (ALT/SGPT) (test code = 1742-6) 15 0-55 [facility] protein measurement (mass/volume)2020-03-31 00:02:00* Test Item Value Reference Range Interpretation Comments Total Protein (test code = 2885-2) 7.5 6.5-8.1 [facility] albumin measurement (mass/volume)2020-03-31 00:02:00* Test Item Value Reference Range Interpretation Comments Albumin (test code = 1751-7) 3.8 3.5-5.0 [facility] CenterPlasma globulin measurement (mass/volume) 2020-03-31 00:02:00* Test Item Value Reference Range Interpretation Comments Globulin (test code = 12992-6) 3.7 2.3-3.5 [facility] albumin/globulin mass [id number] 00:02:00* Test Item Value Reference Range Interpretation Comments Albumin/Globulin Ratio (test code = 1759-0) 1.0 0.8-2.0 [facility] alkaline phosphatase measurement (enzymatic activity/volume)2020-03-31 00:02:00* Test Item Value Reference Range Interpretation Comments Alkaline Phosphatase (test code = 6768-6) 83 40-150 [facility] creatine kinase measurement (enzymatic activity/volume)2020-03-31 00:02:00* Test Item Value Reference Range Interpretation Comments Creatine Kinase (test code = 2157-6) 105 29-168 [facility] creatine kinase MB measurement (mass/volume)2020-03-31 00:02:00* Test Item Value Reference Range Interpretation Comments Creatine Kinase MB (test code = 91479-4) 2.20 0-5.0 [facility] CenterTroponin I measurement by highly sensitive enzyme [id number] 00:02:00* Test Item Value Reference Range Interpretation Comments Troponin I (test code = 51307-9) < 0.001 0-0.300 [facility]
--- OUTSIDE RECORDS SUMMARY | 2020-05-09 17:17 | XMS REPORT | Clinical Summary ---
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 PART A [address] B resent [id number] [place] [address] CALLES MEDICARE OPTIONS CALLES xxxxxxxxxxxx 2015-P [employer] HMO DUAL resent [id number] [employer] [address] [address] [place] [address] (Work)
[2020-05-09] MEDS ORDERED: SODIUM CHLORIDE 0.9% 1000ML 1,000 ML IV STA (17:25)
[2020-05-09 17:58] LABS: BASOPHILS % 0.5 % (0.0-1.0); EOSINOPHILS # (AUTO) 0.1 (0.0-0.4); EOSINOPHILS % 1.4 % (0.0-6.0); HEMOGLOBIN 11.9 g/dL (12.0-16.0); LYMPHOCYTES # (AUTO) 1.7 (1.0-3.2); LYMPHOCYTES % 19.7 % (18.0-39.1); MEAN CORPUSCULAR HEMOGLOBIN 28.5 pg (28-32); MEAN CORPUSCULAR VOLUME 83.9 fL (81-99); MONOCYTES # (AUTO) 0.6 (0.2-0.8); MONOCYTES % 6.9 % (4.4-11.3); NEUTROPHILS % 70.7 % (38.7-80.0); PLATELET COUNT 341 x10e3/uL (140-360); RED BLOOD COUNT 4.17 x10e6/uL (3.6-5.1); RED CELL DISTRIBUTION WIDTH 12.7 % (11.7-14.4)
[2020-05-09 18:16] LABS: ALANINE AMINOTRANSFERASE 17 IU/L (0-55); ALBUMIN 4.1 g/dL (3.5-5.0); ALBUMIN/GLOBULIN RATIO 1.1 (0.8-2.0); ALKALINE PHOSPHATASE 94 IU/L (40-150); AMYLASE 144 U/L (25-125); ANION GAP 17.3 mmol/L (8-16); BLOOD UREA NITROGEN 8 mg/dL (7-26); BUN/CREATININE RATIO 10 (6-25); CALCIUM 9.3 mg/dL (8.4-10.2); CARBON DIOXIDE 26 mmol/L (22-29); CHLORIDE 87 mmol/L (98-107); CREATINE KINASE 125 IU/L (29-168); CREATININE, SERUM 0.84 mg/dL (0.57-1.11); EST GLOMERULAR FILTRATION RATE > 60 ML/MIN (60-); GLUCOSE 108 mg/dL (74-118); LIPASE 38 U/L (8-78); MAGNESIUM 1.8 MG/DL (1.3-2.1); POTASSIUM 4.3 mmol/L (3.5-5.1); SODIUM 126 mmol/L (136-145)
[2020-05-09] MEDS: MORPHINE SULFATE INJ 4 MG/ML INJ 1ML IV PRN ×2 (18:30→18:43)
[2020-05-09] MEDS: ONDANSETRON HCL INJ 2MG/ML 2ML 2 MG/ML VIAL IV ONE ×2 (18:30→18:43)
[2020-05-09 18:31] LABS: BILIRUBIN,URINE NEGATIVE (NEGATIVE); CLARITY,URINE CLEAR (CLEAR); COLOR,URINE COLORLESS (YELLOW); INR 0.91; KETONES,URINE NEGATIVE (NEGATIVE); LEUKOCYTE ESTERASE ,URINE NEGATIVE (NEGATIVE); NITRITE,URINE NEGATIVE (NEGATIVE); PROTEIN,URINE DIPSTICK NEGATIVE (NEGATIVE); PROTHROMBIN TIME 12.7 seconds (11.9-14.5); URINE UROBILINOGEN 0.2 mg/dL (0.2 - 1)
[2020-05-09 18:32] LABS: BACTERIA,URINE MODERATE /HPF; EPITHELIAL CELLS,URINE MODERATE /LPF; PARTIAL THROMBOPLASTIN TIME 29.9 seconds (23.8-35.5)
[2020-05-09] MEDS ORDERED: SODIUM CHLORIDE 0.9% 50ML 50 ML ONE (18:44)
[2020-05-09] MEDS ORDERED: IOPAMIDOL 370 MG/ML 200 ML INFUS..BTL INJ ONE (18:44)
--- NOTE | 2020-05-09 18:46 | Emergency Department Note ---
History of Present Illnes History of Present Illness Chief Complaint: General Medicine Complaints History of Present Illness This is a 80 year old female arrives to the ED of the right upper quadrant abdominal pain for several days. Patient states she had one episode of yellow vomitus which prompted her to come to the ER. Patient states earlier her pain was 10 out of 10 but has since resolved. Historian: Patient Arrival Mode: Car Radiation: Reports back Severity: mild Onset quality: gradual Duration (how long): day(s) Timing of current episode: intermittent Progression: worsening Relieving factors: none Associated symptoms: Reports loss of appetite, Reports nausea/vomiting Past Medical/Family History Physician Review I have reviewed the patient's past medical and family history. Any updates have been documented here. Past Medical History Recent Fever: No Clinical Suspicion of Infectio: No New/Unexplained Change in Ment: No Past Medical History: Hypertension, Diabetes, GERD, Hyperlipedemia Past Surgical History: Hysterectomy Social History Smoking Cessation: Never Smoker Counseling Performed: No Alcohol Use: None Any Illegal Drug Use: No Other Any Pre-Existing Lines (PICC,: No Review of Systems Review of Systems Constitutional: Reports no symptoms EENTM: Reports no symptoms Cardiovascular: Reports no symptoms Respiratory: Reports no symptoms Gastrointestinal: Reports as per HPI, Reports abdominal pain, Reports nausea, Reports vomiting Genitourinary: Reports no symptoms Musculoskeletal: Reports no symptoms Integumentary: Reports no symptoms Neurological: Reports no symptoms Psychological: Reports no symptoms Endocrine: Reports no symptoms Hematological/Lymphatic: Reports no symptoms Review of other systems: All other systems negative Physical Exam Related Data Allergies: Coded Allergies: Penicillins (Verified Allergy, Intermediate, 03/31/20) influenza virus vaccine, specific (Verified Allergy, Unknown, 05/09/20) Uncoded Allergies: FLU SHOT (Allergy, Unknown, 05/09/20) Triage Vital Signs Vital Signs Date Time Temp Pulse Resp B/P (MAP) Pulse Ox O2 Delivery O2 Flow Rate FiO2 05/09/20 17:08 98.1 81 18 152/60 99 Room Air Vital signs reviewed: Yes Physical Exam CONSTITUTIONAL Constitutional: Present well-developed, Present well-nourished, Present obese HENT HENT: Present normocephalic, Present atraumatic, Present oropharynx clear/moist, Present nose normal HENT L/R: Present left ext ear normal, Present right ext ear normal EYES Eyes: Reports PERRL, Reports conjunctivae normal NECK Neck: Present ROM normal PULMONARY Pulmonary: Present effort normal, Present breath sounds normal CARDIOVASCULAR Cardiovascular: Present regular rhythm, Present heart sounds normal, Present capillary refill normal, Present normal rate GASTROINTESTINAL Abdominal: Present soft, Present bowel sounds normal, Present tender GENITOURINARY Genitourinary: Present exam deferred SKIN Skin: Present warm, Present dry MUSCULOSKELETAL Musculoskeletal: Present ROM normal NEUROLOGICAL Neurological: Present alert, Present oriented x 3, Present no gross motor or sensory deficits PSYCHOLOGICAL Psychological: Present mood/affect normal, Present judgement normal Results Laboratory Result Diagram: 05/09/20172905/09/201729 Laboratory Laboratory Tests Test 05/09/20 17:30 White Blood Count 8.43 x10e3/uL (4.8-10.8) Red Blood Count 4.17 x10e6/uL (3.6-5.1) Hemoglobin 11.9 g/dL (12.0-16.0) Hematocrit 35.0 % (34.2-44.1) Mean Corpuscular Volume 83.9 fL (81-99) Mean Corpuscular Hemoglobin 28.5 pg (28-32) Mean Corpuscular Hemoglobin Concent 34.0 g/dL (31-35) Red Cell Distribution Width 12.7 % (11.7-14.4) Platelet Count 341 x10e3/uL (140-360) Neutrophils (%) (Auto) 70.7 % (38.7-80.0) Lymphocytes (%) (Auto) 19.7 % (18.0-39.1) Monocytes (%) (Auto) 6.9 % (4.4-11.3) Eosinophils (%) (Auto) 1.4 % (0.0-6.0) Basophils (%) (Auto) 0.5 % (0.0-1.0) Neutrophils # (Auto) 6.0 (2.1-6.9) Lymphocytes # (Auto) 1.7 (1.0-3.2) Monocytes # (Auto) 0.6 (0.2-0.8) Eosinophils # (Auto) 0.1 (0.0-0.4) Basophils # (Auto) 0.0 (0.0-0.1) Absolute Immature Granulocyte (auto 0.07 x10e3/uL (0-0.1) Sodium Level 126 mmol/L (136-145) Potassium Level 4.3 mmol/L (3.5-5.1) Chloride Level 87 mmol/L (98-107) Carbon Dioxide Level 26 mmol/L (22-29) Anion Gap 17.3 mmol/L (8-16) Blood Urea Nitrogen 8 mg/dL (7-26) Creatinine 0.84 mg/dL (0.57-1.11) Estimat Glomerular Filtration Rate > 60 ML/MIN (60-) BUN/Creatinine Ratio 10 (6-25) Glucose Level 108 mg/dL (74-118) Calcium Level 9.3 mg/dL (8.4-10.2) Magnesium Level 1.8 MG/DL (1.3-2.1) Total Bilirubin 0.3 mg/dL (0.2-1.2) Aspartate Amino Transf (AST/SGOT) 17 IU/L (5-34) Alanine Aminotransferase (ALT/SGPT) 17 IU/L (0-55) Alkaline Phosphatase 94 IU/L (40-150) Creatine Kinase 125 IU/L (29-168) Troponin I 0.001 ng/mL (0-0.300) Total Protein 7.8 g/dL (6.5-8.1) Albumin 4.1 g/dL (3.5-5.0) Globulin 3.7 g/dL (2.3-3.5) Albumin/Globulin Ratio 1.1 (0.8-2.0) Amylase Level 144 U/L (25-125) Lipase 38 U/L (8-78) Lab results reviewed: Yes Imaging Imaging results reviewed: Yes Impressions IMPRESSION: 1. Small sliding gastric hiatal hernia. 2. Colonic diverticulosis without diverticulitis. 3. A 0.9 cm calcified nodule in the right breast. Recommend referral to dedicated breast imaging center. Signed by: Dustin Piper DO on 05/09/2020 7:50 PM Procedures 12 Lead ECG Interpretation ECG Interpretation : ECG: ECG 1 Prior ECG tracings: reviewed Rhythm: sinus rhythm Rate: normal ST segments normal: Yes T wave inversion: I Clinical Impression: non-specific ECG Assessment & Plan Medical Decision Making MDM 80-year-old female arrives to the ED with right upper quadrant and right flank pain. Early urinary tract infection noted. Patient's lab work and CT scan otherwise unremarkable. Patient also complained of an ear infection. Mild otitis externa noted. Patient discharged home on antibiotics. Assessment & Plan Final Impression: (1) Urinary tract infection (2) Otitis externa Depart Disposition: HOME, SELF-CARE Last Vital Signs Date Time Temp Pulse Resp B/P (MAP) Pulse Ox O2 Delivery O2 Flow Rate FiO2 05/09/20 18:18 98.5 71 20 140/63 100 Room Air Home Meds Active Scripts Lidocaine/Menthol (LIDOPATCH) 1 Each Adh..patch, 1 PATCH TOP DAILY, #14 PATCH Prov:ELBA HOOVER, DO 05/09/20 Sulfamethoxazole/Trimethoprim (BACTRIM DS TABLET) 1 Each Tablet, 1 TAB PO BID, #20 TAB 0 Refills Prov:CELESTINERELBA, DO 05/09/20 Tramadol Hcl (ULTRAM) 50 Mg Tablet, 50 MG PO Q6HR PRN for Mild Pain (1-3) or Fever>100.8, #12 TAB Prov:ELBA HOOVER, DO 05/09/20 Reported Medications Loperamide Hcl (LOPERAMIDE) 2 Mg Tablet, 2 MG PO Q6H PRN for DIARRHEA, CAP 05/03/20 Clonidine Hcl (CLONIDINE HCL) 0.1 Mg Tablet, 1 TAB PO HS, #60 TAB 05/01/20 Loratadine (LORATADINE) 10 Mg Tablet, 10 MG PO DAILY, #30 TAB 05/01/20 Amlodipine Besylate (NORVASC) 10 Mg Tab, 10 MG PO DAILY, TAB 05/01/20 Omeprazole (OMEPRAZOLE) 20 Mg Capsule.dr, 20 MG PO DAILY 05/01/20 Metformin Hcl (METFORMIN HCL) 500 Mg Tablet, 1000 MG PO, #60 TAB 05/01/20 Simvastatin (SIMVASTATIN) 20 Mg Tablet, 40 MG PO HS, EA 05/01/20 Losartan Potassium (LOSARTAN POTASSIUM) 25 Mg Tablet, 12.5 MG PO DAILY 05/01/20 Diphenhydramine Hcl (BENADRYL) 25 Mg Capsule, PO PRN for ALLERGY 05/01/20 Discontinued Reported Medications Levofloxacin (LEVOFLOXACIN) 500 Mg Tablet, 500 MG PO DAILY for 10 Days 05/01/20 Medications in the ED Sodium Chloride 1,000 ml @ 0 mls/hr Q0M STAT IV Last administered on 05/09/20at 18:17; Admin Dose 999 MLS/HR; Start 05/09/20 at 17:25; Stop 05/09/20 at 17:26 ELBA HOOVER DO May 09, 2020 18:46
--- NOTE | 2020-05-09 18:51 | Diagnostic Imaging Report ---
EXAMINATION: CHEST SINGLE (PORTABLE) INDICATION: ACHY ALL OVER COMPARISON: Chest radiograph 04-30-2020. FINDINGS: TUBES and LINES: None. LUNGS: Lungs are well inflated. Mild patchy bibasilar opacities. No evidence of lobar consolidation or pulmonary edema. PLEURA: No pleural effusion or pneumothorax. HEART AND MEDIASTINUM: The cardiomediastinal silhouette is unremarkable. There are atherosclerotic calcifications within the aorta. BONES AND SOFT TISSUES: No acute osseous lesion. Soft tissues are unremarkable. UPPER ABDOMEN: No free air under the diaphragm. IMPRESSION: Mild patchy bibasilar opacities, more likely atelectasis than infection. No evidence of lobar pneumonia. Signed by: Dr. Ruiz Mohan MD on 05/09/2020 6:47 PM
--- NOTE | 2020-05-09 19:53 | Diagnostic Imaging Report ---
EXAM: CT Abdomen and Pelvis WITH contrast INDICATION: Right upper quadrant pain COMPARISON: Abdominal CT 04/30/2020 TECHNIQUE: Abdomen and pelvis were scanned utilizing a multidetector helical scanner from the lung base to the pubic symphysis after administration of IV contrast. Coronal and sagittal reformations were obtained. Routine protocol was performed. Scan was performed when during portal venous phase. IV CONTRAST: 100 mL of Isovue 370 ORAL CONTRAST: None COMPLICATIONS: None RADIATION DOSE: Total DLP: 556 mGy*cm Estimated effective dose: (DLP x 0.015 x size factor) mSv CTDIvol has been reviewed. It is below the limits set by the Radiation Protocol Committee (RPC). Dose modulation, iterative reconstruction, and/or weight based adjustment of the mA/kV was utilized to reduce the radiation dose to as low as reasonably achievable. FINDINGS: LINES and TUBES: None. LOWER THORAX: Mitral annular calcifications. HEPATOBILIARY: No focal hepatic lesions. No biliary ductal dilation. GALLBLADDER: No radio-opaque stones or sludge. No wall thickening. SPLEEN: No splenomegaly. PANCREAS: No focal masses or ductal dilatation. ADRENALS: No adrenal nodules KIDNEYS/URETERS: Kidneys enhance symmetrically. No hydronephrosis. No cystic or solid mass lesions. No stones. GI TRACT: No abnormal distention, wall thickening, or evidence of bowel obstruction. Appendix is normal. Colonic diverticuli. Small sliding gastric hiatal hernia. PELVIC ORGANS/BLADDER: Hysterectomy. No adnexal masses. Urinary bladder unremarkable. LYMPH NODES: No lymphadenopathy. VESSELS: Arterial calcifications and plaques. PERITONEUM / RETROPERITONEUM: No free air or fluid. BONES: Degenerative changes. SOFT TISSUES: A 0.9 cm calcified nodule in the right breast.. IMPRESSION: 1. Small sliding gastric hiatal hernia. 2. Colonic diverticulosis without diverticulitis. 3. A 0.9 cm calcified nodule in the right breast. Recommend referral to dedicated breast imaging center. Signed by: Dustin Piper DO on 05/09/2020 7:50 PM
[2020-05-09] MEDS ORDERED: HYDROCODONE/APAP 10MG-325MG TAB PO ONE (20:15)
[2020-05-09] MEDS ORDERED: BACTRIM DS TAB1 EACH PO (20:16)
[2020-05-09] MEDS ORDERED: LIDOPATCH1 EACH TOP (20:16)
[2020-05-09] MEDS ORDERED: ULTRAM50 MG PO (20:16)
[2020-05-10] MEDS ORDERED: LIDOCAINE 4% PATCH TP SCH (09:00)
== END 2020-05-09 21:00 | disposition home or self-care (01) ==
LOC: ER 17:15
DX: R10.11 Right upper quadrant pain (principal); N39.0 Urinary tract infection, site not specified; H60.93 Unspecified otitis externa, bilateral; R11.2 Nausea with vomiting, unspecified; I10 Essential (primary) hypertension; E11.9 Type 2 diabetes mellitus without complications; E78.5 Hyperlipidemia, unspecified; K21.9 Gastro-esophageal reflux disease without esophagitis; Z11.59 Encounter for screening for other viral diseases
CPT/HCPCS: 36415; 71045; 74177; 80053; 81001; 82150; 82550; 82553; 83690; 83735; 84484; 85025; 85610; 85730; 87086; 93005; 99284; U0002

== ENCOUNTER 2020-05-23 20:52 | Emergency (ER) | payer MEDICARE, OTHER ==
[~2020-05-23] VITALS: Ht 165.1 cm; Wt 72.6 kg
[~2020-05-23 20:52] MED LIST changes: +BACTRIM DS TAB1 EACH PO; +LIDOPATCH1 EACH TOP; +ULTRAM50 MG PO
--- OUTSIDE RECORDS SUMMARY | 2020-05-23 22:17 | XMS REPORT | Clinical Summary ---
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 PART A & B resent [id number] [place] [address] CALLES MEDICARE OPTIONS CALLES xxxxxxxxxxxx 2015-P [employer] HMO DUAL resent [id number] [employer] [address] [address] [place] [address] (Work)
--- OUTSIDE RECORDS SUMMARY | 2020-05-23 22:18 | XMS REPORT | Continuity of Care Document ---
Author Author [facility] t Organization [facility] Address [address] [place] [address] Phone Unavailable Care Team Providers Care Curing Room Supervisor Name Role Phone MD Stephanie RODRÍGUEZ PCP Viviane SHANE Attphys Unavailable Viviane HOOVER Attphys Unavailable Luciana MCLAUGHLIN Attphys Unavailable Viviane SHANE Admphys Unavailable Payers Payer Name Policy Type Policy Number Effective Date Expiration Date Viviane Landers Medicare [id number] 2015 00:00:00 [facility] [employer] [id number] 2015 00:00:00 [facility] Cdc Review Covid19 [id number] [facility] Problems Condition Name Condition Details Condition Category Status Onset Date Resolution Date Last Treatment Date Treating Clinician Comments Source Mass on back Mass on back Disease Active 2017-10-15 00:00:00 [facility] Chest pain Problem Active [facility] Hyponatremia Problem Active [facility] Neuropathy Problem Active [facility] Gastritis Problem Active [facility] Abdominal pain Problem Active [facility] Diarrhea Problem Active [facility] Allergies, Adverse Reactions, Alerts Allergy Name Allergy Type Status Severity Reaction(s) Onset Date Inacti ve Date Treating Clinician Comments Source Penicillin Allergy to substance Active Moderate 2020-05-11 00:00:0 0 [facility] influenza virus vaccine, specific Allergy to substance Active 2020-05-09 00:00:00 [facility] FLU SHOT Allergy to substance Active 2020-05-09 00:00:00 [facility] Penicillin Allergy to substance Active Moderate 2020-03-31 00:00:0 0 [facility] Penicillin Propensity to adverse reactions to drug Active Rash, Swelling 2016-07-22 00:00:00 Chidi oliveira Social History Social Habit Start Date Stop Date Quantity Comments Source Sex Assigned At [facility] Alcohol intake 2016-07-22 00:00:00 2016-07-22 00:00:00 Current non-drinker of alcohol (finding) [facility] Smoking Status Start Date Stop Date Source Never smoker [facility] Medications Ordered Medication Name Filled Medication Name Start Date Stop Da te Current Medication? Ordering Clinician Indication Dosage Frequency Signature (SIG) Comments Components Source Lidocaine/Menthol (Lidopatch) 1 Each ADH..PATCH Lidoca ine/Menthol (Lidopatch) 1 Each ADH..PATCH 2020-05-09 20:16:00 Yes 1 Daily [facility] Sulfamethoxazole/Trimethoprim (Bactrim Ds Tablet) 1 Ea ch TABLET Sulfamethoxazole/Trimethoprim (Bactrim Ds Tablet) 1 Each TABLET 2020-05-09 20:16:00 Yes 1 Twice A Day [facility] Tramadol Hcl (Ultram) 50 Mg TABLET Tramadol Hcl (Ultram) 50 Mg TABLET 2020-05-09 20:16:00 Yes 50 Every 6 Ho urs as needed for Mild Pain (1-3) Or Fever>100.8 [facility] ibuprofen (MOTRIN) 800 mg tablet 2016-07-22 00:00:00 Yes Pain, dental 800mg Take 1 tablet by mouth every 8 hours as needed for Pain (take with food). [facility] gabapentin (NEURONTIN) 300 mg capsule 2011-05-02 00:00:00 Yes Renal colic 300mg Take 1 Cap by mouth daily before a meal. [facility] Amlodipine Besylate Amlodipine Besylate Yes 10 Daily [facility] Losartan Potassium Losartan Potassium Yes 100 Da clary [facility] Metformin Hcl Metformin Hcl Yes 1000 Twice A Day [facility] Metoprolol Succinate Metoprolol Succinate Yes 25 Daily [facility] Omeprazole Omeprazole Yes 20 Every Morning [facility] Ondansetron Hcl (Zofran) 8 Mg TABLET Ondansetron Hcl (Zofran) 8 Mg TABLET Yes 8 Every 4 Hours as needed for Nausea [facility] Pantoprazole Sodium (Protonix) 40 Mg TABLET. Pantopr azole Sodium (Protonix) 40 Mg TABLET. Yes 40 Daily [facility] Simvastatin Simvastatin Yes 40 Today At 9:00PM [facility] Sucralfate Sucralfate Yes 1 Three Times A Day [facility] Amlodipine Besylate (Norvasc) 10 Mg TAB Amlodipine Besylate (Norvasc) 10 Mg TAB Yes 10 Daily [facility] Clonidine Hcl Clonidine Hcl Yes 1 Bedtime [facility] Diphenhydramine Hcl (Benadryl) 25 Mg CAPSULE Diphenhyd ramine Hcl (Benadryl) 25 Mg CAPSULE Yes as needed for Allergy [facility] Loperamide Hcl (Loperamide) 2 Mg TABLET Loperamide Hcl (Coy ramide) 2 Mg TABLET Yes 2 Every 6 Hours as needed for Sara rrhea [facility] Loratadine Loratadine Yes 10 Daily [facility] Losartan Potassium Losartan Potassium Yes 12.5 Da clary [facility] Metformin Hcl Metformin Hcl Yes 1000 [facility] Omeprazole Omeprazole Yes 20 Daily [facility] Simvastatin Simvastatin Yes 40 Bedtime [facility] Levofloxacin Levofloxacin 2020-05-02 00:00:00 No 500 Daily [facility] Apixaban (Eliquis) 2.5 Mg TABLET Apixaban (Eliquis) 2.5 Mg TABLE T 2020-05-01 00:00:00 No [facility] Metoprolol Tartrate (Lopressor) 25 Mg TAB Metoprolol T artrate (Lopressor) 25 Mg TAB 2020-05-01 00:00:00 No Daily [facility] Vital Signs Vital Name Observation Time Observation Value Comments Source Body Temperature 2020-05-17 16:46:00 98.3 [degF] [facility] BMI (Body Mass Index) 2020-05-12 00:54:00 32.0 kg/m2 [facility] Weight 2020-05-11 19:59:00 164 [lb_av] [facility] Weight 2020-05-09 17:08:00 160 [lb_av] [facility] BMI (Body Mass Index) 2020-05-09 17:08:00 26.6 kg/m2 [facility] Body Temperature 2020-05-03 15:57:00 98.1 [degF] [facility] Weight 2020-04-25 21:35:00 168 [lb_av] [facility] BMI (Body Mass Index) 2020-04-25 21:35:00 32.8 kg/m2 [facility] Body Temperature 2020-03-31 01:33:00 98.4 [degF] [facility] Weight 2020-03-30 23:56:00 168 [lb_av] [facility] BMI (Body Mass Index) 2020-03-30 23:56:00 32.8 kg/m2 [facility] Procedures Procedure Date / Time Performed Performing Clinician [facility] e US Abdomen limited 2020-05-13 00:00:00 [facility] CT of abdomen and pelvis without contrast 2020-05-12 00:00:00 [facility] Computed tomography of abdomen and pelvis with contrast 00:00:00 [facility] Computed tomography of abdomen and pelvis with contrast 00:00:00 [facility] Computed tomography of abdomen and pelvis with contrast 00:00:00 [facility] US Gallbladder 2020-04-25 00:00:00 [facility] Computed tomography of brain without radiopaque contrast 2020-03 00:00:00 [facility] Plan of Care Planned Activity Planned Date Details Comments Source Future Scheduled Test 2020-06-18 00:00:00 IMM Influenza Seas onal Jun to November (>/= 19 yrs) [code = IMM Influenza Seasonal Jun to November (>/= 19 yrs)] [facility] Future Scheduled Test 2006 00:00:00 IMM Pneumococcal A ge 65 and Up [code = IMM Pneumococcal Age 65 and Up] [facility] Instructions Chest Pain - Chest Wall [facility] Instructions Hyponatremia [facility] Instructions Back Pain [facility] Instructions Urinary Tract Infection - Women [facility] Encounters Start Date/Time End Date/Time Encounter Type Admission Type [facility] Care Department Encounter ID Source 2020-05-13 08:42:00 2020-05-17 18:16:00 Discharged Inpatient 1 KIYA SHANE [facility] [id number] [facility] 2020-05-09 17:15:00 2020-05-09 17:15:00 Registered Emergency Room 1 [facility] [id number] [facility] 2020-04-30 12:00:00 2020-05-03 18:20:00 Discharged Inpatient [facility] [id number] [facility] 2020-04-25 21:49:00 2020-04-25 23:58:00 Departed Emergency Room BAUTISTA MCLAUGHLIN [facility] [id number] [facility] 2020-03-31 01:00:00 2020-03-31 01:45:00 Departed Emergency Room KIKO [facility] [id number] [facility] 2019-07-16 10:36:00 2019-07-16 10:36:00 Emergency E [facility] [id number] [facility] 2018-09-07 20:09:00 2018-09-07 20:09:00 Emergency E [id number] [facility] 2017-10-15 17:12:18 2017-10-15 17:12:18 Emergency [facility] [id number] [facility] Results Test Description Test Time Test Comments Results Result Comments Source Blood leukocytes automated count (number/volume) 2020-05-16 04:50:00 Test Item White Blood Count (test code = 6690-2) 7.57 4.8-10.8 [facility] automated count (number/volume)2020-05-16 04:50:00* Test Item Value Reference Range Interpretation Comments Red Blood Count (test code = 789-8) 4.16 3.6-5.1 [facility] hemoglobin measurement (moles/volume)2020-05-16 04:50:00* Test Item Value Reference Range Interpretation Comments Hemoglobin (test code = 53101-6) 11.7 12.0-16.0 [facility] blood hematocrit (volume fraction)2020-05-16 04:50:00* Test Item Value Reference Range Interpretation Comments Hematocrit (test code = 4544-3) 36.2 34.2-44.1 [facility] erythrocyte mean corpuscular [id number] 04:50:00* Test Item Value Reference Range Interpretation Comments Mean Corpuscular Volume (test code = 787-2) 87.0 81-99 [facility] erythrocyte mean corpuscular hemoglobin (mass per erythrocyte)2020-05-16 04:50:00* Test Item Value Reference Range Interpretation Comments Mean Corpuscular Hemoglobin (test code = 785-6) 28.1 28-32 [facility] erythrocyte mean corpuscular hemoglobin concentration measurement (mass/volume)2020-05-16 04:50:00* Test Item Value Reference Range Interpretation Comments Mean Corpuscular Hemoglobin Concent (test code = 786-4) 32.3 31-35 [facility] HospitalRDW [id number] 04:50:00* Test Item Value Reference Range Interpretation Comments Red Cell Distribution Width (test code = 74550-7) 13.4 11.7 -14.4 [facility] blood platelet count (count/volume)2020-05-16 04:50:00* Test Item Value Reference Range Interpretation Comments Platelet Count (test code = 777-3) 315 140-360 [facility] blood segmented neutrophil count as percentage of total qxdxgoddkw2770-64-18 04:50:00* Test Item Value Reference Range Interpretation Comments Neutrophils (%) (Auto) (test code = 39382-8) 54.6 38.7-80.0 [facility] blood lymphocyte count as percentage ot total tgaqqtuqji2794-42-14 04:50:00* Test Item Value Reference Range Interpretation Comments Lymphocytes (%) (Auto) (test code = 736-9) 28.3 18.0-39.1 [facility] blood monocyte count as percentage of total iuefzomnyk3371-61-08 04:50:00* Test Item Value Reference Range Interpretation Comments Monocytes (%) (Auto) (test code = 5905-5) 7.0 4.4-11.3 [facility] HospitalAutatrium healthed blood eosinophil count as percentage of total ixfvrlzabg6780-44-61 04:50:00* Test Item Value Reference Range Interpretation Comments Eosinophils (%) (Auto) (test code = 713-8) 9.0 0.0-6.0 [facility] Hospital[facility] blood basophil count as percentage of total dbvujojofy8431-01-90 04:50:00* Test Item Value Reference Range Interpretation Comments Basophils (%) (Auto) (test code = 706-2) 0.8 0.0-1.0 [facility] HospitalFluoroscopic procedure less than one hour irlwnhxd3870-90-30 04:50:00* Test Item Value Reference Range Interpretation Comments IM GRANULOCYTES % (test code = IM GRANULOCYTES %) 0.3 0.0- 1.0 [facility] Hospital[facility] blood neutrophil count 2020-05-16 04:50:00* Test Item Value Reference Range Interpretation Comments Neutrophils # (Auto) (test code = 751-8) 4.1 2.1-6.9 [facility] lymphocytes count (number/volume) 2020-05-16 04:50:00* Test Item Value Reference Range Interpretation Comments Lymphocytes # (Auto) (test code = 37646-3) 2.1 1.0-3.2 [facility] monocytes automated count (number/volume)2020-05-16 04:50:00* Test Item Value Reference Range Interpretation Comments Monocytes # (Auto) (test code = 742-7) 0.5 0.2-0.8 [facility] Hospital[facility] blood eosinophil count 2020-05-16 04:50:00* Test Item Value Reference Range Interpretation Comments Eosinophils # (Auto) (test code = 711-2) 0.7 0.0-0.4 [facility] HospitalAutom[facility] blood basophil count (count/volume)2020-05-16 04:50:00* Test Item Value Reference Range Interpretation Comments Basophils # (Auto) (test code = 704-7) 0.1 0.0-0.1 [facility] HospitalFluoroscopic procedure less than one hour [id number] 04:50:00* Test Item Value Reference Range Interpretation Comments Absolute Immature Granulocyte (auto (cherrie t code = Absolute Immature Granulocyte (auto) 0.02 0-0.1 [facility] sodium measurement (moles/volume)2020-05-16 04:50:00* Test Item Value Reference Range Interpretation Comments Sodium Level (test code = 2951-2) 137 136-145 [facility] or plasma potassium measurement (moles/volume)2020-05-16 04:50:00* Test Item Value Reference Range Interpretation Comments Potassium Level (test code = 2823-3) 4.2 3.5-5.1 [facility] or plasma chloride measurement (moles/volume)2020-05-16 04:50:00* Test Item Value Reference Range Interpretation Comments Chloride Level (test code = 2075-0) 101 98-107 [facility] or plasma carbon dioxide, total measurement (moles/volume)2020-05-16 04:50:00* Test Item Value Reference Range Interpretation Comments Carbon Dioxide Level (test code = 2028-9) 26 - [facility] or plasma anion [id number] 04:50:00* Test Item Value Reference Range Interpretation Comments Anion Gap (test code = 02580-7) 14.2 8-16 [facility] or plasma urea nitrogen measurement (mass/volume)2020-05-16 04:50:00* Test Item Value Reference Range Interpretation Comments Blood Urea Nitrogen (test code = 3094-0) 6 7- [facility] or plasma creatinine measurement (mass/volume)2020-05-16 04:50:00* Test Item Value Reference Range Interpretation Comments Creatinine (test code = 2160-0) 0.73 0.57-1.11 [facility] or plasma urea nitrogen/creatinine mass saybm1331-07-72 04:50:00* Test Item Value Reference Range Interpretation Comments BUN/Creatinine Ratio (test code = 3097-3) 8 - [facility] HospitalEstimated glomerular filtration rate (GFR) hjirfbficskgk9342-94-13 04:50:00* Test Item Value Reference Range Interpretation Comments Estimat Glomerular Filtration Rate (test code = 024217137) > 60 >60 Ranges were taken from the National Kidney Disease Education Program and the [facility] Foundation literature.Reference ranges:60 or greater: Yakeay19-17 ( for 3 consecutive months): Chronic kidney disease 15 or less: Kidney failureMemorial Hermann Cypress HospitalGlucose ezkytsxszev4430-55-70 04:50:00* Test Item Value Reference Range Interpretation Comments Glucose Level (test code = HBJ2904) 101 74-118 [facility] or plasma calcium measurement (mass/volume)2020-05-16 04:50:00* Test Item Value Reference Range Interpretation Comments Calcium Level (test code = 84078-7) 9.0 8.4-10.2 [facility] HospitalCapillary blood glucose measurement by glucometer (mass/volume)2020-05-14 20:17:00* Test Item Value Reference Range Interpretation Comments Bedside Glucose (test code = 04145-9) 79 70-120 Meter ID: [id number] [facility] 2020-05-13 18:28:00 [place] [address] Patient Name: TRELL BURROWS MR #: [id number] : 1940 Age/Sex: 80/F Req #: [id number] Adm Physician: KIYA SHANE MD Ordered by: CLINTON GOMEZ MD Report #: [id number] Location: MED/SURG Room/Bed: [facility] Procedure: [id number] NM/HEPTOBILIARY W PHARM Exam Date: 05/13/20 Exam Time: 1615 REPORT STATUS: Signed Hepatobiliary Scan with Gallbladder Ejection Fraction Clinical information: Abdominal pain Technique: Following intravenous administration of 6.6 millicuries of Tc-99m mebrofenin, dynamic images of the abdomen in the anterior projection were o btained through 60 minutes. Sincalide (CCK analog) 1.5 micrograms was adminis tered intravenously over 30 minutes with additional imaging for determination of gallbladder ejection fraction. Discussion: Perfusion of the liver is nor mal. Extraction of tracer by the liver parenchyma is normal. Tracer appears promptly within the biliary tract. The gallbladder begins to fill by 15 vasu cherrie post injection of tracer and fills adequately. Tracer is seen in the smal l bowel by 38 minutes. The gallbladder ejection fraction with sincalide is 6% (normal greater than 40%). Impression: 1. Filling of the gallbladder excludes acute cystic duct obstruction/acute cholecystitis. 2. 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 Signed by: Dr. Zoran Resendez M.D. on 05/13/2020 6:30 PM Dictated By: ZORAN RESENDEZ MD 29 Transcribed By: LUISA on 05/13/201829 COPY TO: CLINTON GOMEZ MD US ABDOMEN [id number] 08:58:00 [place] [address] Patient Name: TRELL BURROWS MR #: [id number] : 1940 Age/Sex: 80/F Req #: [id number] Adm Physician: KIYA SHANE MD Ordered by: KIYA SHANE MD Report #: [id number] Location: MED/SURG Room/Bed: [facility] Procedure: [id number] US/US ABDOMEN LI MITED Exam Date: 05/13/20 Exam Time: 802 REPORT STATUS: Signed EXAM: Right upper qu adrant abdominal ultrasound INDICATION: Right upper quadrant pain COMP ARISON: CT abdomen and pelvis of 05/12/2020 TECHNIQUE: Transverse and longitud inal images of the right upper quadrant abdomen were obtained FINDINGS: Liver: Size: 12.9 cm in the right midclavicular line, normal Appearanc e: Normal echogenicity, smooth contour Mass: No focal masses Gallbladder: No gallbladder distension, pericholecystic fluid, wall thickening, stone, or reported sonographic Guo's sign. Gallbladder wall measures 2 mm. Bile D ucts: Intrahepatic Ducts: No dilatation Extrahepatic Ducts: Common bile duct measures 5 mm Pancreas: Visualized portions of the pancreatic head, neck and proximal body are normal. Kidney: The right kidney measures 10.2 cm without evidence of hydronephrosis or stone. Vessels: Aorta: Visualized por tions are normal Inferior Vena Cava: Visualized portions are normal Main Por zoran Vein: 0.7 cm, normal size with hepatopetal flow. Free Fluid: No ascit es or pleural effusion IMPRESSION: No sonographic evidence of cholelithia sis or cholecystitis. Signed by: Joe Weaver MD on 05/13/2020 8:59 AM Dictated By: JOE WEAVER MD 8 Transcribed By: LUISA on 05/13/20858 COPY TO: KIYA SHANE MD Serum or plasma creatine kinase measurement (enzymatic activity/volume) 2020-05-12 17:00:00* Test Item Value Reference Range Interpretation Comments Creatine Kinase (test code = 2157-6) 155 29-168 [facility] or plasma creatine kinase MB measurement (mass/volume)2020-05-12 17:00:00* Test Item Value Reference Range Interpretation Comments Creatine Kinase MB (test code = 50663-4) 3.90 0-5.0 [facility] HospitalTroponin I measurement by highly sensitive enzyme ozxbaoyatna6089-02-01 17:00:00* Test Item Value Reference Range Interpretation Comments Troponin I (test code = 59924-3) 0.006 0-0.300 [facility] HospitalCT ABDOMEN/PELVIS [id number] 16:02:00 [place] [address] Patient Name: TRELL BURROWS MR #: [id number] : 1940 Age/Sex: 80/F Req #: [id number] Adm Physician: KIYA SHANE MD Ordered by: KIYA SHANE MD Report #: [id number] Location: MED/SURG Room/Bed: [facility] Procedure: [id number] CT/CT ABDOMEN/PE LVIS WO Exam Date: 05/12/20 Exam Time: 1510 REPORT STATUS: Signed EXAM: CT Abdomen a nd Pelvis WITHOUT intravenous contrast INDICATION: Renal calculi COM PARISON: CT abdomen and pelvis of 05/11/2020 TECHNIQUE: Abdomen and pelvis w ere scanned utilizing a multidetector helical scanner from the lung base to th e pubic symphysis without administration of IV contrast. Coronal and sagittal reformations were obtained. IV CONTRAST: None ORAL CONTRAST: Water COMPLICATIONS: None RADIATION DOSE: Total DLP: 600 mGy* cm Dose modulation, iterative reconstruction, and/or weight based adjustmen t of the mA/kV was utilized to reduce the radiation dose to as low as reasonab ly achievable. FINDINGS: LOWER THORAX: Normal. HEPATOBILIARY: No focal liver lesions. Vicarious excretion of contrast in the gallbladder. SPLEEN: No splenomegaly. PANCREAS: No focal masses or ductal dilatation. ADRENALS: No adrenal nodules. KIDNEYS/URETERS: No hydronephrosis or renal c alculi. Trace residual contrast material in the calyces. PELVIC ORGANS/BLADD ER: Contrast material in the bladder. Status post hysterectomy. PERITONEU M / RETROPERITONEUM: No free air or fluid. LYMPH NODES: No lymphadenopathy. VESSELS: Moderate atherosclerotic calcifications of the nonaneurysmal abdominal aorta and major branches. GI TRACT: No abnormal bowel thickening. No bowel obstruction. Diverticulosis without CT evidence of diverticulitis. Normal ap pendix. BONES AND SOFT TISSUES: No acute osseous injury. IMPRESSION: No acute findings in the abdomen or pelvis. Specifically, no renal calculi or hydronephrosis. Diverticulosis without CT evidence of diverticulitis. Signed by: Joe Weaver MD on 05/12/2020 4:11 PM Dictated By: JOE WEAVER MD 10 Transcribed By: SNEHA HICKEY on 05/12/201610 COPY TO: KIYA SHANE MD Urine color [id number] 16:00:00* Test Item Value Reference Range Interpretation Comments Urine Color (test code = 5778-6) YELLOW YELLOW [facility] HospitalUrine [id number] 16:00:00* Test Item Value Reference Range Interpretation Comments Urine Clarity (test code = 30823-1) SL CLOUDY CLEAR [facility]pecific gravity of Urine by Test strip 2020-05-12 16:00:00* Test Item Value Reference Range Interpretation Comments Urine Specific [place] (test code = 5811-5) 1.020 1.010-1.02 5 [facility] HospitalU[facility] pH measurement by automated test [id number] 16:00:00* Test Item Value Reference Range Interpretation Comments Urine pH (test code = 73913-4) 7 5-7 [facility] HospitalUrine leukocyte esterase detection by [id number] 16:00:00* Test Item Value Reference Range Interpretation Comments Urine Leukocyte Esterase (test code = 5799-2) NEGATIVE NEGATIVE [facility] HospitalUrine nitrite [id number] 16:00:00* Test Item Value Reference Range Interpretation Comments Urine Nitrite (test code = 78596-2) NEGATIVE NEGATIVE [facility] HospitalUrine protein measurement by test strip (mass/volume)2020-05-12 16:00:00* Test Item Value Reference Range Interpretation Comments Urine Protein (test code = 5804-0) 2+ NEGATIVE [facility] [facility] glucose ezsfhvesn2267-55-01 16:00:00* Test Item Value Reference Range Interpretation Comments Urine Glucose (UA) (test code = 2349-9) NEGATIVE NEGATIVE [facility] HospitalUrine ketones detection by automated test eitog0720-03-69 16:00:00* Test Item Value Reference Range Interpretation Comments Urine Ketones (test code = 51101-5) 2+ NEGATIVE [facility] HospitalUrine urobilinogen measurement by test strip (mass/volume)2020-05-12 16:00:00* Test Item Value Reference Range Interpretation Comments Urine Urobilinogen (test code = 51957-6) 0.2 0.2-1 [facility] HospitalUrine total bilirubin measurement (mass/volume)2020-05-12 16:00:00* Test Item Value Reference Range Interpretation Comments Urine Bilirubin (test code = 1978-6) NEGATIVE NEGATIVE [facility] HospitalUrine erythrocytes vbneyllbo6287-10-40 16:00:00* Test Item Value Reference Range Interpretation Comments Urine Blood (test code = 68925-6) MODERATE NEGATIVE [facility] HospitalAutomated urine sediment leukocyte count by microscopy (number/high power field)2020-05-12 16:00:00* Test Item Value Reference Range Interpretation Comments Urine WBC (test code = 5821-4) NONE 0-5 [facility] HospitalErythrocytes detection in urine sediment by light yyvpvgoufk4523-31-97 16:00:00* Test Item Value Reference Range Interpretation Comments Urine RBC (test code = 69106-7) 6-10 0-5 [facility] HospitalBacteria detection in urine sediment by light mqhvsrzfne0058-05-58 16:00:00* Test Item Value Reference Range Interpretation Comments Urine Bacteria (test code = 24109-2) MODERATE NONE [facility] HospitalEpithelial cells detection in urine sediment by light zceiqgufmn9959-99-03 16:00:00* Test Item Value Reference Range Interpretation Comments Urine Epithelial Cells (test code = 59943-6) FEW NONE [facility] or plasma total bilirubin measurement (mass/volume)2020-05-12 04:25:00* Test Item Value Reference Range Interpretation Comments Total Bilirubin (test code = 1975-2) 0.4 0.2-1.2 [facility] HospitalFluoroscopic procedure less than one hour tjjianfb2150-14-57 04:25:00* Test Item Value Reference Range Interpretation Comments Aspartate Amino Transf (AST/SGOT) (test code = Aspartate Amino Transf (AST/SGOT)) 16 5-34 [facility] Hospitalerum or plasma alanine aminotransferase measurement (enzymatic activity/volume)2020-05-12 04:25:00* Test Item Value Reference Range Interpretation Comments Alanine Aminotransferase (ALT/SGPT) (test code = 1742-6) 16 0-55 [facility] Hospitalerum or plasma protein measurement (mass/volume)2020-05-12 04:25:00* Test Item Value Reference Range Interpretation Comments Total Protein (test code = 2885-2) 7.3 6.5-8.1 [facility] Hospitalerum or plasma albumin measurement (mass/volume)2020-05-12 04:25:00* Test Item Value Reference Range Interpretation Comments Albumin (test code = 1751-7) 3.9 3.5-5.0 [facility] HospitalPlasma globulin measurement (mass/volume) 2020-05-12 04:25:00* Test Item Value Reference Range Interpretation Comments Globulin (test code = 61192-2) 3.4 2.3-3.5 [facility] Hospitalerum or plasma albumin/globulin mass chybq3063-33-09 04:25:00* Test Item Value Reference Range Interpretation Comments Albumin/Globulin Ratio (test code = 1759-0) 1.1 0.8-2.0 [facility] Hospitalerum or plasma alkaline phosphatase measurement (enzymatic activity/volume)2020-05-12 04:25:00* Test Item Value Reference Range Interpretation Comments Alkaline Phosphatase (test code = 6768-6) 82 40-150 [facility] HospitalFluoroscopic procedure less than one hour mxhmdrzd7286-90-82 23:35:00* Test Item Value Reference Range Interpretation Comments Coronavirus (PCR) (test code = Coronavirus (PCR)) NOT DETECTED NOTD ETECTED [employer] Aptima SARS-CoV-2 assay is a nucleic amplification test intended for the qualitative detection of RNA from SARS-CoV-2 from nasopharyngeal ([employer]) specimens. It is used under Emergency Use Authorization (EUA) by FDA.A positive result is indicative of the presence of SARS-CoV-2 RNA. Clinical correlation with patient history and other diagnostic information is necessary to determine patient infe ction status.A negative (Not Detected) result does not preclude SARS-CoV-2 infec tion. Clinical Correlation with patient history and other diagnostic information should be used in patient management decisions.Invalid: Unable to generate a va lid result on this specimen. Please submit a new specimen for reprat testing oc clinically indicated.Tesing performed by:[facility] [address] [place] [address] [id number], Bautista Han MD, PhD [facility] HospitalCT ABDOMEN/PELVIS [id number] 22:07:00 [facility] [address] [address] Patient Name: TRELL BURROWS MR #: [id number] : 1940 Age/Sex: 80/F Req #: [id number] Adm Physician: Ordered by: GILBERT BURCIAGA DO Report #: [id number] Location: ER Room/Bed: Procedure: [id number] CT/CT ABDOMEN/PEL VIS W Exam Date: 05/11/20 Exam Time: 2148 REPORT STATUS: Signed EXAM: CT Abdomen and Pelvis WITH contrast INDICATION: abd pain COMPARISON: None. T ECHNIQUE: Abdomen and pelvis were scanned utilizing a multidetector helical sc anthony from the lung base to the pubic symphysis after administration of IV con trast. Coronal and sagittal reformations were obtained. Routine protocol was p erformed. Scan was performed when during portal venous phase. IV CONT RAST: 100 mL of Isovue 370 ORAL CONTRAST: None COMPLICAT IONS: None RADIATION DOSE: Total DLP: 519.12 mGy*cm Estimated effective dose: (DLP x 0.015 x size factor) mSv CTDIvol has been reviewe d. It is below the limits set by the Radiation Protocol Committee (RPC). Dose modulation, iterative reconstruction, and/or weight based adjustment of the mA/kV was utilized to reduce the radiation dose to as low as reasonably a chievable. FINDINGS: LINES and TUBES: None. LOWER THORAX: Unrem arkable HEPATOBILIARY: Diffuse hypoattenuation of the liver relative to the spleen with more focal fatty infiltration at the falciform ligament. No bilia ry ductal dilation. GALLBLADDER: No radio-opaque stones or sludge. No w all thickening. SPLEEN: No splenomegaly. PANCREAS: No focal masses or ductal dilatation. ADRENALS: No adrenal nodules KIDNEYS/URETERS: Kidneys enhance symmetrically. No hydronephrosis. No cystic or solid mass l esions. No stones. GI TRACT: No abnormal distention, wall thickening, or e vidence of bowel obstruction. Diverticulosis without evidence of acute divert iculitis. Appendix is normal. PELVIC ORGANS/BLADDER: No significant abno rmality. LYMPH NODES: No lymphadenopathy. VESSELS: Unremarkable. PERITONEUM / RETROPERITONEUM: No free air or fluid. BONES: Unremarkable. SOFT TISSUES: Unremarkable. IMPRESSION: 1. No acute abdo minopelvic process. 2. Hepatic steatosis. 3. Colonic diverticulosis withou t evidence of acute diverticulitis. Signed by: Skye Palmer MD on 05/11/20 10:25 PM Dictated By: SKYE PALMER MD 24 Transcribed By: LUISA on 05/11/202224 CO PY TO: GILBERT BURCIAGA DO CHEST SINGLE (PORTABLE)2020-05-11 21:22:[address] [address] Patient Name: TRELL BURROWS MR #: [id number] : 1940 Age/Sex: 80/F Req #: [id number] Adm Physician: Ordered by: GILBERT BURCIAGA DO Report #: [id number] Location: ER Room/Bed: Procedure: [id number] DX/CHEST SINGLE ( PORTABLE) Exam Date: 05/11/20 Exam Time: 2029 REPORT STATUS: Signed EXAMINATION: CH EST SINGLE (PORTABLE) INDICATION: Chest pain COMPARISON: None FINDINGS: TUBES and LINES: None. LUNGS: Normal lung volum es. Lungs are clear. No consolidations. Bibasilar atelectasis. PLEURA: No pleural effusion or pneumothorax. HEART AND MEDIASTINUM: The cardiomed iastinal silhouette is within normal limits with atherosclerotic calcification of the thoracic aortic knob. BONES AND SOFT TISSUES: No acute osseous les ion. Soft tissues are unremarkable. UPPER ABDOMEN: No free air under the diaphragm. IMPRESSION: No acute thoracic radiographic abnormalit y. Signed by: Víctor Keller MD on 05/11/2020 9:30 PM Dictated By: VÍCTOR KELLER MD 29 Transcribed By: LUISA on 05/11/202129 COPY TO: GILBERT BURCIAGA DO BNP Lnu-wAsu3704-27-24 20:11:00* Test Item Value Reference Range Interpretation Comments B-Type Natriuretic Peptide (test code = 54634-0) 17.4 0-100 [facility] Hospitalerum or plasma lipase measurement (enzymatic activity/volume)2020-05-11 20:11:00* Test Item Value Reference Range Interpretation Comments Lipase (test code = 3040-3) 6 8-78 [facility]CT [facility]BD[facility]PELVIS [id number] 19:45:00 [facility] [address] [address] Patient Name: TRELL BURROWS MR #: [id number] : 1940 Age/Sex: 80/F Req #: [id number] Adm Physician: Ordered by: ELBA HOOVER DO Report #: [id number] Location: ER Room/Bed: Procedure: [id number] CT/CT ABDOMEN /PELVIS W Exam Date: 05/09/20 Exam Time: 1853 REPORT STATUS: Signed EXAM: CT Abdomen and Pelvis WITH contrast INDICATION: Right upper quadrant pain COMP MICHAELSON: Abdominal CT 04/30/2020 TECHNIQUE: Abdomen and pelvis were scanned util izing a multidetector helical scanner from the lung base to the pubic symphysi s after administration of IV contrast. Coronal and sagittal reformations were obtained. Routine protocol was performed. Scan was performed when during erick l venous phase. IV CONTRAST: 100 mL of Isovue 370 ORAL CONTRAS T: None COMPLICATIONS: None RADIATION DOSE: Total D LP: 556 mGy*cm Estimated effective dose: (DLP x 0.015 x size factor) mSv CTDIvol has been reviewed. It is below the limits set by the Radiation Protocol Committee (RPC). Dose modulation, iterative reconstruction, and/ or weight based adjustment of the mA/kV was utilized to reduce the radiation d ose to as low as reasonably achievable. FINDINGS: LINES and TUBES: None. LOWER THORAX: Mitral annular calcifications. HEPATOBILIARY: No focal hepatic lesions. No biliary ductal dilation. GALLBLADDER: No radio-opaque stones or sludge. No wall thickening. SPLEEN: No splenomegal y. PANCREAS: No focal masses or ductal dilatation. ADRENALS: No adr enal nodules KIDNEYS/URETERS: Kidneys enhance symmetrically. No hydron ephrosis. No cystic or solid mass lesions. No stones. GI TRACT: No abnor mal distention, wall thickening, or evidence of bowel obstruction. Appen navneet is normal. Colonic diverticuli. Small sliding gastric hiatal hernia. PELVIC ORGANS/BLADDER: Hysterectomy. No adnexal masses. Urinary bladder unrem arkable. LYMPH NODES: No lymphadenopathy. VESSELS: Arterial calcif ications and plaques. PERITONEUM / RETROPERITONEUM: No free air or flui d. BONES: Degenerative changes. SOFT TISSUES: A 0.9 cm calcified n odule in the right breast.. IMPRESSION: 1. Small sliding gastric hiatal hernia. 2. Colonic diverticulosis without diverticulitis. 3. A 0.9 cm calcified nodule in the right breast. Recommend referral to dedicated breast imaging center. Signed by: Dustin Yang DO on 05/09/2020 7:50 PM Dictated By: DUSTIN YANG DO 49 Transcribed By: LUISA on 05/09/201949 COPY TO: ELBA HOOVER DO CHEST SINGLE (PORTABLE)2020-05-09 18:45:00 [address] [address] Patient Name: TRELL BURROWS MR #: [id number] : 1940 Age/Sex: 80/F Req #: [id number] Adm Physician: Ordered by: TOM CARRENO MD Report #: [id number] Location: ER Room/Bed: Procedure: [id number] DX/CHEST SINGLE (PORTABLE) Exam Date: 05/09/20 Exam Time: 1755 REPORT STATUS: Signed EXAMINATION: C HEST SINGLE (PORTABLE) INDICATION: ACHY ALL OVER COMPARISON: Ch est radiograph 04-30-2020. FINDINGS: TUBES and LINES: None. ASHLEIGH GS: Lungs are well inflated. Mild patchy bibasilar opacities. No evidence of lobar consolidation or pulmonary edema. PLEURA: No pleural effusion or pn eumothorax. HEART AND MEDIASTINUM: The cardiomediastinal silhouette is un remarkable. There are atherosclerotic calcifications within the aorta. RAYNE RADHA AND SOFT TISSUES: No acute osseous lesion. Soft tissues are unremarkable . UPPER ABDOMEN: No free air under the diaphragm. IMPRESSION: M ild patchy bibasilar opacities, more likely atelectasis than infection. No shreya dence of lobar pneumonia. Signed by: Dr. Rebecca Escobar MD on 05/09/2020 6:47 P M Dictated By: REBECCA ESCOBAR MD 46 Transcribed By: LUISA on 05/09/201846 COPY TO: Luciana CARRENO MD Blood leukocytes automated count (number/volume)2020-05-09 17:30:00* Test Item Value Reference Range Interpretation Comments White Blood Count (test code = 6690-2) 8.43 4.8-10.8 [facility] HospitalBlood erythrocytes automated count (number/volume)2020-05-09 17:30:00* Test Item Value Reference Range Interpretation Comments Red Blood Count (test code = 789-8) 4.17 3.6-5.1 [facility] HospitalBlood hemoglobin measurement (moles/volume)2020-05-09 17:30:00* Test Item Value Reference Range Interpretation Comments Hemoglobin (test code = 06103-2) 11.9 12.0-16.0 [facility] HospitalAutomated blood hematocrit (volume fraction)2020-05-09 17:30:00* Test Item Value Reference Range Interpretation Comments Hematocrit (test code = 4544-3) 35.0 34.2-44.1 [facility] HospitalAutomated erythrocyte mean corpuscular pvuwux5830-33-14 17:30:00* Test Item Value Reference Range Interpretation Comments Mean Corpuscular Volume (test code = 787-2) 83.9 81-99 [facility] HospitalAutomated erythrocyte mean corpuscular hemoglobin (mass per erythrocyte)2020-05-09 17:30:00* Test Item Value Reference Range Interpretation Comments Mean Corpuscular Hemoglobin (test code = 785-6) 28.5 28-32 [facility] HospitalAutomated erythrocyte mean corpuscular hemoglobin concentration measurement (mass/volume)2020-05-09 17:30:00* Test Item Value Reference Range Interpretation Comments Mean Corpuscular Hemoglobin Concent (test code = 786-4) 34.0 31-35 [facility] HospitalRDW IpeLx-Gnt9962-33-22 17:30:00* Test Item Value Reference Range Interpretation Comments Red Cell Distribution Width (test code = 88513-7) 12.7 11.7 -14.4 [facility] HospitalAutomated blood platelet count (count/volume)2020-05-09 17:30:00* Test Item Value Reference Range Interpretation Comments Platelet Count (test code = 777-3) 341 140-360 [facility] HospitalAutomated blood segmented neutrophil count as percentage of total skgrprqhvz8084-97-24 17:30:00* Test Item Value Reference Range Interpretation Comments Neutrophils (%) (Auto) (test code = 80702-6) 70.7 38.7-80.0 [facility] HospitalAutomated blood lymphocyte count as percentage ot total onaekdboml1242-41-94 17:30:00* Test Item Value Reference Range Interpretation Comments Lymphocytes (%) (Auto) (test code = 736-9) 19.7 18.0-39.1 [facility] HospitalAutomated blood monocyte count as percentage of total anvjbcjfxt6325-82-13 17:30:00* Test Item Value Reference Range Interpretation Comments Monocytes (%) (Auto) (test code = 5905-5) 6.9 4.4-11.3 [facility] HospitalAutatrium healthed blood eosinophil count as percentage of total loduwndpmp2073-45-41 17:30:00* Test Item Value Reference Range Interpretation Comments Eosinophils (%) (Auto) (test code = 713-8) 1.4 0.0-6.0 [facility] HospitalAutomated blood basophil count as percentage of total ewxovcrrkq4021-93-89 17:30:00* Test Item Value Reference Range Interpretation Comments Basophils (%) (Auto) (test code = 706-2) 0.5 0.0-1.0 [facility] HospitalFluoroscopic procedure less than one hour hfwforno0265-46-33 17:30:00* Test Item Value Reference Range Interpretation Comments IM GRANULOCYTES % (test code = IM GRANULOCYTES %) 0.8 0.0- 1.0 [facility] HospitalAutomated blood neutrophil count 2020-05-09 17:30:00* Test Item Value Reference Range Interpretation Comments Neutrophils # (Auto) (test code = 751-8) 6.0 2.1-6.9 [facility] HospitalBlood lymphocytes count (number/volume) 2020-05-09 17:30:00* Test Item Value Reference Range Interpretation Comments Lymphocytes # (Auto) (test code = 33601-0) 1.7 1.0-3.2 [facility] HospitalBlood monocytes automated count (number/volume)2020-05-09 17:30:00* Test Item Value Reference Range Interpretation Comments Monocytes # (Auto) (test code = 742-7) 0.6 0.2-0.8 [facility] HospitalAutomated blood eosinophil count 2020-05-09 17:30:00* Test Item Value Reference Range Interpretation Comments Eosinophils # (Auto) (test code = 711-2) 0.1 0.0-0.4 [facility] HospitalAutomated blood basophil count (count/volume)2020-05-09 17:30:00* Test Item Value Reference Range Interpretation Comments Basophils # (Auto) (test code = 704-7) 0.0 0.0-0.1 [facility] HospitalFluoroscopic procedure less than one hour avmntycy5376-50-73 17:30:00* Test Item Value Reference Range Interpretation Comments Absolute Immature Granulocyte (auto (cherrie t code = Absolute Immature Granulocyte (auto) 0.07 0-0.1 [facility] HospitalProthrombin time (PT) in platelet poor plasma by coagulation kwpbn9475-25-37 17:30:00* Test Item Value Reference Range Interpretation Comments Prothrombin Time (test code = 5902-2) 12.7 11.9-14.5 [facility] HospitalINR in Platelet poor plasma by Coagulation fnbes1908-07-65 17:30:00* Test Item Value Reference Range Interpretation Comments Prothromb Time International Ratio (test code = 6301-6) 0.91 Oral Anticoagulant Therapy INR Values:1. Low Intensity Therapy 1.5 - 2.02 . Moderate Intensity Therapy 2.0 - 3.03. High Intensity Therapy(1) 2.5 - 3. 54. High Intensity Therapy(2) 3.0 - 4.05. Panic Value INR > 5.0 [facility] HospitalActivated partial thromboplastin time (aPTT) in platelet poor plasma by coagulation wsgxo3135-34-87 17:30:00* Test Item Value Reference Range Interpretation Comments Activated Partial Thromboplast Time (test code = 71591-5) 29.9 23.8-35.5 [facility] HospitalUrine color eoxpdhknzqjjp6017-70-94 17:30:00* Test Item Value Reference Range Interpretation Comments Urine Color (test code = 5778-6) COLORLESS YELLOW [facility] HospitalUrine xmnvlkl5237-54-68 17:30:00* Test Item Value Reference Range Interpretation Comments Urine Clarity (test code = 57010-0) CLEAR CLEAR [facility] gravity of Urine by Test strip 2020-05-09 17:30:00* Test Item Value Reference Range Interpretation Comments Urine Specific [place] (test code = 5811-5) 1.020 1.010-1.02 5 [facility] HospitalUrine pH measurement by automated test njfpn6430-92-44 17:30:00* Test Item Value Reference Range Interpretation Comments Urine pH (test code = 98975-6) 7.5 5-7 [facility] HospitalUrine leukocyte esterase detection by khivriox3211-87-42 17:30:00* Test Item Value Reference Range Interpretation Comments Urine Leukocyte Esterase (test code = 5799-2) NEGATIVE NEGATIVE [facility] HospitalUrine nitrite fgoalxbkn0446-18-18 17:30:00* Test Item Value Reference Range Interpretation Comments Urine Nitrite (test code = 26302-5) NEGATIVE NEGATIVE [facility] HospitalUrine protein measurement by test strip (mass/volume)2020-05-09 17:30:00* Test Item Value Reference Range Interpretation Comments Urine Protein (test code = 5804-0) NEGATIVE NEGATIVE [facility] HospitalUrine glucose oceseoagx3837-95-71 17:30:00* Test Item Value Reference Range Interpretation Comments Urine Glucose (UA) (test code = 2349-9) NEGATIVE NEGATIVE [facility] HospitalUrine ketones detection by automated test yilye7989-27-09 17:30:00* Test Item Value Reference Range Interpretation Comments Urine Ketones (test code = 94369-3) NEGATIVE NEGATIVE [facility] HospitalUrine urobilinogen measurement by test strip (mass/volume)2020-05-09 17:30:00* Test Item Value Reference Range Interpretation Comments Urine Urobilinogen (test code = 10254-7) 0.2 0.2-1 [facility] HospitalUrine total bilirubin measurement (mass/volume)2020-05-09 17:30:00* Test Item Value Reference Range Interpretation Comments Urine Bilirubin (test code = 1978-6) NEGATIVE NEGATIVE [facility] HospitalUrine erythrocytes mihwugmly4720-23-70 17:30:00* Test Item Value Reference Range Interpretation Comments Urine Blood (test code = 54685-0) SMALL NEGATIVE [facility] HospitalAutomated urine sediment leukocyte count by microscopy (number/high power field)2020-05-09 17:30:00* Test Item Value Reference Range Interpretation Comments Urine WBC (test code = 5821-4) -20 0-5 [facility] HospitalErythrocytes detection in urine sediment by light jagnwfdksd6624-00-05 17:30:00* Test Item Value Reference Range Interpretation Comments Urine RBC (test code = 43083-9) -20 0-5 [facility] HospitalBacteria detection in urine sediment by light jnebtxncdg0312-13-30 17:30:00* Test Item Value Reference Range Interpretation Comments Urine Bacteria (test code = 11175-3) MODERATE NONE [facility] HospitalEpithelial cells detection in urine sediment by light oegtstgxab2983-15-15 17:30:00* Test Item Value Reference Range Interpretation Comments Urine Epithelial Cells (test code = 72014-1) MODERATE NONE [facility] Hospitalerum or plasma sodium measurement (moles/volume)2020-05-09 17:30:00* Test Item Value Reference Range Interpretation Comments Sodium Level (test code = 2951-2) 126 136-145 [facility] Hospitalerum or plasma potassium measurement (moles/volume)2020-05-09 17:30:00* Test Item Value Reference Range Interpretation Comments Potassium Level (test code = 2823-3) 4.3 3.5-5.1 [facility] Hospitalerum or plasma chloride measurement (moles/volume)2020-05-09 17:30:00* Test Item Value Reference Range Interpretation Comments Chloride Level (test code = 2075-0) 87 98-107 [facility] Hospitalerum or plasma carbon dioxide, total measurement (moles/volume)2020-05-09 17:30:00* Test Item Value Reference Range Interpretation Comments Carbon Dioxide Level (test code = 2028-9) 26 22-29 [facility] Hospitalerum or plasma anion omt3442-75-48 17:30:00* Test Item Value Reference Range Interpretation Comments Anion Gap (test code = 79155-2) 17.3 8-16 [facility] Hospitalerum or plasma urea nitrogen measurement (mass/volume)2020-05-09 17:30:00* Test Item Value Reference Range Interpretation Comments Blood Urea Nitrogen (test code = 3094-0) 8 7-26 [facility] Hospitalerum or plasma creatinine measurement (mass/volume)2020-05-09 17:30:00* Test Item Value Reference Range Interpretation Comments Creatinine (test code = 2160-0) 0.84 0.57-1.11 [facility] Hospitalerum or plasma urea nitrogen/creatinine mass indta2474-19-13 17:30:00* Test Item Value Reference Range Interpretation Comments BUN/Creatinine Ratio (test code = 3097-3) 10 6-25 [facility] HospitalEstimated glomerular filtration rate (GFR) fzmithlczfllt4470-34-22 17:30:00* Test Item Value Reference Range Interpretation Comments Estimat Glomerular Filtration Rate (test code = 547739061) > 60 >60 Ranges were taken from the National Kidney Disease Education Program and the [facility] literature.Reference ranges:60 or greater: Tggzrd38-70 ( for 3 consecutive months): Chronic kidney disease 15 or less: Kidney failureMemorial Hermann Cypress HospitalGlucose gxwzconxtsq5287-05-28 17:30:00* Test Item Value Reference Range Interpretation Comments Glucose Level (test code = DXM2202) 108 74-118 [facility] Hospitalerum or plasma calcium measurement (mass/volume)2020-05-09 17:30:00* Test Item Value Reference Range Interpretation Comments Calcium Level (test code = 50999-6) 9.3 8.4-10.2 [facility] Hospitalerum or plasma magnesium measurement (mass/volume)2020-05-09 17:30:00* Test Item Value Reference Range Interpretation Comments Magnesium Level (test code = 53084-9) 1.8 1.3-2.1 [facility] [facility] total bilirubin measurement (mass/volume)2020-05-09 17:30:00* Test Item Value Reference Range Interpretation Comments Total Bilirubin (test code = 1975-2) 0.3 0.2-1.2 [facility] HospitalFluoroscopic procedure less than one hour ssbuqqow0654-31-78 17:30:00* Test Item Value Reference Range Interpretation Comments Aspartate Amino Transf (AST/SGOT) (test code = Aspartate Amino Transf (AST/SGOT)) 17 5-34 [facility]er[facility] alanine aminotransferase measurement (enzymatic activity/volume)2020-05-09 17:30:00* Test Item Value Reference Range Interpretation Comments Alanine Aminotransferase (ALT/SGPT) (test code = 1742-6) 17 0-55 [facility]er[facility] plasma protein measurement (mass/volume)2020-05-09 17:30:00* Test Item Value Reference Range Interpretation Comments Total Protein (test code = 2885-2) 7.8 6.5-8.1 [facility] albumin measurement (mass/volume)2020-05-09 17:30:00* Test Item Value Reference Range Interpretation Comments Albumin (test code = 1751-7) 4.1 3.5-5.0 [facility] HospitalPlasma globulin measurement (mass/volume) 2020-05-09 17:30:00* Test Item Value Reference Range Interpretation Comments Globulin (test code = 51625-9) 3.7 2.3-3.5 [facility]er[facility] plasma albumin/globulin mass ocfet2622-25-48 17:30:00* Test Item Value Reference Range Interpretation Comments Albumin/Globulin Ratio (test code = 1759-0) 1.1 0.8-2.0 [facility]er[facility] plasma alkaline phosphatase measurement (enzymatic activity/volume)2020-05-09 17:30:00* Test Item Value Reference Range Interpretation Comments Alkaline Phosphatase (test code = 6768-6) 94 40-150 [facility]er[facility] plasma creatine kinase measurement (enzymatic activity/volume)2020-05-09 17:30:00* Test Item Value Reference Range Interpretation Comments Creatine Kinase (test code = 2157-6) 125 29-168 [facility]er[facility] or plasma creatine kinase MB measurement (mass/volume)2020-05-09 17:30:00* Test Item Value Reference Range Interpretation Comments Creatine Kinase MB (test code = 94426-4) 2.80 0-5.0 [facility] HospitalTroponin I measurement by highly sensitive enzyme wurpldotijy5858-92-26 17:30:00* Test Item Value Reference Range Interpretation Comments Troponin I (test code = 88450-8) 0.001 0-0.300 [facility]er[facility] plasma amylase measurement (enzymatic activity/volume)2020-05-09 17:30:00* Test Item Value Reference Range Interpretation Comments Amylase Level (test code = 1798-8) 144 25-125 [facility]er[facility] plasma lipase measurement (enzymatic activity/volume)2020-05-09 17:30:00* Test Item Value Reference Range Interpretation Comments Lipase (test code = 3040-3) 38 8-78 [facility] HospitalFluoroscopic procedure less than one hour stcarszl6666-77-94 17:30:00* Test Item Value Reference Range Interpretation Comments Coronavirus (PCR) (test code = Coronavirus (PCR)) NOT DETECTED NOTD ETECTED SARS-COV2/RT-PCR CEPHEIDResults are for the detection of SARS-COV-2 RNA. The PANTERA S-COV-2 RNA is generally detectable in nasopharyngeal swab specimens during the acute phase of infection. Positive results are indicitive of active infection wi th SARS-COV-2; clinical correlation with patient history and other diagnostic in formation is necessary to determine patient infection status. Positive results d o not rule out bacterial infection or co-infection with other viruses. The agent detected may not be the definite cause of the disease.The limit of detection for this assay is 250 copies/mLThe SARS-CoV-2 test is a rapid, real-time RT-PCR test intended for the qualitative detection of nucleic acid from SARS-CoV-2 in lee ann opharyngeal swab specimen collected from individuals suspected of COVID-19 by [facility] healthcare provider. This test has not been Food and Drug Administration (FD A) cleared or approved and has been authorized by FDA under an Emergency Use Aut horization (EUA). This EUA will be effective until the declaration that circumst ances exist justifying the authorization of the emergency use of in vitro diagno stic test for detection and or diagnosis of COVID-19 is terminated under section 564(b) of the Act, or the the EUA is revoked under 564(g) of the ACT. SARS-COV2 /RT-PCR CEPHEIDResults are for the detection of SARS-COV-2 RNA. The SARS-COV-2 R NA is generally detectable in nasopharyngeal swab specimens during the acute pha se of infection. Positive results are indicitive of active infection with SARS-C OV-2; clinical correlation with patient history and other diagnostic information is necessary to determine patient infection status. Positive results do not rule out bacterial infection or co-infection with other viruses. The agent detected may not be the definite cause of the disease.The limit of detection for this as say is 250 copies/mLThe SARS-CoV-2 test is a rapid, real-time RT-PCR test intend ed for the qualitative detection of nucleic acid from SARS-CoV-2 in nasopharynge al swab specimen collected from individuals suspected of COVID-19 by [facility]. This test has not been Food and Drug Administration (FDA) cleare d or approved and has been authorized by FDA under an Emergency Use Authorizatio n (EUA). This EUA will be effective until the declaration that circumstances exi st justifying the authorization of the emergency use of in vitro diagnostic test for detection and or diagnosis of COVID-19 is terminated under section 564(b) of the Act, or the the EUA is revoked under 564(g) of the ACT.[facility] CenterCapillary blood glucose measurement by glucometer (mass/volume)2020-05-03 15:19:00* Test Item Value Reference Range Interpretation Comments Bedside Glucose (test code = 95825-6) 110 70-120 Meter ID: [id number] [facility] Hospitaltool lactoferrin mjqsspons1055-64-48 21:33:00* Test Item Value Reference Range Interpretation Comments Stool Lactoferrin (LAB) (test code = 79256-5) POSITIVE NEGATIVE Testing on stool aspirate specimens is outside risk consultant claims since specime n type not validated on this assay.[facility] Clostridium difficile A and B toxin ipjiz8019-96-11 21:33:00* Test Item Value Reference Range Interpretation Comments Clostridium Difficile Toxin A & B (test code = 337711579) NEGATIVE NEGATIVE Testing on stool aspirate specimens is outside risk consultant claims since specime n type not validated on this assay.[facility] HospitalCT ABDOMEN/PELVIS [id number] 11:51:00 [facility] [address] [address] Patient Name: TRELL BURROWS MR #: [id number] : 1940 Age/Sex: 80/F Req #: [id number] Adm Physician: Ordered by: ELBA HOOVER DO Report #: [id number] Location: ER Room/Bed: Procedure: [id number] CT/CT ABDOMEN /PELVIS W Exam Date: 04/30/20 Exam Time: 1120 REPORT STATUS: Signed EXAM: CT Abdomen and Pelvis WITH intravenous contrast INDICATION: Diarrhea COMPARISO N: None. TECHNIQUE: Abdomen and pelvis were scanned utilizing a multidetect or helical scanner from the lung base to the pubic symphysis after administrat ion of IV contrast. Coronal and sagittal reformations were obtained. Routine p rotocol was performed. Scan was performed during portal venous phase. IV CONTRAST: 100mL of Isovue 370 ORAL CONTRAST: Water RADIATION DOSE: Total DLP: 699 mGy*cm Dose modulation, iterative reconstruction, and/or w eight based adjustment of the mA/kV was utilized to reduce the radiation dose to as low as reasonably achievable. FINDINGS: LOWER THORAX: Normal. HEPATOBILIARY: Diffuse hepatic steatosis. No focal liver lesion. No biliary ductal dilation. Unremarkable gallbladder. SPLEEN: No splenomegaly. P ANCREAS: No focal masses or ductal dilatation. ADRENALS: No adrenal nodules . KIDNEYS/URETERS: No hydronephrosis, stones, or solid mass lesions. PELVIC ORGANS/BLADDER: Hysterectomy. PERITONEUM / RETROPERITONEUM: No free air or free fluid. LYMPH NODES: No lymphadenopathy. VESSELS: Moderate atherosclerot ic calcifications of the nonaneurysmal abdominal aorta and major branches. GI TRACT: Diverticulosis without CT evidence of diverticulitis. No abnormal bowel thickening. No bowel obstruction. Normal appendix. BONES AND SOFT TIS SUES: No acute osseous injury. No suspicious lytic or blastic lesions. Mild de generative changes of the visualized spine. IMPRESSION: No acute finding s in the abdomen or pelvis. Diffuse hepatic steatosis. Diverticulosis without CT evidence of diverticulitis. Signed by: Joe Weaver MD on 04/30/20 11:53 AM Dictated By: JOE WEAVER MD 115 Transcribed By: LUISA on 04/30/20 1153 COPY TO: ELBA HOOVER DO CHEST SINGLE (PORTABLE)2020-04-30 11:27:[address] [address] Patient Name: TRELL BURROWS MR #: [id number] : 1940 Age/Sex: 80/F Req #: [id number] Adm Physician: Ordered by: ELBA HOOVER DO Report #: [id number] Location: ER Room/Bed: Procedure: [id number] DX/CHEST SING LE (PORTABLE) Exam Date: 04/30/20 Exam Time: 1041 REPORT STATUS: Signed EXAMINATION: CHEST SINGLE (PORTABLE) INDICATION: Diarrhea COMPARISON: None FINDINGS: LINES/TUBES:None LUNGS:The lungs are well-inflated. No focal consolidation or pulmonary edema. PLEURA:No pleural effusion or pn eumothorax. MEDIASTINUM:The cardiomediastinal silhouette appears normal in size and shape. Atherosclerotic calcifications of the thoracic aorta. BON ES/SOFT TISSUES:No acute osseous injury. ABDOMEN:No free air under the diap hragm. IMPRESSION: No focal pneumonia or pulmonary edema. Signed by: Joe Weaver MD on 04/30/2020 11:28 AM Dictated By: JOE WEAVER MD Екатерина ctronically Signed By: JOE WEAVER MD on 04/30/201127 Transcribed By: LUISA alicea 04/30/201127 COPY TO: ELBA HOOVER DO US GALLBLADDER 2020-04-25 22:52:00 [address] [address] Patient Name: TRELL BURROWS MR #: [id number] : 1940 Age/Sex: 79/F Req #: [id number] Adm Physician: Ordered by: BAUTISTA MCLAUGHLIN MD Report #: [id number] Location: ER Room/Bed: Procedure: [id number] US/ GAL LBLADDER Exam Date: 04/25/20 Exam Time: 2227 REPORT STATUS: Signed EXAM: Right Upper Quadrant Ultrasound INDICATION: RUQ PAIN COMPARISON: None. TECHNIQUE: Transverse and longitudinal images of the right upper abdomen were obtained. FINDINGS: Liver: Size: 15.4 cm in the right mid clavicular line, normal Appearance: Normal echogenicity, smooth contour Mass: No focal masses Gallbladder: Stones/Sludge: None Wall: 0.26 cm Appearance: No pericholecystic fluid or hydrops. S onographic Guo's Sign: Negative Bile Ducts: Intrahepatic Ducts: N o dilatation Extrahepatic Ducts: Common bile duct measures 0.4 cm, no dil atation Pancreas: Partially visualized due to overlying bowel gas. Right Kidney: Size: 9.5 cm Echogenicity: Normal Pare nchymal thickness: Normal Collecting system: No hydronephrosis St ones: None Cyst/Mass: None Vessels: Aorta: Visualized portion s are normal Inferior Vena Cava: Visualized portions are normal Ma in portal vein: Normal size and flow direction. Free Fluid: No ascit es or pleural effusion IMPRESSION: 1. Normal exam. No cholelithiasi s or evidence of acute cholecystitis. 2. Limited evaluation of the pancreas du e to overlying bowel gas. Signed by: Skye Palmer MD on 04/25/2020 10:57 PM Dictated By: SKYE PALMER MD 56 Transcribed By: LUISA on 04/25/202256 COPY TO: BAUTISTA PHILLIPS MD Blood leukocytes automated count (number/volume) 2020-04-25 22:05:00* Test Item Value Reference Range Interpretation Comments White Blood Count (test code = 6690-2) 8.91 4.8-10.8 [facility]Bl[facility] erythrocytes automated count (number/volume)2020-04-25 22:05:00* Test Item Value Reference Range Interpretation Comments Red Blood Count (test code = 789-8) 4.43 3.6-5.1 [facility] HospitalBlood hemoglobin measurement (moles/volume)2020-04-25 22:05:00* Test Item Value Reference Range Interpretation Comments Hemoglobin (test code = 13461-9) 12.3 12.0-16.0 [facility] HospitalAutomated blood hematocrit (volume fraction)2020-04-25 22:05:00* Test Item Value Reference Range Interpretation Comments Hematocrit (test code = 4544-3) 37.5 34.2-44.1 [facility] HospitalAutomated erythrocyte mean corpuscular itbvjg7338-05-76 22:05:00* Test Item Value Reference Range Interpretation Comments Mean Corpuscular Volume (test code = 787-2) 84.7 81-99 [facility] HospitalAutomated erythrocyte mean corpuscular hemoglobin (mass per erythrocyte)2020-04-25 22:05:00* Test Item Value Reference Range Interpretation Comments Mean Corpuscular Hemoglobin (test code = 785-6) 27.8 28-32 [facility] HospitalAutomated erythrocyte mean corpuscular hemoglobin concentration measurement (mass/volume)2020-04-25 22:05:00* Test Item Value Reference Range Interpretation Comments Mean Corpuscular Hemoglobin Concent (test code = 786-4) 32.8 31-35 [facility] HospitalRDW EbmMi-Kum3366-41-08 22:05:00* Test Item Value Reference Range Interpretation Comments Red Cell Distribution Width (test code = 83261-3) 13.3 11.7 -14.4 [facility] HospitalAutomated blood platelet count (count/volume)2020-04-25 22:05:00* Test Item Value Reference Range Interpretation Comments Platelet Count (test code = 777-3) 364 140-360 [facility] HospitalAutomated blood segmented neutrophil count as percentage of total xvukpjsvky3278-20-90 22:05:00* Test Item Value Reference Range Interpretation Comments Neutrophils (%) (Auto) (test code = 20395-8) 63.6 38.7-80.0 [facility] HospitalAutomated blood lymphocyte count as percentage ot total zfjqdcjsoq4733-89-85 22:05:00* Test Item Value Reference Range Interpretation Comments Lymphocytes (%) (Auto) (test code = 736-9) 23.6 18.0-39.1 [facility] HospitalAutomated blood monocyte count as percentage of total naoabnqchl9946-04-02 22:05:00* Test Item Value Reference Range Interpretation Comments Monocytes (%) (Auto) (test code = 5905-5) 7.4 4.4-11.3 [facility] HospitalAutomated blood eosinophil count as percentage of total binrslnupc8740-05-09 22:05:00* Test Item Value Reference Range Interpretation Comments Eosinophils (%) (Auto) (test code = 713-8) 4.3 0.0-6.0 [facility] HospitalAutomated blood basophil count as percentage of total clqisxpwfu5865-17-25 22:05:00* Test Item Value Reference Range Interpretation Comments Basophils (%) (Auto) (test code = 706-2) 0.9 0.0-1.0 [facility] HospitalFluoroscopic procedure less than one hour vzsxvlnv7506-67-29 22:05:00* Test Item Value Reference Range Interpretation Comments IM GRANULOCYTES % (test code = IM GRANULOCYTES %) 0.2 0.0- 1.0 [facility] HospitalAutomated blood neutrophil count 2020-04-25 22:05:00* Test Item Value Reference Range Interpretation Comments Neutrophils # (Auto) (test code = 751-8) 5.7 2.1-6.9 [facility] HospitalBlood lymphocytes count (number/volume) 2020-04-25 22:05:00* Test Item Value Reference Range Interpretation Comments Lymphocytes # (Auto) (test code = 23803-4) 2.1 1.0-3.2 [facility]Bl[facility] monocytes automated count (number/volume)2020-04-25 22:05:00* Test Item Value Reference Range Interpretation Comments Monocytes # (Auto) (test code = 742-7) 0.7 0.2-0.8 [facility] HospitalAutomated blood eosinophil count 2020-04-25 22:05:00* Test Item Value Reference Range Interpretation Comments Eosinophils # (Auto) (test code = 711-2) 0.4 0.0-0.4 [facility] HospitalAutomated blood basophil count (count/volume)2020-04-25 22:05:00* Test Item Value Reference Range Interpretation Comments Basophils # (Auto) (test code = 704-7) 0.1 0.0-0.1 [facility] HospitalFluoroscopic procedure less than one hour tykkgtpr4029-90-95 22:05:00* Test Item Value Reference Range Interpretation Comments Absolute Immature Granulocyte (auto (cherrie t code = Absolute Immature Granulocyte (auto) 0.02 0-0.1 [facility]er[facility] plasma sodium measurement (moles/volume)2020-04-25 22:05:00* Test Item Value Reference Range Interpretation Comments Sodium Level (test code = 2951-2) 133 136-145 [facility] Hospitalerum or plasma potassium measurement (moles/volume)2020-04-25 22:05:00* Test Item Value Reference Range Interpretation Comments Potassium Level (test code = 2823-3) 4.3 3.5-5.1 [facility] Hospitalerum or plasma chloride measurement (moles/volume)2020-04-25 22:05:00* Test Item Value Reference Range Interpretation Comments Chloride Level (test code = 2075-0) 98 98-107 [facility] Hospitalerum or plasma carbon dioxide, total measurement (moles/volume)2020-04-25 22:05:00* Test Item Value Reference Range Interpretation Comments Carbon Dioxide Level (test code = 2028-9) 24 - [facility] Hospitalerum or plasma anion ykt2107-40-98 22:05:00* Test Item Value Reference Range Interpretation Comments Anion Gap (test code = 00674-7) 15.3 8-16 [facility] Hospitalerum or plasma urea nitrogen measurement (mass/volume)2020-04-25 22:05:00* Test Item Value Reference Range Interpretation Comments Blood Urea Nitrogen (test code = 3094-0) 12 7-26 [facility] Hospitalerum or plasma creatinine measurement (mass/volume)2020-04-25 22:05:00* Test Item Value Reference Range Interpretation Comments Creatinine (test code = 2160-0) 1.04 0.57-1.11 [facility] Hospitalerum or plasma urea nitrogen/creatinine mass ckzyz1066-28-29 22:05:00* Test Item Value Reference Range Interpretation Comments BUN/Creatinine Ratio (test code = 3097-3) 12 6-25 [facility] HospitalEstimated glomerular filtration rate (GFR) tojoomksmqllf1959-42-22 22:05:00* Test Item Value Reference Range Interpretation Comments Estimat Glomerular Filtration Rate (test code = 926972426) 51 >60 Ranges were taken from the National Kidney Disease Education Program and the [facility] literature.Reference ranges:60 or greater: Yvoofb08-38 ( for 3 consecutive months): Chronic kidney disease 15 or less: Kidney failureMemorial Hermann Cypress HospitalGlucose bvvmyoascbh4964-40-81 22:05:00* Test Item Value Reference Range Interpretation Comments Glucose Level (test code = HID4813) 117 74-118 [facility] Hospitalerum or plasma calcium measurement (mass/volume)2020-04-25 22:05:00* Test Item Value Reference Range Interpretation Comments Calcium Level (test code = 49636-4) 9.6 8.4-10.2 [facility] Hospitalerum or plasma total bilirubin measurement (mass/volume)2020-04-25 22:05:00* Test Item Value Reference Range Interpretation Comments Total Bilirubin (test code = 1975-2) 0.4 0.2-1.2 [facility] HospitalFluoroscopic procedure less than one hour nphzxrex6949-08-03 22:05:00* Test Item Value Reference Range Interpretation Comments Aspartate Amino Transf (AST/SGOT) (test code = Aspartate Amino Transf (AST/SGOT)) 17 5-34 [facility] Hospitalerum or plasma alanine aminotransferase measurement (enzymatic activity/volume)2020-04-25 22:05:00* Test Item Value Reference Range Interpretation Comments Alanine Aminotransferase (ALT/SGPT) (test code = 1742-6) 20 0-55 [facility] Hospitalerum or plasma protein measurement (mass/volume)2020-04-25 22:05:00* Test Item Value Reference Range Interpretation Comments Total Protein (test code = 2885-2) 8.1 6.5-8.1 [facility] Hospitalerum or plasma albumin measurement (mass/volume)2020-04-25 22:05:00* Test Item Value Reference Range Interpretation Comments Albumin (test code = 1751-7) 4.2 3.5-5.0 [facility] HospitalPlasma globulin measurement (mass/volume) 2020-04-25 22:05:00* Test Item Value Reference Range Interpretation Comments Globulin (test code = 58727-5) 3.9 2.3-3.5 [facility] Hospitalerum or plasma albumin/globulin mass kpogq4089-80-32 22:05:00* Test Item Value Reference Range Interpretation Comments Albumin/Globulin Ratio (test code = 1759-0) 1.1 0.8-2.0 [facility] Hospitalerum or plasma alkaline phosphatase measurement (enzymatic activity/volume)2020-04-25 22:05:00* Test Item Value Reference Range Interpretation Comments Alkaline Phosphatase (test code = 6768-6) 97 40-150 [facility] Hospitalerum or plasma creatine kinase measurement (enzymatic activity/volume)2020-04-25 22:05:00* Test Item Value Reference Range Interpretation Comments Creatine Kinase (test code = 2157-6) 223 29-168 [facility] Hospitalerum or plasma creatine kinase MB measurement (mass/volume)2020-04-25 22:05:00* Test Item Value Reference Range Interpretation Comments Creatine Kinase MB (test code = 80525-7) 5.50 0-5.0 [facility] HospitalTroponin I measurement by highly sensitive enzyme jctafkaapiw8409-39-37 22:05:00* Test Item Value Reference Range Interpretation Comments Troponin I (test code = 75054-2) < 0.001 0-0.300 [facility] Hospitalerum or plasma amylase measurement (enzymatic activity/volume)2020-04-25 22:05:00* Test Item Value Reference Range Interpretation Comments Amylase Level (test code = 1798-8) 133 25-125 [facility] Hospitalerum or plasma lipase measurement (enzymatic activity/volume)2020-04-25 22:05:00* Test Item Value Reference Range Interpretation Comments Lipase (test code = 3040-3) 24 8-78 [facility] HospitalUrine color luruziuuuaajw8226-41-40 21:49:00* Test Item Value Reference Range Interpretation Comments Urine Color (test code = 5778-6) YELLOW YELLOW [facility] HospitalUrine mxrtyon9661-10-40 21:49:00* Test Item Value Reference Range Interpretation Comments Urine Clarity (test code = 52340-7) SL CLOUDY CLEAR [facility] Hospitalpecific gravity of Urine by Test strip 2020-04-25 21:49:00* Test Item Value Reference Range Interpretation Comments Urine Specific [place] (test code = 5811-5) 1.010 1.010-1.02 5 [facility] HospitalUrine pH measurement by automated test cqurg2452-35-09 21:49:00* Test Item Value Reference Range Interpretation Comments Urine pH (test code = 19022-9) 5.5 5-7 [facility] HospitalUrine leukocyte esterase detection by bawkjayb5116-70-06 21:49:00* Test Item Value Reference Range Interpretation Comments Urine Leukocyte Esterase (test code = 5799-2) NEGATIVE NEGATIVE [facility] HospitalUrine nitrite ylggdygre8326-99-59 21:49:00* Test Item Value Reference Range Interpretation Comments Urine Nitrite (test code = 99547-9) NEGATIVE NEGATIVE [facility] HospitalUrine protein measurement by test strip (mass/volume)2020-04-25 21:49:00* Test Item Value Reference Range Interpretation Comments Urine Protein (test code = 5804-0) TRACE NEGATIVE [facility] HospitalUrine glucose ziekuktet9269-24-43 21:49:00* Test Item Value Reference Range Interpretation Comments Urine Glucose (UA) (test code = 2349-9) NEGATIVE NEGATIVE [facility] HospitalUrine ketones detection by automated test tnsbk7742-64-09 21:49:00* Test Item Value Reference Range Interpretation Comments Urine Ketones (test code = 40730-1) NEGATIVE NEGATIVE [facility] HospitalUrine urobilinogen measurement by test strip (mass/volume)2020-04-25 21:49:00* Test Item Value Reference Range Interpretation Comments Urine Urobilinogen (test code = 54668-2) 0.2 0.2-1 [facility] HospitalUrine total bilirubin measurement (mass/volume)2020-04-25 21:49:00* Test Item Value Reference Range Interpretation Comments Urine Bilirubin (test code = 1978-6) NEGATIVE NEGATIVE [facility] HospitalUrine erythrocytes lmbemtnrz3733-20-27 21:49:00* Test Item Value Reference Range Interpretation Comments Urine Blood (test code = 62980-9) MODERATE NEGATIVE [facility] HospitalAutomated urine sediment leukocyte count by microscopy (number/high power field)2020-04-25 21:49:00* Test Item Value Reference Range Interpretation Comments Urine WBC (test code = 5821-4) 0-5 0-5 [facility] HospitalErythrocytes detection in urine sediment by light [id number] 21:49:00* Test Item Value Reference Range Interpretation Comments Urine RBC (test code = 24730-3) 6-10 0-5 [facility] HospitalBacteria detection in urine sediment by light [id number] 21:49:00* Test Item Value Reference Range Interpretation Comments Urine Bacteria (test code = 88154-9) FEW NONE [facility] HospitalEpithelial cells detection in urine sediment by light cjtincauwj2148-59-89 21:49:00* Test Item Value Reference Range Interpretation Comments Urine Epithelial Cells (test code = 56573-0) FEW NONE [facility] HospitalMucus detection in urine sediment by light kxhghbpqzo5575-44-32 21:49:00* Test Item Value Reference Range Interpretation Comments Urine Mucus (test code = 8247-9) FEW RARE [facility] HospitalMucus detection in urine sediment by light kifnquehyg7288-33-67 21:49:00* Test Item Value Reference Range Interpretation Comments Urine Mucus (test code = 8247-9) FEW RARE [facility] HospitalCT BRAIN [id number] 00:53:00 [place] [address] Patient Name: TRELL BURROWS MR #: [id number] : 1940 Age/Sex: 79/F Req #: [id number] Adm Physician: Ordered by: ELBA HOOVER DO Report #: [id number] Location: ER Room/Bed: Procedure: [id number] CT/CT BRAIN W O Exam Date: 03/31/20 Exam Time: 29 REPORT STATUS: Signed History:left weakness Comparison studies:None [...] No acute abnormalities. 2. Specifically, no ac jazmín vascular insults or acute hemorrhage. Chronic findings: [...] Count (test code = 6690-2) 10.13 4.8-10.8 [facility] HospitalBlood erythrocytes automated count (number/volume)2020-03-31 00:02:00* Test Item Value Reference Range Interpretation Comments Red Blood Count (test code = 789-8) 4.00 3.6-5.1 [facility] HospitalBlood hemoglobin measurement (moles/volume)2020-03-31 00:02:00* Test Item Value Reference Range Interpretation Comments Hemoglobin (test code = 23807-5) 11.1 12.0-16.0 [facility] HospitalAutomated blood hematocrit (volume fraction)2020-03-31 00:02:00* Test Item Value Reference Range Interpretation Comments Hematocrit (test code = 4544-3) 34.2 34.2-44.1 [facility] HospitalAutomated erythrocyte mean corpuscular ocqbfz6316-09-75 00:02:00* Test Item Value Reference Range Interpretation Comments Mean Corpuscular Volume (test code = 787-2) 85.5 81-99 [facility] HospitalAutomated erythrocyte mean corpuscular hemoglobin (mass per erythrocyte)2020-03-31 00:02:00* Test Item Value Reference Range Interpretation Comments Mean Corpuscular Hemoglobin (test code = 785-6) 27.8 28-32 [facility] HospitalAutomated erythrocyte mean corpuscular hemoglobin concentration measurement (mass/volume)2020-03-31 00:02:00* Test Item Value Reference Range Interpretation Comments Mean Corpuscular Hemoglobin Concent (test code = 786-4) 32.5 31-35 [facility] HospitalRDW BynCj-Uco2915-77-14 00:02:00* Test Item Value Reference Range Interpretation Comments Red Cell Distribution Width (test code = 93286-3) 13.3 11.7 -14.4 [facility] HospitalAutomated blood platelet count (count/volume)2020-03-31 00:02:00* Test Item Value Reference Range Interpretation Comments Platelet Count (test code = 777-3) 344 140-360 [facility] HospitalAutatrium healthed blood segmented neutrophil count as percentage of total lizgnlhsew6882-08-90 00:02:00* Test Item Value Reference Range Interpretation Comments Neutrophils (%) (Auto) (test code = 90164-2) 61.0 38.7-80.0 [facility] HospitalAutatrium healthed blood lymphocyte count as percentage ot total sxpblvimbd8161-99-05 00:02:00* Test Item Value Reference Range Interpretation Comments Lymphocytes (%) (Auto) (test code = 736-9) 24.5 18.0-39.1 [facility] HospitalAutomated blood monocyte count as percentage of total ypopklhtrz1425-84-17 00:02:00* Test Item Value Reference Range Interpretation Comments Monocytes (%) (Auto) (test code = 5905-5) 5.7 4.4-11.3 [facility] HospitalAutomated blood eosinophil count as percentage of total iorqorjbov8550-65-20 00:02:00* Test Item Value Reference Range Interpretation Comments Eosinophils (%) (Auto) (test code = 713-8) 8.1 0.0-6.0 [facility] bas[facility] as percentage of total anrdltavbu5131-39-38 00:02:00* Test Item Value Reference Range Interpretation Comments Basophils (%) (Auto) (test code = 706-2) 0.4 0.0-1.0 [facility] HospitalFluoroscopic procedure less than one hour rmvkcnoa7845-02-91 00:02:00* Test Item Value Reference Range Interpretation Comments IM GRANULOCYTES % (test code = IM GRANULOCYTES %) 0.3 0.0- 1.0 [facility] HospitalAutomated blood neutrophil count 2020-03-31 00:02:00* Test Item Value Reference Range Interpretation Comments Neutrophils # (Auto) (test code = 751-8) 6.2 2.1-6.9 [facility] HospitalBlood lymphocytes count (number/volume) 2020-03-31 00:02:00* Test Item Value Reference Range Interpretation Comments Lymphocytes # (Auto) (test code = 95019-6) 2.5 1.0-3.2 [facility] HospitalBlood monocytes automated count (number/volume)2020-03-31 00:02:00* Test Item Value Reference Range Interpretation Comments Monocytes # (Auto) (test code = 742-7) 0.6 0.2-0.8 [facility] HospitalAutomated blood eosinophil count 2020-03-31 00:02:00* Test Item Value Reference Range Interpretation Comments Eosinophils # (Auto) (test code = 711-2) 0.8 0.0-0.4 [facility] HospitalAutomated blood basophil count (count/volume)2020-03-31 00:02:00* Test Item Value Reference Range Interpretation Comments Basophils # (Auto) (test code = 704-7) 0.0 0.0-0.1 [facility] HospitalFluoroscopic procedure less than one hour mwtjlcmf8737-54-01 00:02:00* Test Item Value Reference Range Interpretation Comments Absolute Immature Granulocyte (auto (cherrie t code = Absolute Immature Granulocyte (auto) 0.03 0-0.1 [facility]er[facility] plasma sodium measurement (moles/volume)2020-03-31 00:02:00* Test Item Value Reference Range Interpretation Comments Sodium Level (test code = 2951-2) 137 136-145 [facility] Hospitalerum or plasma potassium measurement (moles/volume)2020-03-31 00:02:00* Test Item Value Reference Range Interpretation Comments Potassium Level (test code = 2823-3) 4.3 3.5-5.1 [facility] Hospitalerum or plasma chloride measurement (moles/volume)2020-03-31 00:02:00* Test Item Value Reference Range Interpretation Comments Chloride Level (test code = 2075-0) 100 98-107 [facility] Hospitalerum or plasma carbon dioxide, total measurement (moles/volume)2020-03-31 00:02:00* Test Item Value Reference Range Interpretation Comments Carbon Dioxide Level (test code = 2028-9) 25 22-29 [facility] Hospitalerum or plasma anion zvw3002-96-07 00:02:00* Test Item Value Reference Range Interpretation Comments Anion Gap (test code = 08582-4) 16.3 8-16 [facility] Hospitalerum or plasma urea nitrogen measurement (mass/volume)2020-03-31 00:02:00* Test Item Value Reference Range Interpretation Comments Blood Urea Nitrogen (test code = 3094-0) 15 7-26 [facility] Hospitalerum or plasma creatinine measurement (mass/volume)2020-03-31 00:02:00* Test Item Value Reference Range Interpretation Comments Creatinine (test code = 2160-0) 0.80 0.57-1.11 [facility] Hospitalerum or plasma urea nitrogen/creatinine mass atmod6895-80-30 00:02:00* Test Item Value Reference Range Interpretation Comments BUN/Creatinine Ratio (test code = 3097-3) 19 6-25 [facility] HospitalEstimated glomerular filtration rate (GFR) udqyvrufxpfdf1144-04-87 00:02:00* Test Item Value Reference Range Interpretation Comments Estimat Glomerular Filtration Rate (test code = 728420648) > 60 >60 Ranges were taken from the National Kidney Disease Education Program and the [facility] literature.Reference ranges:60 or greater: Cknxrd69-78 ( for 3 consecutive months): Chronic kidney disease 15 or less: Kidney failureMemorial Hermann Cypress HospitalGlucose jeaftbhrpho8507-73-25 00:02:00* Test Item Value Reference Range Interpretation Comments Glucose Level (test code = LFE0551) 110 74-118 [facility] Hospitalerum or plasma calcium measurement (mass/volume)2020-03-31 00:02:00* Test Item Value Reference Range Interpretation Comments Calcium Level (test code = 36092-5) 9.5 8.4-10.2 [facility] Hospitalerum or plasma total bilirubin measurement (mass/volume)2020-03-31 00:02:00* Test Item Value Reference Range Interpretation Comments Total Bilirubin (test code = 1975-2) 0.2 0.2-1.2 [facility] HospitalFluoroscopic procedure less than one hour raxgdbpm8707-20-87 00:02:00* Test Item Value Reference Range Interpretation Comments Aspartate Amino Transf (AST/SGOT) (test code = Aspartate Amino Transf (AST/SGOT)) 12 5-34 [facility] Hospitalerum or plasma alanine aminotransferase measurement (enzymatic activity/volume)2020-03-31 00:02:00* Test Item Value Reference Range Interpretation Comments Alanine Aminotransferase (ALT/SGPT) (test code = 1742-6) 15 0-55 [facility] Hospitalerum or plasma protein measurement (mass/volume)2020-03-31 00:02:00* Test Item Value Reference Range Interpretation Comments Total Protein (test code = 2885-2) 7.5 6.5-8.1 [facility] Hospitalerum or plasma albumin measurement (mass/volume)2020-03-31 00:02:00* Test Item Value Reference Range Interpretation Comments Albumin (test code = 1751-7) 3.8 3.5-5.0 [facility] HospitalPlasma globulin measurement (mass/volume) 2020-03-31 00:02:00* Test Item Value Reference Range Interpretation Comments Globulin (test code = 11326-7) 3.7 2.3-3.5 [facility] Hospitalerum or plasma albumin/globulin mass ravop3749-50-22 00:02:00* Test Item Value Reference Range Interpretation Comments Albumin/Globulin Ratio (test code = 1759-0) 1.0 0.8-2.0 [facility] Hospitalerum or plasma alkaline phosphatase measurement (enzymatic activity/volume)2020-03-31 00:02:00* Test Item Value Reference Range Interpretation Comments Alkaline Phosphatase (test code = 6768-6) 83 40-150 [facility] Hospitalerum or plasma creatine kinase measurement (enzymatic activity/volume)2020-03-31 00:02:00* Test Item Value Reference Range Interpretation Comments Creatine Kinase (test code = 2157-6) 105 29-168 [facility] Hospitalerum or plasma creatine kinase MB measurement (mass/volume)2020-03-31 00:02:00* Test Item Value Reference Range Interpretation Comments Creatine Kinase MB (test code = 10908-6) 2.20 0-5.0 [facility] HospitalTroponin I measurement by highly sensitive enzyme vuuotdkxtpx2621-82-79 00:02:00* Test Item Value Reference Range Interpretation Comments Troponin I (test code = 24216-8) < 0.001 0-0.300 [facility]
[2020-05-23 22:52] LABS: BILIRUBIN,URINE NEGATIVE (NEGATIVE); CLARITY,URINE CLEAR (CLEAR); COLOR,URINE YELLOW (YELLOW); KETONES,URINE NEGATIVE (NEGATIVE); LEUKOCYTE ESTERASE ,URINE TRACE (NEGATIVE); NITRITE,URINE POSITIVE (NEGATIVE); PROTEIN,URINE DIPSTICK NEGATIVE (NEGATIVE); URINE UROBILINOGEN 0.2 mg/dL (0.2 - 1)
[2020-05-23 23:11] LABS: BACTERIA,URINE FEW /HPF; EPITHELIAL CELLS,URINE FEW /LPF; WBC,URINE (MAN) 21-50 /HPF (0-5)
[2020-05-23] MEDS ORDERED: BACTRIM DS TAB1 EACH PO (23:53)
[2020-05-23] MEDS ORDERED: KEFLEX500 MG PO (23:53)
--- NOTE | 2020-07-13 07:56 | Emergency Department Note ---
History of Present Illnes History of Present Illness Chief Complaint: Abdominal Complaints History of Present Illness This is a 80 year old female arrived to the ED with complaints of burning with urinary since early this morning. No back pain, no nausea/vomiting. patient states she started having urinary frequency and burning today at 4am. denies vomiting, patient states pain to suprapubic region but does not radiate to other parts of the abdomen. patient states she is having no difficulty urinating, bladder is soft and nondistended. Historian: Patient Arrival Mode: Car Onset (how long ago): hour(s) Severity: mild Onset quality: sudden Duration (how long): hour(s) Timing of current episode: constant Progression: unchanged Relieving factors: none Past Medical/Family History Physician Review I have reviewed the patient's past medical and family history. Any updates have been documented here. Past Medical History Recent Fever: No Clinical Suspicion of Infectio: No New/Unexplained Change in Ment: No Past Medical History: Hypertension, Diabetes, GERD, Hyperlipedemia Past Surgical History: Hysterectomy Social History Smoking Cessation: Never Smoker Counseling Performed: No Alcohol Use: None Any Illegal Drug Use: No Review of Systems Review of Systems Constitutional: Reports no symptoms EENTM: Reports no symptoms Cardiovascular: Reports no symptoms Respiratory: Reports no symptoms Gastrointestinal: Reports no symptoms Genitourinary: Reports as per HPI, Reports dysuria, Reports frequency Musculoskeletal: Reports no symptoms Integumentary: Reports no symptoms Neurological: Reports no symptoms Psychological: Reports no symptoms Endocrine: Reports no symptoms Hematological/Lymphatic: Reports no symptoms Physical Exam Related Data Allergies: Coded Allergies: Penicillins (Verified Allergy, Intermediate, 03/31/20) influenza virus vaccine, specific (Verified Allergy, Unknown, 05/09/20) Uncoded Allergies: FLU SHOT (Allergy, Unknown, 05/09/20) Vital signs reviewed: Yes Physical Exam CONSTITUTIONAL Constitutional: Present well-developed, Present well-nourished HENT HENT: Present normocephalic, Present atraumatic, Present oropharynx clear /moist, Present nose normal HENT L/R: Present left ext ear normal, Present right ext ear normal EYES Eyes: Reports PERRL, Reports conjunctivae normal NECK Neck: Present ROM normal PULMONARY Pulmonary: Present effort normal, Present breath sounds normal CARDIOVASCULAR Cardiovascular: Present regular rhythm, Present heart sounds normal, Present capillary refill normal, Present normal rate GASTROINTESTINAL Abdominal: Present soft, Present nontender, Present bowel sounds normal GENITOURINARY Genitourinary: Present exam deferred SKIN Skin: Present warm, Present dry MUSCULOSKELETAL Musculoskeletal: Present ROM normal NEUROLOGICAL Neurological: Present alert, Present oriented x 3, Present no gross motor or sensory deficits PSYCHOLOGICAL Psychological: Present mood/affect normal, Present judgement normal Results Imaging Imaging results reviewed: Yes Assessment & Plan Medical Decision Making MDM No evidence of pancreatitis, AAA, cholecystitis, choledocholithiasis, cholangitis, mesenteric ischemia, small bowel obstruction, diverticulitis, colitis, appendicitis, or pelvic etiology such as ovarian torsion, TOA, or ectopic . Assessment & Plan Final Impression: (1) Urinary tract infection Depart Disposition: HOME, SELF-senior living Meds Active Scripts Cephalexin Monohydrate (KEFLEX) 500 Mg Capsule, 500 MG PO Q6H, #40 TAB 0 Refills Prov:ELBA HOOVER, DO 05/23/20 Sulfamethoxazole/Trimethoprim (BACTRIM DS TABLET) 1 Each Tablet, 1 TAB PO BID, #20 TAB 0 Refills Prov:ELBA HOOVER, DO 05/23/20 Lidocaine/Menthol (LIDOPATCH) 1 Each Adh..patch, 1 PATCH TOP DAILY, #14 PATCH Prov:ELBA HOOVER, DO 05/09/20 Sulfamethoxazole/Trimethoprim (BACTRIM DS TABLET) 1 Each Tablet, 1 TAB PO BID, #20 TAB 0 Refills Prov:ELBA HOOVER, DO 05/09/20 Tramadol Hcl (ULTRAM) 50 Mg Tablet, 50 MG PO Q6HR PRN for Mild Pain (1-3) or Fever>100.8, #12 TAB Prov:ELBA HOOVER, DO 05/09/20 Reported Medications Loperamide Hcl (LOPERAMIDE) 2 Mg Tablet, 2 MG PO Q6H PRN for DIARRHEA, CAP 05/03/20 Clonidine Hcl (CLONIDINE HCL) 0.1 Mg Tablet, 1 TAB PO HS, #60 TAB 05/01/20 Loratadine (LORATADINE) 10 Mg Tablet, 10 MG PO DAILY, #30 TAB 05/01/20 Amlodipine Besylate (NORVASC) 10 Mg Tab, 10 MG PO DAILY, TAB 05/01/20 Omeprazole (OMEPRAZOLE) 20 Mg Capsule.dr, 20 MG PO DAILY 05/01/20 Metformin Hcl (METFORMIN HCL) 500 Mg Tablet, 1000 MG PO, #60 TAB 05/01/20 Simvastatin (SIMVASTATIN) 20 Mg Tablet, 40 MG PO HS, EA 05/01/20 Losartan Potassium (LOSARTAN POTASSIUM) 25 Mg Tablet, 12.5 MG PO DAILY 05/01/20 Diphenhydramine Hcl (BENADRYL) 25 Mg Capsule, PO PRN for ALLERGY 05/01/20 ELBA HOOVER, Jul 13, 2020 07:57
== END 2020-05-23 23:59 | disposition home or self-care (01) ==
LOC: ER 21:04
DX: R30.0 Dysuria (principal); N39.0 Urinary tract infection, site not specified; R10.30 Lower abdominal pain, unspecified; I10 Essential (primary) hypertension; E11.9 Type 2 diabetes mellitus without complications; E78.5 Hyperlipidemia, unspecified; K21.9 Gastro-esophageal reflux disease without esophagitis
CPT/HCPCS: 81001; 87086; 87186; 99282

== ENCOUNTER 2021-02-14 21:29 | Emergency (ER) | payer MEDICARE ==
[~2021-02-14] VITALS: Ht 165.1 cm; Wt 72.6 kg
[~2021-02-14 21:29] MED LIST changes: +KEFLEX500 MG PO
== END 2021-02-14 22:20 | disposition home or self-care (01) ==
LOC: ER 22:13
DX: H60.91 Unspecified otitis externa, right ear (principal); I10 Essential (primary) hypertension; E11.9 Type 2 diabetes mellitus without complications; E78.5 Hyperlipidemia, unspecified; K21.9 Gastro-esophageal reflux disease without esophagitis
CPT/HCPCS: 99282

== ENCOUNTER 2021-04-15 19:23 | Emergency (ER) | payer OTHER ==
[~2021-04-15] VITALS: Ht 152.4 cm; Wt 69.9 kg
[~2021-04-15 19:23] MED LIST changes: +AMLODIPINE BESY10 MG PO; +LOSARTAN POTAS100 MG PO; +METOPROLOL SUCC25 MG PO; +OMEPRAZOLE40 MG PO; +PANTOPRAZOLE SO40 MG PO; +SIMVASTATIN40 MG PO; +SUCRALFATE1 GM PO; +ZOFRAN8 MG PO
== END 2021-04-15 23:59 | disposition home or self-care (01) ==
LOC: MERGE 23:39 → ER 23:39
DX: M79.605 Pain in left leg (principal); M79.604 Pain in right leg; E11.40 Type 2 diabetes mellitus with diabetic neuropathy, unspecified; I10 Essential (primary) hypertension; E78.5 Hyperlipidemia, unspecified

== ENCOUNTER 2022-08-23 12:01 | Emergency (ER) | payer MEDICARE, MEDICAID ==
[~2022-08-23] VITALS: Ht 165.1 cm; Wt 72.6 kg
[~2022-08-23 12:01] MED LIST changes: +COZAAR25 MG PO; +TOPROL XL25 MG PO
[2022-08-23] MEDS ORDERED: ONDANSETRON HCL INJ 2MG/ML 2ML 2 MG/ML VIAL IV STA (13:06)
[2022-08-23] MEDS ORDERED: SODIUM CHLORIDE 0.9% 1000ML 500 ML IV ONE (13:15)
[2022-08-23] MEDS ORDERED: SODIUM CHLORIDE 0.9% 1000ML 1,000 ML ONE (13:23)
[2022-08-23] MEDS ORDERED: ONDANSETRON HCL INJ 2MG/ML 2ML 2 MG/ML VIAL ONE (13:23)
[2022-08-23 13:29] LABS: BASOPHILS % 0.5 % (0.0-1.0); EOSINOPHILS % 0.7 % (0.0-6.0); HEMATOCRIT 35.9 % (34.2-44.1); HEMOGLOBIN 11.5 g/dL (12.0-16.0); LYMPHOCYTES # (AUTO) 0.4 (1.0-3.2); MEAN CORPUSCULAR VOLUME 87.6 fL (81-99); MONOCYTES # (AUTO) 0.4 (0.2-0.8); MONOCYTES % 9.4 % (4.4-11.3); NEUTROPHILS # (AUTO) 3.5 (2.1-6.9); NEUTROPHILS % 80.9 % (38.7-80.0); PLATELET COUNT 259 x10e3/uL (140-360); RED CELL DISTRIBUTION WIDTH 14.4 % (11.7-14.4)
[2022-08-23 13:52] LABS: ALBUMIN 3.8 g/dL (3.5-5.0); ALBUMIN/GLOBULIN RATIO 1.1 (0.8-2.0); ANION GAP 14.9 mmol/L (8-16); CALCIUM 8.8 mg/dL (8.4-10.2); CREATININE, SERUM 0.77 mg/dL (0.57-1.11); POTASSIUM 3.9 mmol/L (3.5-5.1)
[2022-08-23] MEDS ORDERED: IOPAMIDOL 370 MG/ML 100 ML INFUS..BTL INJ ONE ×2 (14:13→14:27)
[2022-08-23 14:27] LABS: CLARITY,URINE HAZY (CLEAR); COLOR,URINE YELLOW (YELLOW); KETONES,URINE NEGATIVE (NEGATIVE); LEUKOCYTE ESTERASE ,URINE NEGATIVE (NEGATIVE); NITRITE,URINE NEGATIVE (NEGATIVE); PROTEIN,URINE DIPSTICK 2+ (NEGATIVE); URINE UROBILINOGEN 0.2 mg/dL (0.2 - 1)
[2022-08-23 14:50] LABS: BACTERIA,URINE MANY /HPF
[2022-08-23] MEDS ORDERED: BEBTELOVIMAB 175 MG INJ IV ONE (15:30)
[2022-08-23] MEDS ORDERED: ONDANSETRON ODT4 MG PO (15:44)
[2022-08-23 16:11] VITALS: BP 171/58
== END 2022-08-23 16:07 | disposition home or self-care (01) ==
LOC: ER 12:06
DX: U07.1 COVID-19 (principal); R11.2 Nausea with vomiting, unspecified; I10 Essential (primary) hypertension; E11.9 Type 2 diabetes mellitus without complications; K21.9 Gastro-esophageal reflux disease without esophagitis; E78.5 Hyperlipidemia, unspecified; Z88.0 Allergy status to penicillin; Z88.7 Allergy status to serum and vaccine; Z79.84 Long term (current) use of oral hypoglycemic drugs; Z79.899 Other long term (current) drug therapy; Z87.19 Personal history of other diseases of the digestive system
CPT/HCPCS: 36415; 71045; 74177; 80053; 81001; 83690; 84484; 85025; 93005; 99284; J2405; J7030; Q9967; U0002

== ENCOUNTER 2023-01-02 10:09 | Emergency (ER) | payer MEDICARE, MEDICAID ==
[~2023-01-02] VITALS: Ht 165.1 cm; Wt 72.6 kg
[~2023-01-02 10:09] MED LIST changes: +ONDANSETRON ODT4 MG PO
[2023-01-02 10:46] LABS: BASOPHILS # (AUTO) 0.1 (0.0-0.1); BASOPHILS % 0.6 % (0.0-1.0); EOSINOPHILS # (AUTO) 0.4 (0.0-0.4); EOSINOPHILS % 4.4 % (0.0-6.0); HEMATOCRIT 38.9 % (34.2-44.1); HEMOGLOBIN 13.2 g/dL (12.0-16.0); LYMPHOCYTES # (AUTO) 1.5 (1.0-3.2); LYMPHOCYTES % 18.5 % (18.0-39.1); MEAN CORPUSCULAR HGB CONC 33.9 g/dL (31-35); MEAN CORPUSCULAR VOLUME 85.5 fL (81-99); MONOCYTES # (AUTO) 0.5 (0.2-0.8); MONOCYTES % 6.1 % (4.4-11.3); NEUTROPHILS # (AUTO) 5.9 (2.1-6.9); NEUTROPHILS % 70.3 % (38.7-80.0); PLATELET COUNT 327 x10e3/uL (140-360); RED BLOOD COUNT 4.55 x10e6/uL (3.6-5.1); RED CELL DISTRIBUTION WIDTH 12.9 % (11.7-14.4)
[2023-01-02 11:09] LABS: CALCIUM 9.5 mg/dL (8.4-10.2); CREATININE, SERUM 0.78 mg/dL (0.57-1.11)
[2023-01-02 11:35] LABS: CLARITY,URINE CLEAR (CLEAR); COLOR,URINE YELLOW (YELLOW); KETONES,URINE NEGATIVE (NEGATIVE); LEUKOCYTE ESTERASE ,URINE NEGATIVE (NEGATIVE); NITRITE,URINE NEGATIVE (NEGATIVE); PROTEIN,URINE DIPSTICK >=300 (NEGATIVE); URINE UROBILINOGEN 0.2 mg/dL (0.2 - 1)
[2023-01-02 11:36] LABS: BACTERIA,URINE MODERATE /HPF; EPITHELIAL CELLS,URINE MODERATE /LPF; WBC,URINE (MAN) 0-5 /HPF (0-5)
[2023-01-02 11:37] LABS: MUCUS,URINE FEW (RARE)
[2023-01-02] MEDS ORDERED: IOPAMIDOL 370 MG/ML 100 ML INFUS..BTL INJ ONE (11:38)
[2023-01-02] MEDS ORDERED: DONNATAL/LIDOCAINE/MAALOX 30 ML SUSP PO ONE (12:15)
[2023-01-02] MEDS ORDERED: FAMOTIDINE 20 MG TAB PO ONE (12:15)
[2023-01-02] MEDS ORDERED: PREVACID30 MG PO (13:34)
[2023-01-02] MEDS ORDERED: ONDANSETRON ODT4 MG PO (13:34)
== END 2023-01-02 13:52 | disposition home or self-care (01) ==
LOC: ER 10:17
DX: R10.13 Epigastric pain (principal); K29.70 Gastritis, unspecified, without bleeding; R11.2 Nausea with vomiting, unspecified; K57.90 Diverticulosis of intestine, part unspecified, without perforation or abscess without bleeding; I10 Essential (primary) hypertension; E11.65 Type 2 diabetes mellitus with hyperglycemia; E78.5 Hyperlipidemia, unspecified; K21.9 Gastro-esophageal reflux disease without esophagitis; Z20.822 Contact with and (suspected) exposure to COVID-19; R94.31 Abnormal electrocardiogram [ECG] [EKG]
CPT/HCPCS: 36415; 74177; 80053; 81001; 83690; 84484; 85025; 87086; 87186; 93005; 99284; Q9967; U0002

== ENCOUNTER 2024-10-12 18:10 | Emergency (ER) | payer MEDICARE, MEDICAID ==
[~2024-10-12] VITALS: Ht 152.4 cm; Wt 69.9 kg
[~2024-10-12 18:10] MED LIST changes: +PREVACID30 MG PO
[2024-10-12 19:44] LABS: BASOPHILS # (AUTO) 0.1 (0.0-0.1); BASOPHILS % 0.7 % (0.0-1.0); EOSINOPHILS % 0.4 % (0.0-6.0); HEMATOCRIT 40.7 % (34.2-44.1); HEMOGLOBIN 12.9 g/dL (12.0-16.0); LYMPHOCYTES # (AUTO) 0.9 (1.0-3.2); LYMPHOCYTES % 9.1 % (18.0-39.1); MEAN CORPUSCULAR HEMOGLOBIN 30.1 pg (28-32); MEAN CORPUSCULAR HGB CONC 31.7 g/dL (31-35); MEAN CORPUSCULAR VOLUME 95.1 fL (81-99); MONOCYTES # (AUTO) 0.4 (0.2-0.8); MONOCYTES % 3.7 % (4.4-11.3); NEUTROPHILS # (AUTO) 8.2 (2.1-6.9); NEUTROPHILS % 85.7 % (38.7-80.0); PLATELET COUNT 284 x10e3/uL (140-360); RED BLOOD COUNT 4.28 x10e6/uL (3.6-5.1); RED CELL DISTRIBUTION WIDTH 12.7 % (11.7-14.4); WHITE BLOOD COUNT 9.63 x10e3/uL (4.8-10.8)
[2024-10-12 19:56] LABS: ANION GAP 18.2 mmol/L (8-16); BILIRUBIN,TOTAL 0.7 mg/dL (0.2-1.2); CALCIUM 9.8 mg/dL (8.4-10.2); CREATININE, SERUM 0.8 mg/dL (0.57-1.11); POTASSIUM 4.2 mmol/L (3.5-5.1)
[2024-10-12 20:05] LABS: CLARITY,URINE HAZY (CLEAR); COLOR,URINE YELLOW (YELLOW); LEUKOCYTE ESTERASE ,URINE NEGATIVE (NEGATIVE); PH,URINE 7 (5 - 7)
[2024-10-12 20:06] LABS: BILIRUBIN,URINE NEGATIVE (NEGATIVE); GLUCOSE, URINE 1+ (NEGATIVE); KETONES,URINE NEGATIVE (NEGATIVE); NITRITE,URINE NEGATIVE (NEGATIVE); PROTEIN,URINE DIPSTICK >=300 (NEGATIVE); URINE UROBILINOGEN 0.2 mg/dL (0.2 - 1)
[2024-10-12] MEDS ORDERED: IOPAMIDOL 370 MG/ML 100 ML INFUS..BTL INJ ONE (20:07)
[2024-10-12 20:16] LABS: TROPONIN I 0.013 ng/mL (0-0.300)
[2024-10-12 20:44] LABS: BACTERIA,URINE MODERATE /HPF; EPITHELIAL CELLS,URINE FEW /LPF; WBC,URINE (MAN) 21-50 /HPF (0-5)
[2024-10-12] MEDS: SODIUM CHLORIDE 0.9% 1000ML 1,000 ML IV ONE (21:26)
[2024-10-12] MEDS: ONDANSETRON HCL INJ 2MG/ML 2ML 2 MG/ML VIAL IV STA (21:26)
[2024-10-12] MEDS: Morphine 4mg INJECTION 4 MG/ML INJ IV ONE (21:27)
[2024-10-13 01:20] VITALS: PULSE 60; RESP 15; O2SAT 93
[2024-10-13 01:33] VITALS: TEMP 98.6
== END 2024-10-13 01:36 | disposition other institution (70) ==
LOC: ER 18:30
DX: R11.2 Nausea with vomiting, unspecified (principal); N39.0 Urinary tract infection, site not specified; R10.33 Periumbilical pain; E11.65 Type 2 diabetes mellitus with hyperglycemia; I10 Essential (primary) hypertension; E78.5 Hyperlipidemia, unspecified; G50.0 Trigeminal neuralgia; K21.9 Gastro-esophageal reflux disease without esophagitis; Z87.19 Personal history of other diseases of the digestive system
CPT/HCPCS: 36415; 74177; 80053; 81001; 83690; 84484; 85025; 87086; 93005; 99284; J0696; J2270; J2405; J7030; Q9967